=== PATIENT | female | born 1940 | race Caucasian/White ===

== ENCOUNTER 2016-07-11 09:05 | Inpatient (IN) | payer MEDICARE, OTHER ==
--- NOTE | 2016-06-28 08:29 | HP ---
HISTORY AND PHYSICAL: DATE OF ADMISSION/SURGERY: 07/11/16 DATE OF OFFICE VISIT: 06/23/16 ATTENDING SURGEON: Eulalia Jones MD. PROCEDURE: Right total knee arthroplasty. CHIEF COMPLAINT: Right knee pain. HISTORY OF PRESENT ILLNESS: The patient is a very pleasant 76-year-old female with a longstanding history of osteoarthritis of her right knee, who has elected to undergo a right knee replacement on 07/11/[address] Eulalia Jones after failing conservative treatment. PAST MEDICAL HISTORY: 1. Hypertension. 2. Asthma. 3. Hypercholesterolemia. 4. History of breast cancer. 5. Osteoarthritis, right knee. PAST SURGICAL HISTORY: 1. Partial meniscectomy. 2. Left knee replacement. MEDICATIONS: 1. Hydrochlorothiazide 5 mg one tablet by mouth daily. 2. Nifedipine ER 60 mg one tablet by mouth daily. 3. Prinivil 5 mg one tablet by mouth daily. 4. Evista 600 mg one tablet by mouth daily. 5. Ibuprofen 200 mg p.o. p.r.n. 6. Cuca allergy 180 mg one tablet by mouth daily. 7. Vitamin D supplement. 8. Fish oil supplement. 9. Multivitamin supplement daily. 10. Tums supplement as needed. 11. Xanax, unknown dosage for sleeping. 12. Melatonin. ALLERGIES: No known drug allergies. FAMILY HISTORY: Maternal cancer and hypertension, paternal hypertension. SOCIAL HISTORY: No tobacco use, no alcohol use. Currently living with . REVIEW OF SYSTEMS: General: Negative for fevers, chills, night sweats. No difficulty with anesthesia. HEENT: Negative for headaches, lightheadedness, or syncopal episodes. Integument: Negative for abrasions, lesions, open wounds or sores. Cardiothoracic: Negative for chest pain, palpitations or edema. Positive for hypertension. Pulmonary: Negative for shortness of breath with exertion, chronic cough, or COPD. GI: Negative for nausea, vomiting, constipation, diarrhea. Positive for GERD. : Negative for nocturia, urinary frequency, urgency, history of UTIs, or kidney problems. Musculoskeletal: Positive for intermittent back pain. Positive for bilateral shoulder pain. Positive for right knee pain. Neuro: Negative for paresthesias , numbness. No history of seizure, stroke, or epilepsy. Endocrine: Negative for diabetes. Negative for thyroid issues. Hematologic: Positive for easy bruising. Negative for anemia. Negative for excessive bleeding. No history of DVT or PE. ID: No history of MRSA, hepatitis C or HIV. PHYSICAL EXAMINATION GENERAL: Well appearing, in no acute distress, alert and oriented. VITAL SIGNS: Height 63 inches, weight 142 pounds, pulse 54, blood pressure 150/ 64, temperature 97.6, BMI 25.2. HEENT: Normocephalic, atraumatic, EOMI. PULMONARY: Lungs clear to auscultation bilaterally. No crackles, rhonchi or wheezes. CARDIAC: Regular rate and rhythm. Normal S1, S2. Positive grade 3 heart murmur. No edema noted bilaterally. ABDOMEN: Soft, nontender and nondistended. Normoactive bowel sounds. Negative CVA tenderness bilaterally. NEUROLOGIC: Alert and oriented x3. Cranial nerves grossly intact. Sensation intact to light touch. MUSCULOSKELETAL: No open wounds or sores bilateral lower extremities. Posterior tibialis pulses 2+ bilaterally. Negative Guero sign bilaterally. Approximately 15 degrees valgus deformity with MCL laxity. RADIOGRAPH: Three views of the knee acquired on 06/02/16. ASSESSMENT AND PLAN: The patient is very pleasant 76-year-old female who is currently scheduled to undergo a right total knee arthroplasty on 07/13/16. The patient met with Dr. Jones who reviewed the risks and benefits of the procedure as well as the informed consent. Prescriptions for Coumadin, Percocet and Colace were sent to the patient's pharmacy for postoperative pain management and DVT prophylaxis. The patient had no further questions or concerns, and will contact us if any do arise. She was cleared by her primary care physician, Dr. Cool, on 06/20/16. DIGNA VILLELA [id number]/[facility] #: [id number] MTDMoses
[~2016-07-11 09:05] MED LIST: Buffered Lidocaine 1% SYRIN* 3 ML/SYR SYRINGE INTRADERM ONE; Dexamethasone IV* 4 MG/ML 1 ML (4 MG) IV SLOW PU ONE; DiMENhydriNATE IV* 50 MG/ML VIAL IV PUSH PRN; Famotidine IV* 10 MG/ML 2 ML (20 mg) IV ONE; HYDROmorphone* 1 MG/ML 1 ML SYR ONE; Midazolam* 1 MG/ML 2 ML VIAL (2 MG) ONE; Morphine PF AMP (0.5MG/ML)* 5 MG/10 ML AMP ONE; Ondansetron INJ* 2 MG/ML VIAL IV PRN; PROCHLORPERAZINE INJ 5 MG/ML 2 ML VIAL IV PRN; fentaNYL* 50 MCG/ML 2 ML VIAL (100 MCG VIAL) IV PRN; fentaNYL* 50 MCG/ML 2 ML VIAL (100 MCG VIAL) ONE
[2016-07-11] MEDS ORDERED: ceFAZolin 2 GM PREMIX(*) 2 GM/50 ML BAG IVPB ONE (09:20)
[2016-07-11] MEDS ORDERED: Dexamethasone IV* 4 MG/ML 1 ML (4 MG) ONE (09:20)
[2016-07-11] MEDS ORDERED: Famotidine IV* 10 MG/ML 2 ML (20 mg) ONE (09:20)
[2016-07-11] MEDS ORDERED: fentaNYL* 50 MCG/ML 2 ML VIAL (100 MCG VIAL) ONE ×2 (10:15→13:01)
[2016-07-11] MEDS ORDERED: HYDROmorphone* 1 MG/ML 1 ML SYR ONE ×2 (10:56→14:35)
[2016-07-11] MEDS ORDERED: Meperidine SYRINGE* 50 MG/ML ONE (12:26)
[2016-07-11] MEDS ORDERED: DiMENhydriNATE IV* 50 MG/ML VIAL IV PUSH PRN (13:11)
[2016-07-11] MEDS ORDERED: Ondansetron INJ* 2 MG/ML VIAL IV PRN (13:11)
[2016-07-11] MEDS ORDERED: Naloxone* 0.4 MG/ML 1 ML VIAL IV PRN (13:11)
[2016-07-11] MEDS ORDERED: Nalbuphine* 20 MG/ML 1 ML VIAL IV PRN (13:11)
[2016-07-11] MEDS ORDERED: PROCHLORPERAZINE INJ 5 MG/ML 2 ML VIAL IV PRN (13:11)
[2016-07-11] MEDS ORDERED: diPHENhydraMINE IV* 50 MG/ML 1 ml VIAL (BENADRYL) IV PRN (13:11)
[2016-07-11] MEDS ORDERED: Acetaminophen TAB* 325 MG PO PRN (15:20)
[2016-07-11] MEDS ORDERED: Bisacodyl SUPP* 10 MG SUPP PR PRN (15:20)
[2016-07-11] MEDS ORDERED: Polyethylene Glycol 3350* 17 GM PACKET PO PRN (15:20)
[2016-07-11] MEDS ORDERED: LACTULOSE* 30 ML UDC PO PRN (15:20)
[2016-07-11] MEDS ORDERED: Albuterol 2.5 MG/3 ML NEB.SOL* (0.083%) INH PRN (15:50)
--- NOTE | 2016-07-11 16:07 | RAD ---
INDICATION: Status post total right knee replacement surgery. COMPARISON: Comparison is made with a prior x-ray study of the right knee from June 02, 2016. TECHNIQUE: 2 views of the right knee were obtained. FINDINGS: The patient is status post total knee replacement surgery. The bones and prostheses are in normal alignment. There is a small amount of air within the joint and surrounding soft tissues consistent with the patient's recent surgery. IMPRESSION: STATUS POST TOTAL RIGHT KNEE REPLACEMENT SURGERY.
[2016-07-11] MEDS ORDERED: Warfarin TAB(*) 6 MG PO ONE (21:00)
--- NOTE | 2016-07-11 21:16 | CONS ---
CONSULTATION REPORT: DATE OF ADMISSION: 07/11/16 PRIMARY CARE PROVIDER: Dr. Cool. ATTENDING PHYSICIAN WHILE IN THE HOSPITAL: [place] Thorne DO (report dictated by Chaitanya Davison NP). REQUESTING PHYSICIAN FOR CONSULT: Dr. Eulalia Jones. REASON FOR MEDICAL CONSULTATION: Medical management of comorbid medical conditions. HISTORY OF PRESENT ILLNESS: I refer you to Dr. Jones's H and P for further details. In short, Ms. Ocampo is a 76-year-old female patient who presented to Dr. Jones's services today for an elective right total knee replacement. She has been dealing with right knee pain for sometime to the point where the knee pain has been affecting her activities of daily living. She had been failing conservative management and she sought care with Dr. Jones and it was felt that a total knee replacement was warranted and the patient pursued this option. She does carry a history of hypertension, asthma, hyperlipidemia, breast cancer, and osteoporosis. She was evaluated in the PACU. She said she is feeling well and she has a dry mouth as her biggest complaint. She denies having any chest pain. She denies having any abdominal discomfort. Denies feeling nauseous. She says she has no feeling in the lower extremities. Denies any lightheadedness or dizziness. She says she just feels tired. Because of her medical complexity, the hospitalist service was asked to evaluate in consult. PAST MEDICAL HISTORY: Significant for: 1. Hypertension. 2. Asthma. 3. Hyperlipidemia. 4. Breast cancer. 5. Osteoporosis. PAST SURGICAL HISTORY: 1. She has had a left total knee replacement. 2. Now, she has had a right total knee replacement. 3. She has had a history of a breast surgery for breast cancer. HOME MEDICATIONS: According to the list that she provided preoperatively include: 1. Lactase enzyme 0.5 to 2 tabs p.o. before meals as needed. 2. Turmeric 1 tablet p.o. daily. 3. Simvastatin 20 mg p.o. daily. 4. Evista 60 mg daily. 5. [place]-3 fatty acids 1000 mg p.o. q.a.m. 6. Nifedipine 60 mg p.o. daily. 7. Multivitamin 1 tablet p.o. q.a.m. 8. Melatonin 3 mg p.o. at bedtime as needed. 9. Lisinopril 5 mg p.o. daily. 10. Ibuprofen 400 mg p.o. every day as needed. 11. Fexofenadine 60 mg p.o. daily as needed. 12. Vitamin D 1000 units p.o. daily. 13. Calcium carbonate 500 mg p.o. daily as needed. 14. Dymista 1 spray both nares b.i.d. 15. Xanax 0.5 mg p.o. at bedtime as needed. ALLERGIES TO MEDICATIONS: Include SHELLFISH, LATEX, GRAPES, KIWI. FAMILY HISTORY: Her mother had a history of cancer. Father's history was reviewed and noncontributory. SOCIAL HISTORY: The patient is a nonsmoker. She does not drink alcohol. Surrogate decision maker is her . REVIEW OF SYSTEMS: There is no documented fever. She denied having any significant weight change. There was no double vision. No ear discharge. There is no rhinorrhea. No sore throat. No thyroid enlargement. She denied having any chest pain. There is no orthopnea. No nocturnal dyspnea. There is no abdominal pain. No nausea. No vomiting. No dysuria. No frequency. No seizure. No loss of consciousness. No pruritus. No skin ulcerations. Review of 14 systems completed, all others negative. PHYSICAL EXAMINATION: Vital Signs: Blood pressure 103/51, pulse 71, respirations 14, O2 sat 99%, temperature 97.9. Generally, at this time, Ms. Ocampo is a 76- year-old female patient. She does not appear to be in any acute distress. She is well nourished, well developed. HEENT: Head is atraumatic, normocephalic. Eyes: EOMs are intact. Sclerae were anicteric and not pale. Throat: Oral mucosa appears to be dry. No oropharyngeal erythema. Neck was supple. Heart: Sounds S2. Regular rate and rhythm. No murmurs, rubs , or gallops. Lungs: Clear to auscultation bilaterally. No wheezes, rales, or rhonchi. Abdomen was soft, flat. Bowel sounds hypoactive. Extremities: Pulses were 2+ throughout. She is unable to move the lower extremities because of the spinal and nerve block. She is moving the upper extremities with 5/5 strength. Neurologically, she is awake, alert, and oriented x3. She is drowsy , but she has no gross focal deficits. The skin is intact. She has an incision to her right lower extremity, which is covered with an Kamlesh dressing, is clean, dry, and intact. DIAGNOSTIC STUDIES/LAB DATA: Her labs preop revealed WBC of 6.2, RBC of 4.22, hemoglobin 12.8, hematocrit of 39, platelet count of 189. The INR was 0.90. Sodium 139, potassium 3.7, chloride of 105, bicarb 30, BUN 27, creatinine of 0.92, glucose of 108. Urine preop showed 1+ leukocyte esterase, 1+ rbc. Microbiology was negative. She had a preop EKG, which showed a normal sinus rhythm, rate of 70. No ST elevation or T-wave inversions. There was a preop chest x-ray, which revealed hyperinflation consistent with COPD. No active cardiopulmonary disease. Old medical records were reviewed. ASSESSMENT AND PLAN: Ms. Ocampo is a 76-year-old female patient coming in to the orthopedic services today for an elective right total knee replacement. We were asked to evaluate for medical management of her medical problems. Recommendations at this point are: 1. Status post right total knee replacement: I will defer the management to Dr. Jones and her team. 2. Hypertension: Her blood pressure here is in the low 100s. She did get the Duramorph. So, I am going to hold her antihypertensives and restart them when able. 3. Asthma: I have ordered p.r.n. albuterol. 4. Hyperlipidemia: Continue statin therapy. 5. Breast cancer: Continue current medical regimen. Follow with her primary. 6. Osteoporosis: Continue her Evista. 7. DVT prophylaxis: We will defer to the primary team. 8. Fluids, electrolytes, and nutrition. She can have a regular diet. 9. Code status: Full code. TIME SPENT: Time spent on the consult was 60 minutes; greater than half the time was spent [id number] with the patient obtaining my history and physical, the other half the time spent going over the plan of care with the patient and implementing plan of care. I did discuss the plan of care with my attending, Dr. Thorne; she is in agreement. CHAITANYA DAVISON NP CC: Dr. Cool* [id number]/[facility] #: [id number] ALEXA
[2016-07-11] MEDS: Docusate CAP* 100 MG PO SCH (21:47)
[2016-07-11] MEDS: ceFAZolin 1 GM in Dextrose (*) 1 GM/50 ML BAG IVPB SCH (21:57)
[2016-07-11] MEDS: oxyCODONE/Acetamin 5/325 MG* TAB PO PRN (23:06)
[2016-07-12] MEDS: oxyCODONE/Acetamin 5/325 MG* TAB PO PRN ×4 (04:59→21:44)
[2016-07-12] MEDS ORDERED: diPHENhydraMINE IV* 50 MG/ML 1 ml VIAL (BENADRYL) IV PRN (05:00)
[2016-07-12] MEDS ORDERED: Morphine INJ* 2 MG/ML 1 ML SYRINGE IV PRN (05:00)
[2016-07-12] MEDS ORDERED: oxyCODONE TAB* 5 MG TAB PO PRN (05:00)
[2016-07-12] MEDS ORDERED: Ondansetron TAB* 4 MG PO PRN (05:00)
[2016-07-12] MEDS ORDERED: oxyCODONE/Acetamin 5/325 MG* TAB PO PRN (05:00)
[2016-07-12] MEDS: ceFAZolin 1 GM in Dextrose (*) 1 GM/50 ML BAG IVPB SCH ×2 (05:36→13:46)
[2016-07-12 06:14] LABS: Hematocrit 33 % (35-47); Hemoglobin 10.7 g/dl (12.0-16.0)
[2016-07-12 06:33] LABS: BUN/Creatinine Ratio 21.7 (8-20); EGFR African American 106.7 (>60); EGFR Non-African American 82.9 (>60); Potassium 3.9 mmol/L (3.5-5.0)
--- NOTE | 2016-07-12 07:21 | OP ---
DATE OF OPERATION: 07/11/16 - ROOM #346 DATE OF : 42 SURGEON: Eulalia Jones MD. FUNCTIONAL SUPPORT ANALYST: DIGNA Beach. ANESTHESIOLOGIST: Dr. Pickering. ANESTHESIA: Spinal with adductor nerve block. PRE-OP DIAGNOSIS: Severe endstage degenerative osteoarthritis of the right knee joint with valgus deformity. POST-OP DIAGNOSIS: Severe endstage degenerative osteoarthritis of the right knee joint with valgus deformity and extreme osteopenia. OPERATIVE PROCEDURE: Right total knee arthroplasty. TOURNIQUET TIME: 53 minutes. ESTIMATED BLOOD LOSS: 200 cc. COMPLICATIONS: None. SPECIMEN: Bone and cartilage from the right knee joint sent to Pathology. HARDWARE: This is a [employer] cemented total knee hardware. Two packages of Simplex bone cement were used. For the femur, a size 5 right narrow posterior stabilized Legion femoral component; for the tibia a size 4 right tibial base plate; for the insert a 9 mm posterior stabilized insert; and for the patella a 32 mm 7.5 thickness 2-peg all-poly patella. BRIEF HISTORY/INDICATIONS: Ms. Ocampo is a 76-year-old female with years of increasingly severe right knee pain and valgus deformity. She failed conservative treatment with antiinflammatories, pain medications, intraarticular injections and physical therapy. She elected to undergo a right total knee arthroplasty due to continued pain and decreased quality of life. Radiographs confirmed [id number] arthritis in the lateral compartment. Informed consent was obtained from the patient. She understood the risks of the surgery included but were not limited to bleeding, infection, damage to nearby structures, continued pain, need for further surgery, intraoperative fracture, nerve palsy, hardware failure or loosening, knee stiffness, loss of motion, stroke, heart attack, blood clot and . She wished to proceed. INTRAOPERATIVE FINDINGS: Intraoperatively, the patient was noted to have 12- degree valgus deformity preoperatively, which was corrected to anatomic valgus alignment. She had some recurvatum preoperatively and 130-degrees of flexion. The patient was noted to have significant lateral femoral condylar hypoplasia. Complete loss of cartilage in the lateral and patellofemoral compartments was noted. DESCRIPTION OF PROCEDURE: Ms. Ocampo was identified in the preanesthesia unit. Her right lower extremity was marked as the correct operative side. Informed consent was signed and placed in the chart. The patient was taken to the operating room and placed under spinal anesthesia with an adductor nerve block. A Damon catheter was placed. Thigh-high tourniquet was placed on the right thigh. The right lower extremity was prepped and draped in the usual sterile fashion. A preop time-out was made to correctly identify the patient's side and site. Appropriate perioperative antibiotics were given within 1 hour of incision. Tourniquet was inflated and total tourniquet time for this procedure was 53 minutes. A 12 cm midline incision was made with a 10 blade and carried down to the extensor mechanism. A new 10 blade was used to make a standard medial peripatellar arthrotomy. The patella was subluxed laterally. Electrocautery was used to subperiosteally elevate soft tissue off the superomedial tibia to the mid sagittal plane. The knee was flexed up. Anterior horn of the lateral meniscus and ACL were sharply released. A drill was used to enter the distal femur. Intramedullary distal femoral cutting guide was pinned on the distal femur. Significant lateral femoral condylar hypoplasia was noted and accounted for. Oscillating saw was used to make the distal femoral cut. Next, the external rotation guide was placed on the distal femur and the distal femur was sized to a size 5. Size 5 multi-cutting jig was placed on the distal femur and the appropriate four chamfer cuts were made with an oscillating saw. The PCL was completely released. The tibia was subluxed anteriorly. Extramedullary tibial cutting guide was pinned on the proximal tibia. Oscillating saw was used to make the appropriate proximal tibial cut. The bone was carefully removed. The knee was brought out into full extension. Spacer blocks fit well with some mild lateral tightness. A 15-blade was used to piecrust lateral ligament conservatively. Medial and lateral ligaments balancing was much improved. Flexion and extension gap was well balanced. A trial 5 narrow right femur was impacted onto the distal femur. The box for the posterior stabilized implant was prepared using a reamer and box cut osteotome. A large intraosseous cyst was noted and there was some bone loss here. Trial size 4 tibial tray and a 9 mm insert trial were placed. The knee was taken through a range of motion. It had full extension to 130 degrees of flexion with good patellofemoral tracking. The patella was everted. The patella was noted to have complete loss of cartilage. 7 mm of patellar bone and cartilage was removed with an oscillating saw. The patella was sized to a size 32. Three peg holes were drilled through the size 32 guide. A trial 7.5 thickness, 32 patella was placed and the knee was taken through a range of motion. There was good patellofemoral tracking. All trials were carefully removed. The knee was flexed up and the tibia was subluxed anteriorly. The tibia was sized to a size 4. Proximal tibia was prepared using a keel punch. All bony cut surfaces were copiously irrigated and dried. It was noted once again that there was severe osteopenia involving this bone, which was quite remarkable. Final implants were cemented into place starting with the tibia followed by the femur and last the patella. A 9 mm insert trial was placed while the knee was brought out to full extension and the cement was allowed to fully cure. Tourniquet was turned down at 53 minutes. Once the cement had fully cured, the knee was copiously irrigated with sterile saline. Electrocautery was used to obtain meticulous hemostasis. A 9 mm insert trial was chosen as the final insert. This was locked into position on the tibial tray. Stability of the insert was checked and rechecked, and noted to be stable. The knee was once again copiously irrigated with sterile saline. The extensor mechanism was closed using interrupted #1 Vicryls. The rest of the incision was closed in a layered fashion using 0 and 2-0 Vicryls. Skin was closed using running 3-0 nylon suture. Sterile Xeroform, 4x4s and Webril were used to cover the incision. Kamlesh wrap and cold pack were placed over this. The patient's anesthesia was reversed without difficulty. She was taken to PACU in stable condition. Intended weightbearing will be weightbearing as tolerated. Intended DVT prophylaxis will be Coumadin with a Lovenox bridge. [id number]/[facility] #: [id number] ALEXA
[2016-07-12] MEDS: RALOXIFENE 60 MG PO SCH (08:50)
[2016-07-12] MEDS ORDERED: NIFEdipine ER TAB* 60 MG PO SCH (09:00)
[2016-07-12] MEDS ORDERED: Lisinopril TAB* 5 MG PO SCH (09:00)
[2016-07-12] MEDS: NIFEdipine ER TAB* 60 MG PO SCH (09:05)
[2016-07-12] MEDS: Atorvastatin* 10 MG TAB PO SCH (09:06)
[2016-07-12] MEDS: Docusate CAP* 100 MG PO SCH ×2 (09:06→21:44)
--- NOTE | 2016-07-12 09:44 | PN ---
Progress Note - Progress Note SOAP: Subjective: []Patient seen OOB in chair, pleasant but slightly anxious. Pain well managed. Denies SOB, CP or dizziness. Objective: [] Vital Signs Temp 97.5 F 07/12/16 07:40 Pulse 55 07/12/16 07:40 Resp 18 07/12/16 09:06 BP 153/58 07/12/16 07:40 Pulse Ox 99 07/12/16 08:00 Intake & Output 07/11/16 07/12/16 07/12/16 18:59 06:59 18:59 Intake Total 1900 1634 250 Output Total 1750 300 Balance 150 1334 250 Weight 142 lb 3.2 oz Intake: IV Fluids 1900 744 LR 1900 744 IVPB 50 ABX - CEFAZOLIN 50 Oral 840 250 Output: Urine 450 Damon 1100 300 Estimated Blood Loss 200 Laboratory Results - last 24 hr 07/12/16 07/12/16 07/12/16 05:32 05:32 05:32 Hgb 10.7 L Hct 33 L INR (Anticoag Therapy) 0.93 Sodium 136 Potassium 3.9 Chloride 104 Carbon Dioxide 25 Anion Gap 7 BUN 15 Creatinine 0.69 Est GFR ( Amer) 106.7 Est GFR (Non-Af Amer) 82.9 BUN/Creatinine Ratio 21.7 H Glucose 121 H Calcium 9.0 Right knee dressings are dry and intact calf NT and soft +DF/PF right ankle sensation intact Assessment: []s/p Right total knee arthroplasty POD #1 Plan: []PT/OT WBAT RLE Coumadin with Lovenox bridge, 8mg today
--- NOTE | 2016-07-12 12:22 | PN ---
Subjective Date of Service: 07/12/16 Interval History: This is a 76 yo female who is s/p R TKR. Hospitalist group is consulting for medical co-management. Patient reports that she still feels that she is in "a fog", she was noted to be fairly confused and anxious this am, seems to be improving as the day goes on. She denies CP, SOB, abd pain, n/v. Objective Active Medications: Acetaminophen (Tylenol Tab*) 650 mg PO Q4H PRN PRN Reason: PAIN OR TEMPERATURE Albuterol (Ventolin 2.5 Mg/3 Ml Neb.Bonnie*) 2.5 mg INH Q2H PRN PRN Reason: SOB/WHEEZING Atorvastatin Calcium (Lipitor*) 10 mg PO DAILY [facility] Last Admin: 07/12/16 09:06 Dose: 10 mg Bisacodyl (Dulcolax Supp*) 10 mg NM DAILY PRN PRN Reason: constipation Diphenhydramine HCl (Benadryl Iv*) 12.5 mg IV Q6H PRN PRN Reason: PRURITIS Docusate Sodium (Colace Cap*) 100 mg PO BID [facility] Last Admin: 07/12/16 09:06 Dose: 100 mg Enoxaparin Sodium (Lovenox(*)) 30 mg SUBCUT Q24H [facility] Cefazolin Sodium/Dextrose (Kefzol 1 Gm In Dextrose Duplex (*)) 1 gm in 50 mls @ 200 mls/hr IVPB Q8H [facility] Stop: 07/12/16 14:14 Last Admin: 07/12/16 05:36 Dose: 200 mls/hr Lactated Ringer's (Lactated Ringers 1000 Ml Bag*) 1,000 mls @ 100 mls/hr IV PER RATE [facility] Last Admin: 07/12/16 09:04 Dose: 100 mls/hr Lactulose (Lactulose*) 30 ml PO Q6H PRN PRN Reason: constipation Magnesium Hydroxide (Milk Of Magnesia Liq*) 30 ml PO Q6H PRN PRN Reason: constipation Morphine Sulfate (Morphine Inj (Syringe)*) 2 mg IV Q2H PRN PRN Reason: PAIN Nifedipine (Procardia Xl Tab*) 60 mg PO DAILY [facility] Last Admin: 07/12/16 09:05 Dose: 60 mg Ondansetron HCl (Zofran Tab*) 4 mg PO Q6H PRN PRN Reason: NAUSEA Oxycodone HCl (Roxycodone Tab*) 10 mg PO Q4H PRN PRN Reason: SEVERE PAIN Oxycodone/Acetaminophen (Percocet 5/325 Tab*) 1 tab PO Q3H PRN PRN Reason: PAIN - MODERATE Last Admin: 07/12/16 09:06 Dose: 1 tab Oxycodone/Acetaminophen (Percocet 5/325 Tab*) 2 tab PO Q4H PRN PRN Reason: PAIN Polyethylene Glycol/Electrolytes (Miralax*) 17 gm PO DAILY PRN PRN Reason: Constipation Raloxifene HCl (Evista(Nf)) 60 mg PO DAILY FRANK PRN Reason: Protocol Last Admin: 07/12/16 08:50 Dose: Not Given Warfarin Sodium (Coumadin Tab(*)) 8 mg PO ONCE@1700 ONE PRN Reason: Protocol Stop: 07/12/16 17:01 Vital Signs: Temp Pulse Resp BP Pulse Ox 97.5 F 55 18 153/58 99 07/12/16 07:40 07/12/16 07:40 07/12/16 09:06 07/12/16 07:40 07/12/16 08:00 Appearance: Well appearing, slightly anxious, NAD Neck: NL Appearance and Movements; NL JVP Respiratory: Symmetrical Chest Expansion and Respiratory Effort, Clear to Auscultation Cardiovascular: NL Sounds; No Murmurs; No JVD, RRR Abdominal: NL Sounds; No Tenderness; No Distention Extremities: No Edema Skin: No Rash or Ulcers Neurological: Alert and Oriented x 3 Result Diagrams: 07/12/16 05:32 07/12/16 05:32 Assess/Plan/Problems-Billing Assessment: This is a 76 yo female with HTN, asthma, HLD and h/o BCA who underwent elecitive R TKR with Dr Jones 07/12/16. Hospitalist group is comanaging. - Patient Problems (1) Status post total knee replacement Comment: POD #1 management per ortho (2) HTN (hypertension) Comment: Noted mild HTN this am and overnight Restarted nifedipine, but will cont to hold lisinopril until tomorrow (3) Asthma Comment: Mild intermittent No acute exacerbation (4) HLD (hyperlipidemia) (5) Full code status (6) DVT prophylaxis Comment: Coumadin with Lovenox bridge per ortho Status and Disposition: Discharge planning per ortho. No acute medical concern. Hospitalists will continue to follow along
[2016-07-12] MEDS: Enoxaparin(*) 30 MG/0.3 ML SYR SUBCUT SCH (12:23)
--- NOTE | 2016-07-12 15:45 | PN ---
Hospitalist Progress Note CAT call: Patient experienced a pre-syncopal episode during PT. She was severely hypotensive (56/36), upon recheck it quickly improved. Upon re- evaluation ~1 hour later, patient reports feeling well. Denies dizziness, MARES, vision changes, SOB, CP. Repeat H&H and orthostatic vital signs requested.
[2016-07-12 15:53] LABS: Hematocrit 31 % (35-47); Hemoglobin 10.1 g/dl (12.0-16.0)
[2016-07-12 15:54] LABS: Comments Flag Yes
[2016-07-12] MEDS ORDERED: Warfarin TAB(*) 4 MG PO ONE (17:00)
[2016-07-13 05:38] LABS: Hematocrit 29 % (35-47); Hemoglobin 9.7 g/dl (12.0-16.0); Mean Platelet Volume 9 um3 (7.4-10.4)
[2016-07-13] MEDS: RALOXIFENE 60 MG PO SCH (08:07)
[2016-07-13] MEDS: Atorvastatin* 10 MG TAB PO SCH (08:08)
[2016-07-13] MEDS: oxyCODONE/Acetamin 5/325 MG* TAB PO PRN (08:08)
[2016-07-13] MEDS: Docusate CAP* 100 MG PO SCH ×2 (08:08→20:28)
[2016-07-13] MEDS: NIFEdipine ER TAB* 60 MG PO SCH (08:09)
[2016-07-13] MEDS: Magnesium Hydroxide LIQ* 30 ML UDC PO PRN ×2 (08:09→20:29)
[2016-07-13] MEDS ORDERED: Lisinopril TAB* 5 MG PO SCH (09:00)
--- NOTE | 2016-07-13 12:07 | PN ---
Progress Note - Progress Note SOAP: Subjective: []Patient seen OOB in chair. She has had 2 episodes of hypotension while up with therapy. She thinks it may be related to the narcotic pain medications. She feels fine currently and denies SOB, CP or current dizziness. Objective: [] Vital Signs Temp 98.1 F 07/13/16 07:29 Pulse 80 07/13/16 11:08 Resp 16 07/13/16 11:08 BP 93/39 07/13/16 10:29 Pulse Ox 96 07/13/16 11:08 Intake & Output 07/12/16 07/13/16 07/13/16 18:59 06:59 18:59 Intake Total 1149 1564 360 Output Total 350 1450 200 Balance 799 114 160 Intake: IV Fluids 644 566 LR 644 566 IVPB 55 498 ABX - CEFAZOLIN 55 LR 498 Oral 450 500 360 Output: Urine 200 1450 200 Damon 150 Laboratory Results - last 24 hr 07/12/16 07/13/16 07/13/16 15:46 05:08 05:08 Hgb 10.1 L 9.7 L Hct 31 L 29 L Plt Count 159 MPV 9 INR (Anticoag Therapy) 1.29 H Right knee dressings changed this am by Dr. Jones, reported benign calf NT and soft +DF/PF right ankle Assessment: []s/p Right total knee arthroplasty POD #2 Plan: []PT/OT WBAT RLE Coumadin 6mg today Change pain meds to Tramadol/ Tylenol monitor hypo tension- Medicine co- managing Possible discharge home 07/14 if medically stable
[2016-07-13] MEDS: Enoxaparin(*) 30 MG/0.3 ML SYR SUBCUT SCH (12:22)
[2016-07-13] MEDS: traMADol TAB* 50 MG PO PRN ×2 (13:22→20:28)
--- NOTE | 2016-07-13 14:40 | PN ---
Subjective Date of Service: 07/13/16 Interval History: Patient reports no acute complaints. She had another hypotensive episode during PT associated with c/o dizziness. No syncope. Reports that apart from that acute episode she feels well. Denies CP, SOB, abd pain, n/v. Objective Active Medications: Acetaminophen (Tylenol Tab*) 650 mg PO Q4H PRN PRN Reason: PAIN OR TEMPERATURE Albuterol (Ventolin 2.5 Mg/3 Ml Neb.Bonnie*) 2.5 mg INH Q2H PRN PRN Reason: SOB/WHEEZING Atorvastatin Calcium (Lipitor*) 10 mg PO DAILY [facility] Last Admin: 07/13/16 08:08 Dose: 10 mg Bisacodyl (Dulcolax Supp*) 10 mg [place] DAILY PRN PRN Reason: constipation Diphenhydramine HCl (Benadryl Iv*) 12.5 mg IV Q6H PRN PRN Reason: PRURITIS Docusate Sodium (Colace Cap*) 100 mg PO BID [facility] Last Admin: 07/13/16 08:08 Dose: 100 mg Enoxaparin Sodium (Lovenox(*)) 30 mg SUBCUT Q24H [facility] Last Admin: 07/13/16 12:22 Dose: 30 mg Lactated Ringer's (Lactated Ringers 1000 Ml Bag*) 1,000 mls @ 100 mls/hr IV PER RATE [facility] Last Admin: 07/12/16 23:45 Dose: 100 mls/hr Lactulose (Lactulose*) 30 ml PO Q6H PRN PRN Reason: constipation Magnesium Hydroxide (Milk Of Magnesia Liq*) 30 ml PO Q6H PRN PRN Reason: constipation Last Admin: 07/13/16 08:09 Dose: 30 ml Morphine Sulfate (Morphine Inj (Syringe)*) 2 mg IV Q2H PRN PRN Reason: PAIN Last Admin: 07/12/16 23:50 Dose: 2 mg Ondansetron HCl (Zofran Tab*) 4 mg PO Q6H PRN PRN Reason: NAUSEA Polyethylene Glycol/Electrolytes (Miralax*) 17 gm PO DAILY PRN PRN Reason: Constipation Raloxifene HCl (Evista(Nf)) 60 mg PO DAILY [facility] PRN Reason: Protocol Last Admin: 07/13/16 08:07 Dose: 60 mg Tramadol HCl (Ultram*) 50 mg PO Q6H PRN PRN Reason: PAIN Last Admin: 07/13/16 13:22 Dose: 50 mg Warfarin Sodium (Coumadin Tab(*)) 6 mg PO ONCE@1700 ONE PRN Reason: Protocol Stop: 07/13/16 17:01 Vital Signs: Temp Pulse Resp BP Pulse Ox 98.3 F 68 16 98/44 94 07/13/16 11:25 07/13/16 14:26 07/13/16 13:22 07/13/16 14:29 07/13/16 11:25 Oxygen Devices in Use Now: None Appearance: Well appearing, in NAD Neck: NL Appearance and Movements; NL JVP Respiratory: Symmetrical Chest Expansion and Respiratory Effort, Clear to Auscultation Cardiovascular: NL Sounds; No Murmurs; No JVD, RRR Abdominal: NL Sounds; No Tenderness; No Distention Extremities: No Edema Skin: No Rash or Ulcers Neurological: Alert and Oriented x 3 Result Diagrams: 07/13/16 05:08 07/12/16 05:32 Assess/Plan/Problems-Billing Assessment: This is a 76 yo female with HTN, asthma, HLD and h/o BCA who underwent elecitive R TKR with Dr Jones 07/12/16. Hospitalist group is comanaging. - Patient Problems (1) Status post total knee replacement Comment: POD #2 management per ortho (2) Hypotension Comment: She has had hypotensive episodes with PT the last 2 days Most likely vasovagal H&H stable, orthostatic vital signs WNL Will stop her antihypertensives Trial switching from Percocet to Tramadol (3) HTN (hypertension) Comment: Hypotensive episodes with PT Stop nifedipine and lisinopril at this time (4) Asthma Comment: Mild intermittent No acute exacerbation (5) HLD (hyperlipidemia) (6) Full code status (7) DVT prophylaxis Comment: Coumadin with Lovenox bridge per ortho Status and Disposition: Discharge planning per ortho. Hospitalists will continue to follow along.
[2016-07-13] MEDS ORDERED: NS 0.9% 500 ML BAG* 500 ML IV ONE (15:00)
[2016-07-13] MEDS ORDERED: Warfarin TAB(*) 6 MG PO ONE (17:00)
[2016-07-14 06:34] LABS: Hematocrit 30 % (35-47); Hemoglobin 10.2 g/dl (12.0-16.0)
[2016-07-14] MEDS: traMADol TAB* 50 MG PO PRN ×2 (07:43→15:18)
[2016-07-14] MEDS: Docusate CAP* 100 MG PO SCH (07:44)
[2016-07-14] MEDS: RALOXIFENE 60 MG PO SCH (07:44)
[2016-07-14] MEDS: Atorvastatin* 10 MG TAB PO SCH (07:44)
--- NOTE | 2016-07-14 11:47 | PN ---
Subjective Date of Service: 07/14/16 Family History: Unchanged from Admission Social History: Unchanged from Admission Past Medical History: Unchanged from Admission Objective Active Medications: Acetaminophen (Tylenol Tab*) 650 mg PO Q4H PRN PRN Reason: PAIN OR TEMPERATURE Albuterol (Ventolin 2.5 Mg/3 Ml Neb.Bonnie*) 2.5 mg INH Q2H PRN PRN Reason: SOB/WHEEZING Atorvastatin Calcium (Lipitor*) 10 mg PO DAILY [facility] Last Admin: 07/14/16 07:44 Dose: 10 mg Bisacodyl (Dulcolax Supp*) 10 mg [place] DAILY PRN PRN Reason: constipation Diphenhydramine HCl (Benadryl Iv*) 12.5 mg IV Q6H PRN PRN Reason: PRURITIS Docusate Sodium (Colace Cap*) 100 mg PO BID [facility] Last Admin: 07/14/16 07:44 Dose: 100 mg Enoxaparin Sodium (Lovenox(*)) 30 mg SUBCUT Q24H [facility] Last Admin: 07/13/16 12:22 Dose: 30 mg Lactated Ringer's (Lactated Ringers 1000 Ml Bag*) 1,000 mls @ 100 mls/hr IV PER RATE [facility] Last Admin: 07/12/16 23:45 Dose: 100 mls/hr Lactulose (Lactulose*) 30 ml PO Q6H PRN PRN Reason: constipation Last Admin: 07/13/16 15:02 Dose: 30 ml Lisinopril (Prinivil Tab*) 5 mg PO DAILY [facility] Magnesium Hydroxide (Milk Of Magnesia Liq*) 30 ml PO Q6H PRN PRN Reason: constipation Last Admin: 07/13/16 20:29 Dose: 30 ml Morphine Sulfate (Morphine Inj (Syringe)*) 2 mg IV Q2H PRN PRN Reason: PAIN Last Admin: 07/12/16 23:50 Dose: 2 mg Nifedipine (Procardia Xl Tab*) 60 mg PO DAILY [facility] Ondansetron HCl (Zofran Tab*) 4 mg PO Q6H PRN PRN Reason: NAUSEA Polyethylene Glycol/Electrolytes (Miralax*) 17 gm PO DAILY PRN PRN Reason: Constipation Raloxifene HCl (Evista(Nf)) 60 mg PO DAILY [facility] PRN Reason: Protocol Last Admin: 07/14/16 07:44 Dose: 60 mg Tramadol HCl (Ultram*) 50 mg PO Q6H PRN PRN Reason: PAIN Last Admin: 07/14/16 07:43 Dose: 50 mg Vital Signs 07/13/16 07/13/16 07/13/16 13:22 14:11 14:14 Temperature Pulse Rate 70 83 Respiratory 16 Rate Blood Pressure 82/37 70/40 (mmHg) O2 Sat by Pulse Oximetry 07/13/16 07/13/16 07/13/16 14:26 14:29 15:21 Temperature 98.0 F Pulse Rate 68 83 Respiratory 16 Rate Blood Pressure 89/42 98/44 136/56 (mmHg) O2 Sat by Pulse 96 Oximetry 07/13/16 07/13/16 07/13/16 15:22 16:00 17:16 Temperature Pulse Rate Respiratory 16 Rate Blood Pressure 142/55 (mmHg) O2 Sat by Pulse 96 Oximetry 07/13/16 07/13/16 07/13/16 19:31 19:49 20:00 Temperature 98.1 F Pulse Rate 94 93 Respiratory 16 18 20 Rate Blood Pressure 156/59 (mmHg) O2 Sat by Pulse 99 98 Oximetry 07/13/16 07/13/16 07/13/16 20:28 22:28 23:51 Temperature 97.8 F Pulse Rate 93 Respiratory 18 20 20 Rate Blood Pressure 168/70 (mmHg) O2 Sat by Pulse 98 Oximetry 07/14/16 07/14/16 07/14/16 03:24 07:43 07:55 Temperature 98.2 F 99.1 F Pulse Rate 96 93 Respiratory 16 18 17 Rate Blood Pressure 165/63 179/71 (mmHg) O2 Sat by Pulse 98 99 Oximetry 07/14/16 07/14/16 07/14/16 08:00 09:43 10:18 Temperature 98.7 F Pulse Rate 88 Respiratory 17 18 16 Rate Blood Pressure 170/72 (mmHg) O2 Sat by Pulse 98 Oximetry Oxygen Devices in Use Now: None Result Diagrams: 07/14/16 06:10 07/12/16 05:32 Assess/Plan/Problems-Billing Assessment: This is a 76 yo female with HTN, asthma, HLD and h/o BCA who underwent elecitive R TKR with Dr Jones 07/12/16. Hospitalist group is comanaging. Status and Disposition: Discharge planning per ortho. Hospitalists will continue to follow along.
[2016-07-14] MEDS ORDERED: Lisinopril TAB* 5 MG PO SCH (12:00)
[2016-07-14] MEDS ORDERED: NIFEdipine ER TAB* 60 MG PO SCH (12:00)
[2016-07-14] MEDS: Enoxaparin(*) 30 MG/0.3 ML SYR SUBCUT SCH (12:17)
--- NOTE | 2016-07-14 15:04 | PN ---
Progress Note - Progress Note SOAP: Subjective: Pt states she is doing well. She had an episode of orthostatic hypotension with PT yesterday. She was switched to tramadol and taken off of HTN meds. Since she is asx. She was up with PT with no lightheadedness. Pain is controlled. Denies F/C, CP, SOB or calf pain. Objective: PE- 76 y/o F in NAD, sitting comfortably in chair RLE- dressing changed, inc c/d/i, +DF/PF ankle, calf soft nontender, sensation intact, +2 DP pulse Vital Signs Temp Pulse Resp BP Pulse Ox 98.7 F 88 16 170/72 98 07/14/16 10:18 07/14/16 10:18 07/14/16 10:18 07/14/16 10:18 07/14/16 10:18 Laboratory Results - last 24 hr 07/14/16 07/14/16 06:10 06:10 Hgb 10.2 L Hct 30 L INR (Anticoag Therapy) 1.32 H Assessment: POD #3 S/P R TKA Plan: Hospitalists saw patient, restarted BP meds, pt is asx on medications and orthostatic BP are ok DC home with VNS WBAT cont PT Cont coumadin, tramadol for pain, and colace for constipation F/U 10-14 days post op
--- NOTE | 2016-07-14 15:24 | PN ---
Subjective Date of Service: 07/14/16 Interval History: Ms. Ocampo reports feeling well today and denies any acute syncopal episodes in PT today. She is concerned about her BP reading high and states she has been using lisinopril and nifedipine "for years" and has had no previous issues with syncope or intolerance. She reports good pain control, denies CP, SOB, MARES, dizziness, n/v. No acute concerns. Family History: Unchanged from Admission Social History: Unchanged from Admission Past Medical History: Unchanged from Admission Objective Active Medications: Acetaminophen (Tylenol Tab*) 650 mg PO Q4H PRN PRN Reason: PAIN OR TEMPERATURE Albuterol (Ventolin 2.5 Mg/3 Ml Neb.Bonnie*) 2.5 mg INH Q2H PRN PRN Reason: SOB/WHEEZING Atorvastatin Calcium (Lipitor*) 10 mg PO DAILY [facility] Last Admin: 07/14/16 07:44 Dose: 10 mg Bisacodyl (Dulcolax Supp*) 10 mg [place] DAILY PRN PRN Reason: constipation Diphenhydramine HCl (Benadryl Iv*) 12.5 mg IV Q6H PRN PRN Reason: PRURITIS Docusate Sodium (Colace Cap*) 100 mg PO BID [facility] Last Admin: 07/14/16 07:44 Dose: 100 mg Enoxaparin Sodium (Lovenox(*)) 30 mg SUBCUT Q24H [facility] Last Admin: 07/14/16 12:17 Dose: 30 mg Lactated Ringer's (Lactated Ringers 1000 Ml Bag*) 1,000 mls @ 100 mls/hr IV PER RATE [facility] Last Admin: 07/12/16 23:45 Dose: 100 mls/hr Lactulose (Lactulose*) 30 ml PO Q6H PRN PRN Reason: constipation Last Admin: 07/13/16 15:02 Dose: 30 ml Lisinopril (Prinivil Tab*) 5 mg PO DAILY [facility] Last Admin: 07/14/16 12:17 Dose: 5 mg Magnesium Hydroxide (Milk Of Magnesia Liq*) 30 ml PO Q6H PRN PRN Reason: constipation Last Admin: 07/13/16 20:29 Dose: 30 ml Morphine Sulfate (Morphine Inj (Syringe)*) 2 mg IV Q2H PRN PRN Reason: PAIN Last Admin: 04/26/17 23:50 Dose: 2 mg Nifedipine (Procardia Xl Tab*) 60 mg PO DAILY [facility] Last Admin: 07/14/16 12:17 Dose: 60 mg Ondansetron HCl (Zofran Tab*) 4 mg PO Q6H PRN PRN Reason: NAUSEA Polyethylene Glycol/Electrolytes (Miralax*) 17 gm PO DAILY PRN PRN Reason: Constipation Raloxifene HCl (Evista(Nf)) 60 mg PO DAILY [facility] PRN Reason: Protocol Last Admin: 07/14/16 07:44 Dose: 60 mg Tramadol HCl (Ultram*) 50 mg PO Q6H PRN PRN Reason: PAIN Last Admin: 07/14/16 15:18 Dose: 50 mg Vital Signs 07/13/16 07/13/16 07/13/16 15:21 15:22 16:00 Temperature 98.0 F Pulse Rate 83 Respiratory 16 16 Rate Blood Pressure 136/56 (mmHg) O2 Sat by Pulse 96 96 Oximetry 07/13/16 07/13/16 07/13/16 17:16 19:31 19:49 Temperature 98.1 F Pulse Rate 94 Respiratory 16 18 Rate Blood Pressure 142/55 156/59 (mmHg) O2 Sat by Pulse 99 Oximetry 07/13/16 07/13/16 07/13/16 20:00 20:28 22:28 Temperature Pulse Rate 93 Respiratory 20 18 20 Rate Blood Pressure (mmHg) O2 Sat by Pulse 98 Oximetry 07/13/16 07/14/16 07/14/16 23:51 03:24 07:43 Temperature 97.8 F 98.2 F Pulse Rate 93 96 Respiratory 20 16 18 Rate Blood Pressure 168/70 165/63 (mmHg) O2 Sat by Pulse 98 98 Oximetry 07/14/16 07/14/16 07/14/16 07:55 08:00 09:43 Temperature 99.1 F Pulse Rate 93 Respiratory 17 17 18 Rate Blood Pressure 179/71 (mmHg) O2 Sat by Pulse 99 Oximetry 07/14/16 07/14/16 10:18 15:18 Temperature 98.7 F Pulse Rate 88 Respiratory 16 18 Rate Blood Pressure 170/72 (mmHg) O2 Sat by Pulse 98 Oximetry Oxygen Devices in Use Now: None Appearance: Well appearing, pleasant female, OOB to chair, NAD Eyes: PERRLA Ears/Nose/Mouth/Throat: Mucous Membranes Moist Neck: NL Appearance and Movements; NL JVP Respiratory: Symmetrical Chest Expansion and Respiratory Effort, Clear to Auscultation Cardiovascular: NL Sounds; No Murmurs; No JVD, RRR Abdominal: NL Sounds; No Tenderness; No Distention Extremities: No Edema Skin: No Rash or Ulcers Lines/Tubes/Other Access: Clean, Dry and Intact Peripheral IV Nutrition: Taking PO's Result Diagrams: 07/14/16 06:10 07/12/16 05:32 Assess/Plan/Problems-Billing Assessment: This is a 76 yo female with HTN, asthma, HLD and h/o BCA who underwent elecitive R TKR with Dr Jones 07/12/16. Hospitalist group is co-managing. - Patient Problems (1) Status post total knee replacement Current Visit: Yes Status: Acute Code(s): Z96.659 - PRESENCE OF UNSPECIFIED ARTIFICIAL KNEE JOINT SNOMED Code(s): 7379510361963 Comment: POD #3 Management per ortho (2) Hypotension Current Visit: Yes Status: Acute Comment: She has had hypotensive episodes with PT the 2 days following surgery Most likely vasovagal, ? secondary to oxycodone H&H stable, orthostatic vital signs WNL Restart antihypertensives today and check orthostatic VS 2 hours following Continue tramadol prn (3) HTN (hypertension) Code(s): I10 - ESSENTIAL (PRIMARY) HYPERTENSION Comment: Hypotensive episodes with PT, now hypertensive following discontinuation of medications Resume home lisinopril and nifedipine with orthostatic VS check (4) Asthma Code(s): J45.909 - UNSPECIFIED ASTHMA, UNCOMPLICATED Comment: Mild intermittent No acute exacerbation (5) HLD (hyperlipidemia) Code(s): E78.5 - HYPERLIPIDEMIA, UNSPECIFIED Comment: Continue statin (6) DVT prophylaxis Code(s): HAV1455 - Comment: Lovenox per ortho (7) Full code status Code(s): Z78.9 - OTHER SPECIFIED HEALTH STATUS Status and Disposition: Discharge planning per ortho. Hospitalists will continue to follow along. Recommend checking orthostatic VS following administration of home antihypertensives to evaluate for further hypotensive/syncopal episodes. If patient tolerates, can be discharged on usual medication and Tramadol with outpatient f/u. If still symptomatic, may need further titration of medications.
[2016-07-14 16:54] VITALS: BP 132/64
--- NOTE | 2016-07-15 03:58 | DS ---
DISCHARGE SUMMARY: DATE OF ADMISSION: 07/11/16 DATE OF DISCHARGE: 07/14/16 PROVIDER: Eulalia Jones MD ADMITTING DIAGNOSIS: Status post right total knee arthroplasty for severe right knee osteoarthritis . SECONDARY DIAGNOSES: 1. Hypertension. 2. Asthma. 3. Hypercholesterolemia. 4. History of breast cancer. 5. Osteoarthritis of the right knee. CONSULTATIONS: Medicine, Physical Therapy, and Occupational Therapy. HISTORY OF PRESENT ILLNESS: Ms. Ocampo is a 46-year-old female with a longstanding history of oste oarthritis of the right knee causing right knee pain. She failed conservative measures and therefore agreed to undergo a right total knee replacement with Dr. Jones on 07/11/16. HOSPITAL COURSE: Ms. Ocampo was admitted to [facility] on 07/11/16. She underwent a rig ht total arthroplasty with Dr. Jones. Postoperatively, she recovered on Short-Stay Surgical Unit. On postop day 1, the Damon was removed and she was able to urinate on her own. She was advanced to a regular diet without difficulty and pain was controlled with oral pain medications. She was resta rted on home medications. Her labs and vitals; however, remained stable. She did have an episode o f lightheadedness and orthostatic hypotension during Physical Therapy. Her Percocet was stopped, her blood pressure medications were stopped, and as she was put on tramadol for pain. Her blood pressu re improved. She was replaced on her blood pressure medications and tolerated this well. She was a ble to weightbear as tolerated on the right lower extremity. She advanced appropriately with Physic al Therapy and Occupational Therapy. DVT prophylaxis was managed with Lovenox and Coumadin until sh e reached the therapeutic INR. INR on 07/12/16 was 0.93, 07/13/16 was 1.29, and 07/14/16 was 1.32. Coumadin dosing 07/11/16 at 6 mg, 07/12/16 at 8 mg, and on 07/13/16 at 6 mg. By postop day 3, she was orthopedically and medically stable for discharge to home with VNS services. PHYSICAL EXAMINATION: General: A 76-year-old well-developed, well-nourished female, in no acute di stress, sitting comfortably in chair. Dressing was changed. Incision is clean, dry, and intact. Po sitive dorsiflexion and plantarflexion of the ankle. Calf is soft and nontender. Sensation is inta ct; +2 dorsalis pedis pulse. DISCHARGE CONDITION: Stable. DISCHARGE MEDICATIONS: Home medications continued on discharge to include: 1. Lisinopril 5 mg p.o. daily. 2. Simvastatin 20 mg p.o. daily. 3. Evista 60 mg p.o. daily. 4. Nifedipine 60 mg p.o. daily. 5. Alprazolam 0.5 mg by mouth at bedtime. 6. Turmeric tablet 1 by mouth in the morning. 7. [place]-3 fatty acids 1000 mg by mouth every morning. 8. Multivitamin 1 tab by mouth every morning. 9. Melatonin 3 mg tabs daily as needed for sleep. 10. Ibuprofen 400 mg by mouth daily as needed. The patient understands not to take this with Couma din. 11. Cuca 60 mg by mouth daily as needed. 12. Vitamin D 1000 units by mouth daily. 13. Tums 500 mg by mouth daily as needed. 14. Azelastine/fluticasone 1 spray both nares twice a day. 15. Lactase enzyme 0.5 to 2 tabs by mouth as needed. NEW MEDICATION ON DISCHARGE: To include: 1. Colace 100 mg by mouth 2 to 3 times a day for constipation. 2. Warfarin 2 mg by mouth as directed by the doctor. 3. Tramadol 50 mg every 6 hours as needed for the pain. DISCHARGE INSTRUCTIONS: The patient may shower on postop day 4. She should avoid submerging in iris er such as bath or swimming pool. She may redress with 4x4's and an Kamlesh wrap as needed. She should keep the incisions intact until postop visit. She is to weightbear as tolerated in the right lower e xtremity. She should continue Physical Therapy, continue tramadol for pain, Colace for constipation , and Coumadin for DVT prophylaxis. Doses of Coumadin on 07/14/16 at 6 mg, on 07/15/16 at 6 mg, and on 07/16/16 at 6 mg and redrawn on Sunday. VNS will draw every Sunday and . The patient w as instructed to not take aspirin, naproxen, or ibuprofen with the Coumadin. She will follow up kathleen Jones in 10 to 14 days. She will call the office with questions or concerns and go to the ER i f she develops chest pain, shortness of breath, calf pain, or fever greater than 101.5. DIGNA CISNEROS [id number]/[facility] #: [id number]
== END 2016-07-14 16:40 | disposition home health service (06) | DRG 470 ==
LOC: AA 09:05 → SSU 20:54
PROVIDERS: ADMIT Orthopaedic Surgery Adult Reconstructive Orthopaedic Surgery; ATTEND Orthopaedic Surgery Adult Reconstructive Orthopaedic Surgery
PROC: 0SRC0J9 Replacement of Right Knee Joint with Synthetic Substitute, Cemented, Open Approach (ICD-10-PCS; principal; 2016-07-11 11:30)
DX: M17.11 Unilateral primary osteoarthritis, right knee (principal); I10 Essential (primary) hypertension; J45.909 Unspecified asthma, uncomplicated; Z85.3 Personal history of malignant neoplasm of breast; R42 Dizziness and giddiness; Z79.01 Long term (current) use of anticoagulants; Z96.652 Presence of left artificial knee joint; Z82.49 Family history of ischemic heart disease and other diseases of the circulatory system; Z80.9 Family history of malignant neoplasm, unspecified; K21.9 Gastro-esophageal reflux disease without esophagitis; Z87.440 Personal history of urinary (tract) infections; M25.512 Pain in left shoulder; M25.511 Pain in right shoulder; M54.9 Dorsalgia, unspecified; E78.5 Hyperlipidemia, unspecified; M85.861 Other specified disorders of bone density and structure, right lower leg; M21.061 Valgus deformity, not elsewhere classified, right knee; I95.1 Orthostatic hypotension
CPT/HCPCS: 36415; 80048; 85014; 85018; 85049; 85610; 88305; 88311; A9270-GY; C1776; J0690; J1100; J1170; J1650; J2250; J2270; J2300; J3010

== ENCOUNTER 2016-08-01 13:51 | Inpatient (IN) | payer MEDICARE, OTHER ==
[2016-08-01 15:44] LABS: Hematocrit 32 % (35-47); Hemoglobin 10.6 g/dl (12.0-16.0); Mean Corpuscular HGB Conc 33 g/dl (31-36); Mean Corpuscular Hemoglobin 31 pg (27-31); Mean Corpuscular Volume 93 fL (80-97); Mean Platelet Volume 8 um3 (7.4-10.4); Red Blood Count 3.46 10^6/ul (4.0-5.4); Red Cell Distribution Width 16 % (10.5-15)
[2016-08-01 15:58] LABS: Albumin 3.6 g/dL (3.2-5.2); BUN/Creatinine Ratio 30.1 (8-20); Calcium 9.2 mg/dL (8.6-10.3); EGFR African American 86.2 (>60); Globulin 2.8 g/dL (2-4); Magnesium 2.3 mg/dL (1.9-2.7); Total Bilirubin 0.4 mg/dL (0.2-1.0); Total Protein 6.4 g/dL (6.4-8.9)
--- NOTE | 2016-08-01 16:26 | RAD ---
Indication: Syncope, visual field disturbance. CT of the brain was performed without IV contrast. Ventricular structures are midline. No midline shift is noted. The extra-axial spaces are unremarkable. There is no evidence of intracranial mass or hemorrhage. No other high or low density lesions are identified. Mastoid air cells and paranasal sinuses are grossly unremarkable. IMPRESSION: There is no intracranial mass or hemorrhage noted.
[2016-08-01 16:33] LABS: TSH (Thyroid Stimulating Horm) 0.93 mcIU/mL (0.34-5.60)
[2016-08-01 18:30] LABS: Urine Bacteria Absent (Absent); Urine Bilirubin Negative (Negative); Urine Glucose Negative (Negative); Urine Nitrite Negative (Negative)
[2016-08-01] MEDS ORDERED: Docusate CAP* 100 MG PO PRN (19:05)
[2016-08-01] MEDS ORDERED: NS 0.9% 1000 ML* 1,000 ML IV SCH (19:15)
[2016-08-01] MEDS ORDERED: Warfarin TAB(*) 4 MG PO SCH (20:00)
--- NOTE | 2016-08-01 21:44 | HP ---
HISTORY AND PHYSICAL: DATE OF ADMISSION: 08/01/16 PRIMARY CARE PROVIDER: Dr. Javier Cool. ATTENDING PHYSICIAN: [place] Thorne DO* (dictated by Destiney Sood NP) CHIEF COMPLAINT: Near syncopal event. HISTORY OF PRESENT ILLNESS: Ms. Ocampo is a 76-year-old female with past medical history significant for hypertension, hyperlipidemia, and arthritis who is status post recent right total knee arthroplasty who was at home walking in her garden with her physical therapist when she had a feeling that she was going to pass out and saw purple dots. The patient states she did not pass out and was aware of what was going on around her and felt as though she was "dreaming," but remained aware. She states that the physical therapist felt that she may have possibly passed out. The patient reports associated nausea and diaphoresis with this episode. 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 The patient denies any recent fever, chills, chest pain, shortness of breath, diarrhea, or urinary symptoms such as dysuria. The patient feels that she has been eating and drinking well. The patient presented to the emergency room for further evaluation of her symptoms. While in the emergency room, the patient had a brain CT showing no acute findings. She had an EKG showing a sinus jt with a rate of 50. No signs of acute ischemia. She had labs that was significant for hemoglobin and hematocrit of 10.6 and 32. This appears to be similar to what the patient was during her hospitalization. Her BUN slightly elevated at 25. She had a urinalysis significant for 1+ ketones, 3+ glucose esterase, 1+ rbc, present squamous epithelial cells, present transitional epithelial cells, and hyaline cast present. Based off the patient's presentation, the hospitalists were asked to evaluate the patient for admission. PAST MEDICAL HISTORY: 1. Hypertension. 2. Asthma. 3. Hyperlipidemia. 4. Breast carcinoma. 5. Osteoporosis. PAST SURGICAL HISTORY: 1. Status post left total knee replacement. 2. Status post right total knee replacement, 07/11/16. 3. Status post partial segmental mastectomy of the right. HOME MEDICATIONS: Include: 1. Tramadol 50 mg oral every 6 hours as needed for pain. 2. Warfarin 4 mg oral daily. 3. Evista 60 mg oral daily. 4. Lactase 1500 to 3000 units oral daily as needed. 5. Cuca 60 mg oral daily as needed for allergy symptoms. 6. Vitamin D 1000 units oral daily. 7. Calcium carbonate 500 mg oral daily as needed for indigestion. 8. Dymista 1 spray to both nares twice daily. 9. Melatonin 3 mg oral daily as needed for sleep. 10. Fish oil 1000 mg oral every morning. 11. Multivitamin 1 tablet oral daily. 12. Procardia 60 mg oral daily. 13. Xanax 0.5 mg oral daily at bedtime as needed for anxiety. 14. Zocor 20 mg oral daily. 15. Lisinopril 5 mg oral daily. ALLERGIES: SHELLFISH, LATEX, GRAPES, and KIWI. FAMILY HISTORY: The patient's father passed in his 70s from a myocardial infarction. The patient denies any family history of diabetes mellitus. The patient's father had a history of esophageal cancer. SOCIAL HISTORY: The patient denies tobacco, alcohol, or recreational drug use. The patient works as a over[employer]. She is and lives with her , Moo Ocampo, who will be her surrogate decision maker in the event she is unable to make decisions for herself. He is unavailable. Her daughter, Diana Ocampo, will be her alternative surrogate decision maker. REVIEW OF SYSTEMS: I performed a 14-point review of systems. All the pertinent positives and negatives are mentioned in the history of present illness. The remaining review of systems are negative. PHYSICAL EXAMINATION GENERAL APPEARANCE: The patient is alert, pleasant, appears to be in no acute distress. VITAL SIGNS: Temperature 97.3, heart rate 73, respiratory rate 17, O2 sat 97% on room air, blood pressure 118/82. HEENT: Normocephalic, atraumatic. Pupils are equal and reactive to light. Extraocular movements are intact. RESPIRATORY: There is no accessory muscle use and the lungs are clear to auscultation bilateral. CARDIOVASCULAR: Regular rate and rhythm. S1, S2 present. There are no rubs or gallops heard. There is a soft murmur heard best at the upper left sternal border. ABDOMEN: Soft, nontender, nondistended. There are bowel sounds present x4. EXTREMITIES: There is mild lower extremity edema to the right leg. DP and PT pulses are 2+ and symmetric. MUSCULOSKELETAL: There is no clubbing or cyanosis noted. The patient exhibits good strength in all extremities. NEUROLOGICAL: The patient is alert and oriented x4. Cranial nerves II through XII are grossly intact. PSYCHOLOGICAL: The patient is calm and cooperative. SKIN: There are no rashes or abnormalities seen. DIAGNOSTIC STUDIES/LABORATORY DATA: Sodium 139, potassium 4.0, chloride 106, CO2 27, BUN 25, creatinine 0.83, glucose 101. INR 187, troponin 0.00, TSH 0.93. White blood cell count 9.0, hemoglobin 10.6, hematocrit 32, and platelet count 386. EKG shows a sinus jt with a rate of 58. There are no signs of acute ischemia and no previous EKGs for comparison. Brain CT from today. Radiologist's impression: No intracranial mass or hemorrhage. IMPRESSION: Ms. Ocampo is a 76-year-old female with past medical history significant for hypertension, hyperlipidemia who presented to the emergency room after a near syncopal episode at home while working with physical therapy. She will admitted on observation for a presyncopal episode. ASSESSMENT: 1. Presyncopal episode. The patient will be monitored on telemetry. We will get an echocardiogram to evaluate the murmur. The patient reports being told many years ago that she had a murmur, but had never had an echocardiogram. We will check orthostatic vital signs. We will give her a liter of IV fluids overnight. I suspect this could be orthostatic or vasovagal. I will ask for physical therapy to see the patient walk with her tomorrow to see if we can reproduce an episode. 2. Hypertension. The patient will be continued on her home Procardia and lisinopril. 3. Hyperlipidemia. The patient will be continued on her home Zocor. 4. Status post right total knee replacement. The patient will be continued on her warfarin. We will recheck an INR in the morning and dose her warfarin accordingly. She is slightly subtherapeutic today and is due to have an INR checked tomorrow. She will be continued on tramadol for pain control. 5. Fluid, electrolytes, and nutrition. The patient will be on a regular diet. 6. Code status. Full code. 7. DVT prophylaxis. The patient is at highest risk. She will be continued on her home warfarin and have SCDs. 8. Disposition. Observation. TIME SPENT: The time for this admission was 50 minutes, 35 minutes was spent face- to-face with the patient discussing medications, past medical history, and the events leading up to her arrival today and performing the physical examination. The case has been reviewed with the attending, Dr. Thorne, who agrees with the plan of care. Reviewed by TRISTA MARY 08/02/16 1211 CC: Dr. Javier Cool* [id number]/[facility] #: [id number] MTDD
[2016-08-01] MEDS: ALPRAZolam TAB* 0.5 MG PO PRN (23:19)
[2016-08-02] MEDS: traMADol TAB* 50 MG PO PRN ×3 (00:17→13:44)
[2016-08-02 05:31] LABS: Hematocrit 30 % (35-47); Hemoglobin 9.6 g/dl (12.0-16.0); Mean Corpuscular HGB Conc 33 g/dl (31-36); Mean Corpuscular Hemoglobin 30 pg (27-31); Mean Corpuscular Volume 92 fL (80-97); Mean Platelet Volume 8 um3 (7.4-10.4); Red Cell Distribution Width 16 % (10.5-15); White Blood Count 5.6 10^3/ul (3.5-10.8)
[2016-08-02 05:43] LABS: BUN/Creatinine Ratio 29.7 (8-20); Calcium 8.5 mg/dL (8.6-10.3); EGFR African American 98.4 (>60); EGFR Non-African American 76.5 (>60); Potassium 3.9 mmol/L (3.5-5.0)
[2016-08-02] MEDS: Lisinopril TAB* 5 MG PO SCH (07:32)
[2016-08-02] MEDS: Multivitamins/Minerals TAB PO SCH (07:32)
[2016-08-02] MEDS: Atorvastatin* 10 MG TAB PO SCH (07:33)
[2016-08-02] MEDS: NIFEdipine ER TAB* 60 MG PO SCH (08:11)
[2016-08-02] MEDS: Raloxifene (NF) 60 MG TAB PO SCH (08:13)
[2016-08-02] MEDS ORDERED: Warfarin TAB(*) 6 MG PO SCH (17:00)
--- NOTE | 2016-08-02 17:11 | ECHO ---
Patient: TOMMY RAYA [facility] Rec#: [id number] : 1940 Date: 08/02/2016 Age: 76y Height: 154.94 cm / 61.0 in Weight: 61.23 kg / 135.0 lbs Sex: F BSA: 1.6 Room#: 2 Admit Date#: 08/01/2016 Type: Inpatient Referring: Destiney Mckinney NP Reading: Jennifer Restrepo MD Hoistman: Annabelle Valadez RDCS,RDMS CC: Javier Cool MD Transthoracic Echocardiogram Indication: Syncope BP: 124/52 HR: 72 Rhythm: NSR Indications Syncope Findings History: HTN, HLD, breast cancer Technical Comments: The study quality is fair. Completed 1505 Left Ventricle: The left ventricular chamber size is normal. Mild concentric left ventricular hypertrophy is observed. Global left ventricular wall motion and contractility are within normal limits. The estimated ejection fraction is 55-60%. There is no consistent Doppler evidence of clinically significant diastolic dysfunction. Left Atrium: The left atrium is moderately dilated. Right Ventricle: The right ventricular chamber size and systolic function are within normal limits. Right Atrium: The right atrial cavity size is normal. Aortic Valve: The aortic valve leaflets are mildly thickened. There is aortic annular calcification. There is a trace of aortic regurgitation. There is mild to moderate aortic stenosis. The mean gradient of the aortic valve is 18.3 mmHg. The aortic valve area, by peak velocities, is calculated at 1.3 cm2. Highest aortic valve velocity was acquired with Pedoff in apical position. Mitral Valve: There is mitral annular calcification. There is a trace of mitral regurgitation. Tricuspid Valve: The tricuspid valve leaflets are normal. There is trace tricuspid regurgitation. No pulmonary hypertension is noted. Pulmonic Valve: The pulmonic valve structure is not well visualized. Pericardium: There is no significant pericardial effusion. Aorta: The aortic root appears normal. There is no dilatation of the aortic arch. Pulmonary Artery: The main pulmonary artery is not well visualized. Venous: The inferior vena cava appears normal in size. There is a greater than 50% respiratory change in the inferior vena cava dimension. Conclusions Mild concentric left ventricular hypertrophy is observed. Global left ventricular wall motion and contractility are within normal limits. The estimated ejection fraction is 55-60%. The right ventricular chamber size and systolic function are within normal limits. The left atrium is moderately dilated. There is mild to moderate aortic stenosis: the mean gradient is 18.3 mmHg, CHANDNI is 1.3 cm2. There is mitral annular calcification. There is a trace of mitral regurgitation. There is trace tricuspid regurgitation. No pulmonary hypertension is noted. No prior echo to compare. Measurements Name Value Normal Range RAd ISD 4CH 4.9 cm (3.4 - 4.9) RA (A4C)W 2.8 cm (2.9 - 4.6) IVSd (2D) 1.1 cm (0.6 - 1) LVPWd (2D) 1.1 cm (0.6 - 1) LVIDd (2D) 4.5 cm (3.6 - 5.4) LVIDs (2D) 3.4 cm - LV FS (2D) 24 % (25 - 45) Aortic Annulus 2 cm (1.4 - 2.6) Ao root diameter (2D) 2.9 cm (2.1 - 3.5) Ascending Ao 2.9 cm (2.1 - 3.4) Aortic arch 2.5 cm (1.8 - 3.4) LA dimension (AP) 2D 4.2 cm (2.3 - 3.8) LAd ISD 4CH 5.6 cm (2.9 - 5.3) LA ISD 4CH W 3.9 cm (2.5 - 4.5) Name Value Normal Range LA ESV SP 4CH (A/L) 69.7 ml - LA ESV SP 2CH (A/L) 65.56 ml - LA ESV BP (A/L) 67.6 ml - LA ESV BP (A/L) index 42 ml/m2 - LA ESV SP 4CH (MOD) 66.57 ml - LA ESV SP 2CH (MOD) 62.21 ml - Name Value Normal Range MV E-wave Vmax 0.9 m/sec - MV deceleration time 205 msec - MV A-wave Vmax 0.7 m/sec - MV E:A ratio 1.3 ratio - P. vein S-wave Vmax 0.7 m/sec - P. vein D-wave Vmax 0.4 m/sec - P. vein S:D Vmax ratio 1.9 ratio - P. vein A-wave duration 111 msec - LV septal e' Vmax 0.09 m/sec - LV lateral e' Vmax 0.12 m/sec - LV E:e' septal ratio 10 ratio - LV E:e' lateral ratio 7.7 ratio - Name Value Normal Range AV Vmax 2.9 m/sec - AV VTI 62.5 cm - AV peak gradient 34 mmHg - AV mean gradient 18.3 mmHg - LVOT diameter 2 cm - LVOT Vmax 1.2 m/sec - LVOT VTI 26.6 cm - LVOT peak gradient 6 mmHg - LVOT mean gradient 3.7 mmHg - DOI (VTI) 0.4 ratio - SV LVOT 80.29 ml - CHANDNI (continuity Vmax) 1.3 cm2 - CHANDNI (continuity VTI) 1.3 cm2 - AR PHT 291.2 msec - AR peak gradient 50.74 mmHg - Name Value Normal Range MV Vmax 1.1 m/sec - MV VTI 31 cm - MV peak gradient 5 mmHg - MV mean gradient 2.2 mmHg - MV PHT 65 msec - MVA (PHT) 3.4 cm2 - MVA (continuity VTI) 2.6 cm2 - Name Value Normal Range TR Vmax 2.5 m/sec - TR peak gradient 25 mmHg - RAP 3 mmHg - RVSP 28 mmHg - IVC diameter 1.4 cm - Name Value Normal Range PV Vmax 0.9 m/sec - PV peak gradient 3.2 mmHg -
--- NOTE | 2016-08-02 17:13 | PN ---
Subjective Date of Service: 08/02/16 Interval History: Pt is feeling well. She has been up and walking without any lightheadedness or dizziness. No pain in the R knee (s/p replacement last month). No SOB. She does note that the R LE is swollen and has been for a while. Objective Active Medications: Alprazolam (Xanax Tab*) 0.5 mg PO BEDTIME PRN PRN Reason: SLEEP Last Admin: 08/01/16 23:19 Dose: 0.5 mg Atorvastatin Calcium (Lipitor*) 10 mg PO DAILY [facility] Last Admin: 08/02/16 07:33 Dose: 10 mg Docusate Sodium (Colace Cap*) 100 mg PO BID PRN PRN Reason: CONSTIPATION Lisinopril (Prinivil Tab*) 5 mg PO DAILY [facility] Last Admin: 08/02/16 07:32 Dose: 5 mg Multivitamins/Minerals (Theragran/Minerals Tab*) 1 tab PO DAILY [facility] Last Admin: 08/02/16 07:32 Dose: 1 tab Nifedipine (Procardia Xl Tab*) 60 mg PO DAILY [facility] Last Admin: 08/02/16 08:11 Dose: 60 mg Raloxifene HCl (Evista(Nf)) 60 mg PO DAILY [facility] PRN Reason: Protocol Last Admin: 08/02/16 08:13 Dose: Not Given Tramadol HCl (Ultram*) 50 mg PO Q6H PRN PRN Reason: PAIN Last Admin: 08/02/16 13:44 Dose: 50 mg Warfarin Sodium (Coumadin Tab(*)) 6 mg PO 1700 [facility] PRN Reason: Protocol Vital Signs 08/01/16 08/01/16 08/01/16 18:21 18:30 19:00 Temperature Pulse Rate 67 59 Respiratory 18 18 16 Rate Blood Pressure 135/51 136/113 (mmHg) O2 Sat by Pulse 99 100 Oximetry 08/01/16 08/01/16 08/01/16 19:37 23:19 23:39 Temperature 98.2 F 98.3 F Pulse Rate 68 83 Respiratory 18 16 16 Rate Blood Pressure 166/55 118/42 (mmHg) O2 Sat by Pulse 96 97 Oximetry 08/02/16 08/02/16 08/02/16 00:17 01:19 02:17 Temperature Pulse Rate Respiratory 16 16 16 Rate Blood Pressure (mmHg) O2 Sat by Pulse Oximetry 08/02/16 08/02/16 08/02/16 04:04 07:28 07:33 Temperature 98.3 F 98.3 F Pulse Rate 79 70 Respiratory 16 16 18 Rate Blood Pressure 124/52 154/67 (mmHg) O2 Sat by Pulse 95 98 Oximetry 08/02/16 08/02/16 08/02/16 08:00 09:33 11:34 Temperature 97.9 F Pulse Rate 68 Respiratory 18 14 16 Rate Blood Pressure 123/49 (mmHg) O2 Sat by Pulse 98 Oximetry 08/02/16 08/02/16 08/02/16 13:44 15:30 15:44 Temperature 98.0 F Pulse Rate 77 Respiratory 16 20 18 Rate Blood Pressure 118/52 (mmHg) O2 Sat by Pulse 97 Oximetry 08/02/16 16:00 Temperature Pulse Rate Respiratory 18 Rate Blood Pressure (mmHg) O2 Sat by Pulse Oximetry Oxygen Devices in Use Now: None Appearance: Elderly female lying in bed, NAD Eyes: No Scleral Icterus Ears/Nose/Mouth/Throat: Mucous Membranes Moist Respiratory: Symmetrical Chest Expansion and Respiratory Effort, Clear to Auscultation Cardiovascular: NL Sounds; No Murmurs; No JVD, RRR, No Edema Abdominal: NL Sounds; No Tenderness; No Distention Extremities: No Clubbing, Cyanosis Skin: No Rash or Ulcers, No Nodules or Sclerosis Neurological: Alert and Oriented x 3 Result Diagrams: 08/02/16 04:47 08/02/16 04:47 Assess/Plan/Problems-Billing Ms Ocampo is a 76 yo F who has a h/o recent (06/2016) R TKR, HTN, HLD and asthma who presented to the ER with c/o syncope while doing PT. - Patient Problems (1) Syncope Current Visit: Yes Status: Acute Code(s): R55 - SYNCOPE AND COLLAPSE SNOMED Code(s): 877425315 Comment: The patient's episode yesterday was similar to the events she had in the hospital where her BP was noted to be quite low. She had been doing very well at home prior to yesterday's event. She had no pain prior to the episode. After she began to feel faint she was walked to a nearby bench and sat down and remained in a seated position until EMS arrived. Her thought she was "out of it" for about 10-15min. I suspect the prolonged period of time of being "out of it" is likely because she was in an upright position and poorly perfusing her brain. It is not clear however why she passed out. Orthostatic vital signs getting done currently. Echo results pending. Seizure is possible but seems much less likely as she has no reason to be having seizures and had no shaking. Will try to get a holter monitor upon discharge. (2) HTN (hypertension) Current Visit: No Status: Chronic Code(s): I10 - ESSENTIAL (PRIMARY) HYPERTENSION SNOMED Code(s): 03920540 Comment: BP is under good control. No hypotension here. Continue home medication regimen. (3) Status post total knee replacement Current Visit: Yes Status: Acute Code(s): Z96.659 - PRESENCE OF UNSPECIFIED ARTIFICIAL KNEE JOINT SNOMED Code(s): 3061410134161 Comment: Doing well with PT. Check for R LE DVT as leg is swollen. (4) HLD (hyperlipidemia) Current Visit: Yes Status: Chronic Code(s): E78.5 - HYPERLIPIDEMIA, UNSPECIFIED SNOMED Code(s): 87132285 Comment: Continue statin. (5) DVT prophylaxis Current Visit: Yes Status: Acute Code(s): CZR6078 - SNOMED Code(s): 080638713 Comment: Lovenox bridge to coumadin (6) Full code status Current Visit: Yes Status: Acute Code(s): Z78.9 - OTHER SPECIFIED HEALTH STATUS SNOMED Code(s): 622471653
[2016-08-02] MEDS: Enoxaparin(*) 80 MG/0.8 ML SYR SUBCUT SCH (17:48)
--- NOTE | 2016-08-02 19:35 | RAD ---
Indication: Right leg edema. Duplex Doppler sonography of the deep venous system of the right lower extremity deep venous system was performed. Bilaterally the common femoral veins appear patent and compressible. Right proximal greater saphenous vein, proximal deep femoral vein, femoral vein, popliteal vein, posterior tibial veins and peroneal veins appear patent and compressible. Likely popliteal cyst is noted in the popliteal fossa with complex fluid measuring 6.4 x 1.9 x 3.6 cm. IMPRESSION: NO EVIDENCE OF DEEP VENOUS THROMBOSIS IS IDENTIFIED.
[2016-08-02] MEDS: ALPRAZolam TAB* 0.5 MG PO PRN (21:57)
[2016-08-03] MEDS: Enoxaparin(*) 80 MG/0.8 ML SYR SUBCUT SCH (04:59)
[2016-08-03] MEDS: Multivitamins/Minerals TAB PO SCH (08:57)
[2016-08-03] MEDS: NIFEdipine ER TAB* 60 MG PO SCH (08:58)
[2016-08-03] MEDS: Lisinopril TAB* 5 MG PO SCH (08:58)
[2016-08-03] MEDS: Atorvastatin* 10 MG TAB PO SCH (08:59)
[2016-08-03] MEDS: Raloxifene (NF) 60 MG TAB PO SCH (09:47)
[2016-08-03] MEDS: traMADol TAB* 50 MG PO PRN (12:27)
--- NOTE | 2016-08-03 13:25 | PN ---
Subjective Date of Service: 08/03/16 Interval History: Pt is feeling well. She states she has been walking around the floor without any symptoms of lightheadedness or dizziness. She states that she is just worried about having an episode while in a not safe situation (ie not at home). No CP or SOB. Objective Active Medications: Alprazolam (Xanax Tab*) 0.5 mg PO BEDTIME PRN PRN Reason: SLEEP Last Admin: 08/02/16 21:57 Dose: 0.5 mg Atorvastatin Calcium (Lipitor*) 10 mg PO DAILY [facility] Last Admin: 08/03/16 08:59 Dose: 10 mg Docusate Sodium (Colace Cap*) 100 mg PO BID PRN PRN Reason: CONSTIPATION Enoxaparin Sodium (Lovenox(*)) 65 mg SUBCUT Q12H [facility] Last Admin: 08/03/16 04:59 Dose: 65 mg Lisinopril (Prinivil Tab*) 5 mg PO DAILY [facility] Last Admin: 08/03/16 08:58 Dose: 5 mg Multivitamins/Minerals (Theragran/Minerals Tab*) 1 tab PO DAILY [facility] Last Admin: 08/03/16 08:57 Dose: 1 tab Nifedipine (Procardia Xl Tab*) 60 mg PO DAILY [facility] Last Admin: 08/03/16 08:58 Dose: 60 mg Raloxifene HCl (Evista(Nf)) 60 mg PO DAILY [facility] PRN Reason: Protocol Last Admin: 08/03/16 09:47 Dose: Not Given Tramadol HCl (Ultram*) 50 mg PO Q6H PRN PRN Reason: PAIN Last Admin: 08/03/16 12:27 Dose: 50 mg Warfarin Sodium (Coumadin Tab(*)) 6 mg PO 1700 [facility] PRN Reason: Protocol Last Admin: 08/02/16 17:16 Dose: 6 mg Vital Signs 08/02/16 08/02/16 08/02/16 17:04 18:37 19:19 Temperature 98.5 F Pulse Rate 85 60 Respiratory 16 16 Rate Blood Pressure 148/72 114/75 (mmHg) O2 Sat by Pulse 100 Oximetry 08/02/16 08/02/16 08/02/16 21:57 23:29 23:57 Temperature 98.7 F Pulse Rate 74 Respiratory 16 16 16 Rate Blood Pressure 119/51 (mmHg) O2 Sat by Pulse 98 Oximetry 08/03/16 08/03/16 08/03/16 03:35 07:26 08:00 Temperature 98.4 F 98.6 F Pulse Rate 77 76 Respiratory 16 16 16 Rate Blood Pressure 142/50 127/51 (mmHg) O2 Sat by Pulse 98 97 Oximetry 08/03/16 12:27 Temperature Pulse Rate Respiratory 16 Rate Blood Pressure (mmHg) O2 Sat by Pulse Oximetry Oxygen Devices in Use Now: None Appearance: Elderly female sitting up in bed, NAD Eyes: No Scleral Icterus Ears/Nose/Mouth/Throat: Mucous Membranes Moist Respiratory: Symmetrical Chest Expansion and Respiratory Effort, Clear to Auscultation Cardiovascular: NL Sounds; No Murmurs; No JVD, RRR, No Edema Abdominal: NL Sounds; No Tenderness; No Distention Extremities: No Clubbing, Cyanosis Skin: No Rash or Ulcers, No Nodules or Sclerosis Neurological: Alert and Oriented x 3 Result Diagrams: 08/02/16 04:47 08/02/16 04:47 Assess/Plan/Problems-Billing Ms Ocampo is a 76 yo F who has a h/o recent (06/2016) R TKR, HTN, HLD and asthma who presented to the ER with c/o syncope while doing PT. - Patient Problems (1) Syncope Current Visit: Yes Status: Acute Code(s): R55 - SYNCOPE AND COLLAPSE SNOMED Code(s): 389404541 Comment: Likely syncope with prolonged confusion secondary to not being layed flat with the low BP. She will be d/gretta home with a holter monitor though she may benefit from an event monitor/loop recorder-this can be arranged by her PCP. No significant events on tele. (2) HTN (hypertension) Current Visit: Yes Status: Chronic Code(s): I10 - ESSENTIAL (PRIMARY) HYPERTENSION SNOMED Code(s): 54107050 Comment: BP is under good control. Continue home medication regimen. (3) Status post total knee replacement Current Visit: Yes Status: Acute Code(s): Z96.659 - PRESENCE OF UNSPECIFIED ARTIFICIAL KNEE JOINT SNOMED Code(s): 4384083361462 Comment: Doing well with PT. Doppler is negative. (4) HLD (hyperlipidemia) Current Visit: Yes Status: Chronic Code(s): E78.5 - HYPERLIPIDEMIA, UNSPECIFIED SNOMED Code(s): 33233578 Comment: Continue statin. (5) DVT prophylaxis Current Visit: Yes Status: Acute Code(s): XUU1385 - SNOMED Code(s): 513296201 Comment: Coumadin-follow up INR tomorrow. (6) Full code status Current Visit: Yes Status: Acute Code(s): Z78.9 - OTHER SPECIFIED HEALTH STATUS SNOMED Code(s): 939062120
[2016-08-03 13:38] VITALS: BP 107/53
[2016-08-03] MEDS ORDERED: Warfarin TAB(*) 4 MG PO SCH (17:00)
--- NOTE | 2016-08-04 03:17 | DS ---
DISCHARGE SUMMARY: DATE OF ADMISSION: 08/01/16 DATE OF DISCHARGE: 08/03/16 PRIMARY CARE PROVIDER: Dr. Cool. PRINCIPAL DIAGNOSIS: Probable syncope. SECONDARY DIAGNOSES: 1. Status post right total knee replacement, June 2016. 2. Hypertension. 3. Hyperlipidemia. DISCHARGE MEDICATIONS: 1. Tramadol 50 mg p.o. q.6 hours p.r.n. pain. 2. Coumadin 4 mg p.o. daily. 3. Evista 60 mg p.o. daily. 4. Lactase 1500 to 3000 units p.o. daily as needed for GI upset related to lactose. 5. Cuca 60 mg p.o. daily p.r.n. allergy symptoms. 6. Vitamin D 1000 units p.o. daily. 7. Calcium carbonate 500 mg p.o. daily p.r.n. indigestion. 8. Dymista 1 spray to both nostrils twice daily. 9. Melatonin 3 mg p.o. at bedtime p.r.n. sleep. 10. Fish oil 1000 mg p.o. daily. 11. Multivitamin 1 tab p.o. daily. 12. Procardia 60 mg p.o. daily. 13. Xanax 0.5 mg p.o. q.h.s. p.r.n. anxiety/insomnia. 14. Zocor 20 mg p.o. daily. 15. Lisinopril 5 mg p.o. daily. HOSPITAL COURSE: Ms. Ocampo is a 76-year-old female who presented to the emergency room after sustaining a syncopal episode at home. The patient was doing physical therapy in her garden at home when she suddenly began to feel faint. She was helped to a nearby bench in a seated position. It was felt by the physical therapist that she had lost consciousness; however, the patient states during the event, she feels as if she was somewhat aware of what was going on. She did describe seeing purple dots as an overlay over the scene in front of her. Her notes that she had may be 10 to 15 minutes of confusion following the event; though by the time EMS arrived, she was back to her baseline. The patient was admitted for evaluation of syncope. Orthostatic vital signs were obtained unfortunately after she had been hydrated, which were normal. She underwent a transthoracic echocardiogram that revealed normal EF and no evidence of diastolic dysfunction. The patient was found to have mild to moderate aortic stenosis. She did not have any significant events on telemetry. The patient will be set up to have a Holter monitor upon discharge; however, as these events are occurring so infrequently, it is possible that she may need a loop recorder and event monitor if she does not have any events while on the Holter monitor. The event monitor or loop recorder will need to be arranged by her primary care provider. At this point, it is felt that the patient is stable for discharge home. FOLLOWUP CONCERNS: The patient is being discharged home today, 08/03/16. ACTIVITY LEVEL: As tolerated. DIET: Regular. CONDITION ON DISCHARGE: Stable. TIME SPENT: 35 minutes were spent discharging this patient. CC: Dr. Cool* [id number]/CPS #: [id number] MTDD
--- NOTE | 2016-08-04 07:02 | ED ---
tayler Chand Timothy, scribed for Raymundo Meza MD on 08/01/16 at 1539 . Syncope/Near Syncope - HPI Summary HPI Summary: Sailaja Ocampo is a 76 yo female presenting to [facility] with purple spots in her eyes, followed by syncope and diaphoresis at 1245 lasting 10 minutes today. The episode occurred during physical therapy, in which she was using a walker. She states that she felt like she was dreaming, and did not fall as her physical therapist sat her down on a seat. Her is present in room. She is not in any current pain. She states she had a scintillating scotoma following her CT brain. She states she gets migraines without MARES's, and her Sx' s manifest visually. She denies any CP or SOB. She states she did not eat much this morning, and did not sleep particularly well last night. Her MHx includes heart murmur, migraine, asthma, GERD, breast CA 2000, mastectomy, arthritis, knee replacement, coumadin therapy, chemotherapy, radiation therapy. - History Of Current Complaint Chief Complaint: EDSyncope Time Seen by Provider: 08/01/16 15:28 Hx Obtained From: Patient Onset/Duration: Sudden Onset, Lasting Minutes - 10, Resolved Timing: Intermittent Episode Lasting - 10 mins Associated Signs And Symptoms: Diaphoresis, Other - visual change - purple spots - Allergies/Home Medications Allergies/Adverse Reactions: Allergies Allergy/AdvReac Type Severity Reaction Status Date / Time Shellfish Allergy Allergy Intermediate Difficulty Verified 07/11/16 09:26 Breathing Latex Allergy Mild Itching Verified 07/11/16 09:26 GRAPES Allergy Intermediate Difficulty Uncoded 07/11/16 09:26 Breathing KIWI Allergy Intermediate Difficulty Uncoded 07/11/16 09:26 Breathing PMH/Surg Hx/FS Hx/Imm Hx Endocrine/Hematology History: Denies: Hx Diabetes Cardiovascular History: Reports: Hx Hypertension Denies: Hx Pacemaker/ICD Respiratory History: Reports: Hx Asthma, Other Respiratory Problems/Disorders - RECENT NAGGING COUGH (STARTED TODAY) GI History: Reports: Hx Gastroesophageal Reflux Disease, Other GI Disorders - LACTOSE INTOLERANCE Musculoskeletal History: Reports: Hx Arthritis - HIPS, KNEES, SHOULDERS, Other Musculoskeletal History - 2005 LEFT TKR, OSTEOARTHRITIS RIGHT KNEE, EFFUSION Sensory History: Reports: Hx Contacts or Glasses Denies: Hx Cataracts, Hx Hearing Aid Opthamlomology History: Reports: Hx Contacts or Glasses Denies: Hx Cataracts Neurological History: Reports: Hx Migraine - AURA ONLY, NO HEADACHE, LAST AURA WAS 3 WEEKS AGO, Other Neuro Impairments/Disorders - 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 TUBAL LIGATION 1974 [facility]. LEFT TOTAL KNEE REPLACEMENT 2004 [place]. BILATERAL CATARACTS 2011 [facility] Hx Anesthesia Reactions: Yes - USUALLY EXPERIENCES WEAKNESS, DIZZINESS Infectious Disease History: No Infectious Disease History: Denies: Hx Clostridium Difficile, Hx Hepatitis, Hx Human Immunodeficiency Virus (HIV), History Other Infectious Disease, Traveled Outside the [place] in Last 30 Days - Family History Known Family History: Positive: Cardiac Disease, Hypertension Negative: Diabetes - Social History Alcohol Use: None Substance Use Type: Reports: None Hx Tobacco Use: No Smoking Status (MU): Never Smoked Tobacco Have You Smoked in the Last Year: No Review of Systems Positive: Skin Diaphoresis. Negative: Fever, Chills Eyes: Other - purple spots in vision Negative: Erythema ENT: Negative Negative: Sore Throat Cardiovascular: Negative Negative: Palpitations, Chest Pain Respiratory: Negative Negative: Shortness Of Breath, Cough Gastrointestinal: Negative Negative: Abdominal Pain, Vomiting, Nausea Genitourinary: Negative Negative: dysuria, hematuria Musculoskeletal: Negative Negative: Edema - legs Skin: Negative Negative: Rash Positive: Syncope Psychological: Normal All Other Systems Reviewed And Are Negative: Yes Physical Exam - Summary Physical Exam Summary: Constitutional: Well-developed, Well-nourished, Alert. (-) Distressed Skin: Warm, Dry HENT: Eyes: Conjunctiva normal Neck: Musculoskeletal ROM normal neck. (-) JVD, (-) Stridor, (-) Tracheal deviation Cardio: Rhythm regular, rate normal, Heart sounds normal; Intact distal pulses; The pedal pulses are 2+ and symmetric. Radial pulses are 2+ and symmetric. (-) Murmur Pulmonary/Chest wall: Effort normal. (-) Respiratory distress, (-) Wheezes, (-) Rales Abd: Soft. (-) Tenderness, (-) Distension, (-) Guarding, (-) Rebound Musculoskeletal: (-) Edema Lymph: (-) Cervical adenopathy Neuro: Alert, Oriented x3, Strength normal, Cranial nerves II-XII are grossly intact. (-) Dysmetria, (-) Nystagmus, (-) Ataxia by finger to nose testing, (-) Sensory deficit. Psych: Mood and affect Normal Triage Information Reviewed: Yes Vital Signs On Initial Exam: Initial Vitals Temp Pulse Resp BP Pulse Ox 97.7 F 58 16 117/63 93 08/01/16 14:25 08/01/16 14:25 08/01/16 14:25 08/01/16 14:25 08/01/16 14:25 Vital Signs Reviewed: Yes - Wallace Coma Scale Coma Scale Total: 15 Diagnostics - Vital Signs Vital Signs Temp Pulse Resp BP Pulse Ox 08/01/16 15:26 58 9 100 08/01/16 15:25 120/76 08/01/16 15:20 97.3 F 58 17 120/76 100 08/01/16 14:25 97.7 F 58 16 117/63 93 - Laboratory Result Diagrams: 08/01/16 15:34 08/01/16 15:34 Lab Statement: Any lab studies that have been ordered have been reviewed, and results considered in the medical decision making process. - CT Brain CT Interpretation: No Acute Changes - IMPRESSION: There is no intracranial mass or hemorrhage noted. CT Interpretation Completed By: Radiologist - EKG 1515 Cardiac Rate: Bradycardia - 58 BPM EKG Interpretation: Sinus bradycardia @ 58 BPM, no STEMI National Institutes Of Health - NIH Scale Level of Consciousness: Alert/Keenly Responsive Ask Patient the Month and His/Her Age: Both Correct Ask Pt to Open/Close Eyes and Professor Of Kinesiology/Release Non-Paretic Hand: Both Correctly Best Gaze (Only Horizontal Eye Movement): Normal Visual Field Testing: No Visual Loss Facial Paresis-Pt to Smile & Close Eyes or Grimace Symmetry: Normal/Symmetrical Motor Function - Right Arm: No Drift-Holds 10 Seconds Motor Function - Left Arm: No Drift-Holds 10 Seconds Motor Function - Right Leg: No Drift-Holds 10 Seconds Motor Function - Left Leg: No Drift-Holds 10 Seconds Limb Ataxia-Must be out of Proportion to Weakness Present: Absent Sensory (Use Pinprick to Test Arms/Legs/Trunk/Face): Normal Best Language (Describe Picture, Name Items): No Aphasia Dysarthria (Read Several Words): Normal Extinction and Inattention: No Abnormality Total Score: 0 Course/Dx Assessment/Plan: Sailaja Ocampo is a 76 yo female [facility] with purple spots in her vision, syncope and diaphoresis at 1245 lasting 10 minutes. Her medication list was reviewed this visit. Her Brain CT suggests no intracranial mass or hemorrhage. After clinical examination and review of her lab and imaging studies, as well as discussion with Dr. Thorne, she will be admitted to [facility] for observation with syncope and visual disturbance. - Diagnoses Provider Diagnoses: Syncope, Visual disturbance - Physician Notifications Discussed Care Of Patient With: 1751 - Dr. Thorne (hospitalist) - discussed Pt condition, agrees to admit Pt for observation. Instructed by Provider To: Admit As Inpatient Discharge - Discharge Plan Condition: Stable Disposition: ADMITTED TO [facility] Discharge Disposition Comment: observation for syncope and visual disturbance The documentation as recorded by the tayler alex Timothy accurately reflects the service I personally performed and the decisions made by me, Raymundo Meza MD.
== END 2016-08-03 15:13 | disposition home or self-care (01) | DRG 312 ==
LOC: ED 13:51 → MEDTELE 18:05 → OBSVTOIN 08-02 16:58
PROVIDERS: ADMIT Hospitalist; ATTEND Hospitalist
DX: R55 Syncope and collapse (principal); I35.0 Nonrheumatic aortic (valve) stenosis; I10 Essential (primary) hypertension; E78.5 Hyperlipidemia, unspecified; G43.909 Migraine, unspecified, not intractable, without status migrainosus; J45.909 Unspecified asthma, uncomplicated; K21.9 Gastro-esophageal reflux disease without esophagitis; M19.012 Primary osteoarthritis, left shoulder; M19.011 Primary osteoarthritis, right shoulder; M16.0 Bilateral primary osteoarthritis of hip; M81.0 Age-related osteoporosis without current pathological fracture; Z96.653 Presence of artificial knee joint, bilateral; M17.11 Unilateral primary osteoarthritis, right knee; G57.90 Unspecified mononeuropathy of unspecified lower limb; Z98.51 Tubal ligation status; Z98.42 Cataract extraction status, left eye; Z98.41 Cataract extraction status, right eye; Z82.49 Family history of ischemic heart disease and other diseases of the circulatory system; Z85.3 Personal history of malignant neoplasm of breast; Z91.040 Latex allergy status; Z91.013 Allergy to seafood; Z91.018 Allergy to other foods; Z83.3 Family history of diabetes mellitus; Z80.0 Family history of malignant neoplasm of digestive organs; Z79.01 Long term (current) use of anticoagulants
CPT/HCPCS: 36415; 70450; 80048; 80053; 81003; 81015; 83605; 83735; 84443; 84484; 85025; 85610; 85730; 87086; 93005; 93306; A9270-GY; G0378; G8978-GP-CI; G8979-GP-CI; G8980-GP-CI; J1650

== ENCOUNTER 2017-09-20 14:53 | Observation (INO) | payer MEDICARE, OTHER ==
[2017-09-20] MEDS ORDERED: NS 0.9% 1000 ML* 1,000 ML IV ONE (15:09)
--- NOTE | 2017-09-20 15:29 | RAD ---
Indication: Neurologic changes. Code coffey. Comparison: August 01, 2016 Technique: Noncontrast CT vertex of skull through foramen magnum. Report: Moderate prominence of the cerebral sulci and cerebellar fissures reflecting atrophy. Unremarkable ventricles and basal cisterns. Negative for coffey matter white matter obscuration, intra or extra-axial hemorrhage, or mass effect. No suspicious finding at the partially visualized orbits. Indolent thickening of the inner table of the frontal bone. No suspicious calvarial or skull base lesions evident. Clear partially visualized paranasal sinuses and mastoid air spaces. Negative for scalp hematoma. IMPRESSION: #. No CT findings of ischemic stroke or evidence for intracranial hemorrhage. #. Involutional change similar to the prior exam. Results discussed with Dr. Martins 09/20/2017 3:25 PM EDT
[2017-09-20] MEDS ORDERED: Aspirin TAB* 325 MG PO ONE (15:43)
[2017-09-20] MEDS ORDERED: Aspirin 81 mg CHEW TAB* 81 MG TAB.CHEW ONE (15:47)
[2017-09-20] MEDS ORDERED: Aspirin 81 mg CHEW TAB* 81 MG TAB.CHEW PO ONE (15:48)
[2017-09-20 15:53] LABS: ABS Basophils 0.1 10^3/ul (0-0.2); ABS Eosinophils 0.1 10^3/ul (0-0.6); ABS Lymphocytes 1.1 10^3/ul (1.0-4.8); ABS Monocytes 0.6 10^3/ul (0-0.8); ABS Neutrophils 3.9 10^3/ul (1.5-7.7); ABS Nucleated RBC 0 10^3/ul; Hematocrit 40 % (35-47); Hemoglobin 13.5 g/dl (12.0-16.0); Lymphocyte % 19.7 % (25-47); Mean Corpuscular HGB Conc 34 g/dl (31-36); Mean Corpuscular Hemoglobin 31 pg (27-31); Mean Corpuscular Volume 92 fL (80-97); Mean Platelet Volume 8.3 um3 (7.4-10.4); Nucleated Red Blood Cells % 0.2; Platelet Count 228 10^3/ul (150-450); Red Blood Count 4.33 10^6/ul (4.00-5.40); Red Cell Distribution Width 14 % (10.5-15); White Blood Count 5.8 10^3/ul (3.5-10.8)
[2017-09-20 16:01] LABS: INR 0.9 (0.77-1.02)
[2017-09-20 16:16] LABS: EGFR Non-African American 50.4 (>60)
[2017-09-20] MEDS ORDERED: Iodixanol* (CONTRAST) 320 MG/ML 100 ML SDV IV ONE (16:20)
--- NOTE | 2017-09-20 16:35 | RAD ---
INDICATION: Slurred speech and left arm tingling COMPARISON: Chest x-ray July 04, 2016 TECHNIQUE: Single AP portable view of the chest was obtained. FINDINGS: Image quality is compromised due to the relative inferiority of a portable chest x-ray. The heart and mediastinum exhibit normal size and contour. The lungs are grossly clear. There is no evidence of a large pleural effusion. Visualized bones are normal for the patient's age. IMPRESSION: No radiographic evidence for acute cardiopulmonary abnormality on this portable chest x-ray.
--- NOTE | 2017-09-20 17:15 | RAD ---
CPT II: CPT II Codes: 3100F INDICATION: Difficulty speech and left arm weakness COMPARISON: Noncontrast CT of the brain from the same day TECHNIQUE: A CT angiogram of the head and neck was performed with 80 cc of Visipaque 320. Contiguous axial sections were obtained from the thoracic inlet through the cabazon of Zaidi. Images were reconstructed in the sagittal, coronal planes and in a 3-D volume rendered format. The distal cervical internal carotid artery diameter is used as the denominater for stenosis measurement. CTA NECK: The common and internal carotid arteries are patent without hemodynamically significant stenosis. Right: The right common carotid artery measures 8 mm in diameter. There is coarse atherosclerotic calcification at the right carotid bulb narrowing the lumen to 4 mm in short axis diameter yielding approximately 50% degree stenosis. Left: Below the carotid bulb the left common carotid artery measures 7 mm in diameter. There is mixed attenuation atherosclerosis at the carotid bulb narrowing the lumen to 5 mm yielding 29% degree stenosis. The vertebral arteries are patent without gross abnormality. There is coarse calcification at the origin of the right brachiocephalic artery narrowing the lumen greater than 75% (series 4 image 11). CTA of the brain: The internal carotid, anterior and middle cerebral arteries appear are patent without high grade stenosis or occlusion. There is coarse atherosclerotic calcification of the bilateral petrous carotid arteries extending into the proximal most portions of the M1 MCA segment. The vertebral, basilar and posterior cerebral arteries appear patent without high grade stenosis or occlusion. The right posterior communicating artery appears to be absent. No focal luminal filling defect, aneurysm or vascular malformation is seen. NON-ARTERIAL FINDINGS: There is bilateral mixed attenuation heterogeneity of the thyroid lobes as well as enlargement, more severely affecting the right and left. IMPRESSION: 1. Coarse calcification of the carotid bulb causes 50% degree narrowing on the right and 29% degree narrowing the left. 2. There is coarse calcification at the origin of the right brachiocephalic artery narrowing the lumen at least 75%. 3. Enlargement and heterogeneity of the thyroid. Further characterization can be acquired on a nonemergent basis with ultrasound..
[2017-09-20] MEDS ORDERED: Melatonin 3 MG TAB PO PRN (18:24)
[2017-09-20] MEDS ORDERED: ALPRAZolam TAB* 0.25 MG PO PRN (18:24)
--- NOTE | 2017-09-20 19:12 | ED ---
Estefania Chand Edward, scribed for Lamin Martins MD on 09/20/17 at 1512 . Neurological HPI - HPI Summary HPI Summary: 77 y/o female presents to the ED s/p episode of losing ability to verbalize speech at around 13:45 today. Associated sx: weakness in L arm, numbness in bilateral UE. Pt was talking with her friend at the time. Pt is still not entirely back to normal currently. Sx not aggravated or alleviated by anything. Pt not on blood thinners. Denies MARES. Pt had 1 episode of scintillating scotoma yesterday. - History of Current Complaint Chief Complaint: EDNeurologicalDeficit Stated Complaint: LT ARM TINGLE/SLUR SPEECH Time Seen by Provider: 09/20/17 15:06 Hx Obtained From: Patient Onset/Duration: Sudden Onset, Resolved Timing: Intermittent Episodes Lasting: Neurological Deficit Location: Generalized Character: Impaired Speech Aggravating: Nothing Alleviating: Nothing Associated Signs and Symptoms: Positive: Weakness - L arm, Impaired Speech, Numbness. Negative: Headache - Additional Pertinent History Primary Care Physician: [id number] - Allergy/Home Medications Allergies/Adverse Reactions: Allergies Allergy/AdvReac Type Severity Reaction Status Date / Time shellfish derived Allergy Severe Difficulty Verified 09/12/17 09:11 Breathing grape Allergy Difficulty Verified 09/20/17 18:29 Breathing grape seed Allergy Difficulty Verified 09/20/17 18:29 Breathing kiwi Allergy Difficulty Verified 09/20/17 18:29 Breathing Home Medications: Home Medications ALPRAZolam TAB* [Xanax TAB*] 0.25 mg PO BEDTIME PRN 09/20/17 [History Confirmed 09/20/17] Calcium Carbonate [Tums Extra Strength 750] 750 mg PO DAILY PRN 09/20/17 [ History Confirmed 09/20/17] Ibandronate TAB(NF) [Boniva(NF)] 150 mg PO MONTHLY 09/20/17 [History Confirmed 09/20/17] PMH/Surg Hx/FS Hx/Imm Hx Previously Healthy: No Endocrine/Hematology History: Denies: Hx Diabetes Cardiovascular History: Reports: Hx Hypertension Denies: Hx Pacemaker/ICD Respiratory History: Reports: Hx Asthma, Other Respiratory Problems/Disorders - RECENT NAGGING COUGH (STARTED TODAY) GI History: Reports: Hx Gastroesophageal Reflux Disease, Other GI Disorders - LACTOSE INTOLERANCE History: Denies: Hx Renal Disease Musculoskeletal History: Reports: Hx Arthritis - HIPS, KNEES, SHOULDERS, Hx Osteoporosis, Hx Scoliosis, Other Musculoskeletal History - 2005 LEFT TKR, OSTEOARTHRITIS RIGHT KNEE, EFFUSION Sensory History: Reports: Hx Contacts or Glasses Denies: Hx Cataracts, Hx Hearing Aid Opthamlomology History: Reports: Hx Contacts or Glasses Denies: Hx Cataracts Neurological History: Reports: Hx Migraine - AURA ONLY, NO HEADACHE, LAST AURA WAS 3 WEEKS AGO Denies: Hx Headaches, Other Neuro Impairments/Disorders Psychiatric History: Denies: Hx Panic Disorder - Cancer History Cancer Type, Location and Year: BREAST Hx Chemotherapy: Yes - 1999 RIGHT BREAST CA Hx Radiation Therapy: Yes - BREAST - Surgical History Surgery Procedure, Year, and Place: PARTIAL SEGMENTAL MASTECTOMY RIGHT BREAST 2011 [facility] [place],. TUBAL LIGATION 1974 [place]. LEFT TOTAL KNEE REPLACEMENT 2004 [place]. BILATERAL CATARACTS 2011 [facility] [place]. RIGHT TOTAL KNEE JUNE 2016 Hx Anesthesia Reactions: Yes - USUALLY EXPERIENCES WEAKNESS, DIZZINESS Infectious Disease History: No Infectious Disease History: Denies: Hx Clostridium Difficile, Hx Hepatitis, Hx Human Immunodeficiency Virus (HIV), History Other Infectious Disease, Traveled Outside the [place] in Last 30 Days - Family History Known Family History: Positive: Cardiac Disease, Hypertension Negative: Diabetes - Social History Alcohol Use: None Hx Substance Use: No Substance Use Type: Reports: None Hx Tobacco Use: No Smoking Status (MU): Never Smoked Tobacco Have You Smoked in the Last Year: No Review of Systems Constitutional: Negative Eyes: Negative ENT: Negative Cardiovascular: Negative Respiratory: Negative Gastrointestinal: Negative Genitourinary: Negative Musculoskeletal: Negative Skin: Negative Positive: Weakness, Numbness, Slurred Speech. Negative: Headache Psychological: Normal All Other Systems Reviewed And Are Negative: Yes Physical Exam Triage Information Reviewed: Yes Vital Signs On Initial Exam: Initial Vitals Temp BP 97.3 F 153/102 09/20/17 15:00 09/20/17 15:00 Vital Signs Reviewed: Yes Appearance: Positive: Well-Appearing, No Pain Distress Skin: Positive: Warm, Skin Color Reflects Adequate Perfusion, Dry Head/Face: Positive: Normal Head/Face Inspection Eyes: Positive: EOMI, BRAYAN ENT: Positive: Normal ENT inspection Neck: Positive: Supple, Nontender Respiratory/Lung Sounds: Positive: Clear to Auscultation, Breath Sounds Present Cardiovascular: Positive: RRR Abdomen Description: Positive: Nontender, Soft Bowel Sounds: Positive: Present Musculoskeletal: Positive: Normal, Strength/ROM Intact Neurological: Positive: Sensory/Motor Intact, Alert, Oriented to Person Place, Time Psychiatric: Positive: Affect/Mood Appropriate Diagnostics - Vital Signs Vital Signs Temp BP 09/20/17 15:00 97.3 F 153/102 - Laboratory Lab Results: Lab Results 09/20/17 09/20/17 09/20/17 Range/Units 15:46 15:46 15:46 WBC 5.8 (3.5-10.8) 10^3/ul RBC 4.33 (4.00-5.40) 10^6/ul Hgb 13.5 (12.0-16.0) g/dl Hct 40 (35-47) % MCV 92 (80-97) fL MCH 31 (27-31) pg MCHC 34 (31-36) g/dl RDW 14 (10.5-15) % Plt Count 228 (150-450) 10^3/ul MPV 8.3 (7.4-10.4) um3 Neut % (Auto) 67.1 (38-83) % Lymph % (Auto) 19.7 L (25-47) % Hays % (Auto) 9.9 H (0-7) % Eos % (Auto) 2.0 (0-6) % Baso % (Auto) 1.3 (0-2) % Absolute Neuts (auto) 3.9 (1.5-7.7) 10^3/ul Absolute Lymphs (auto) 1.1 (1.0-4.8) 10^3/ul Absolute Monos (auto) 0.6 (0-0.8) 10^3/ul Absolute Eos (auto) 0.1 (0-0.6) 10^3/ul Absolute Basos (auto) 0.1 (0-0.2) 10^3/ul Absolute Nucleated RBC 0 10^3/ul Nucleated RBC % 0.2 INR (Anticoag Therapy) 0.90 (0.77-1.02) APTT 29.6 (26.0-36.3) seconds Sodium 140 (135-145) mmol/L Potassium 3.9 (3.5-5.0) mmol/L Chloride 105 (101-111) mmol/L Carbon Dioxide 27 (22-32) mmol/L Anion Gap 8 (2-11) mmol/L BUN 27 H (6-24) mg/dL Creatinine 1.06 H (0.51-0.95) mg/dL Est GFR ( Amer) 61.0 (>60) Est GFR (Non-Af Amer) 50.4 (>60) BUN/Creatinine Ratio 25.5 H (8-20) Glucose 102 H (70-100) mg/dL Lactic Acid (0.5-2.0) mmol/L Calcium 9.6 (8.6-10.3) mg/dL Total Bilirubin 0.50 (0.2-1.0) mg/dL AST 17 (13-39) U/L ALT 13 (7-52) U/L Alkaline Phosphatase 42 (34-104) U/L Troponin I 0.00 (<0.04) ng/mL Total Protein 6.7 (6.4-8.9) g/dL Albumin 4.0 (3.2-5.2) g/dL Globulin 2.7 (2-4) g/dL Albumin/Globulin Ratio 1.5 (1-3) Triglycerides 117 mg/dL Cholesterol 194 mg/dL LDL Cholesterol 98 mg/dL HDL Cholesterol 72.2 mg/dL Blood Type Antibody Screen 09/20/17 09/20/17 Range/Units 15:46 15:46 WBC (3.5-10.8) 10^3/ul RBC (4.00-5.40) 10^6/ul Hgb (12.0-16.0) g/dl Hct (35-47) % MCV (80-97) fL MCH (27-31) pg MCHC (31-36) g/dl RDW (10.5-15) % Plt Count (150-450) 10^3/ul MPV (7.4-10.4) um3 Neut % (Auto) (38-83) % Lymph % (Auto) (25-47) % Hays % (Auto) (0-7) % Eos % (Auto) (0-6) % Baso % (Auto) (0-2) % Absolute Neuts (auto) (1.5-7.7) 10^3/ul Absolute Lymphs (auto) (1.0-4.8) 10^3/ul Absolute Monos (auto) (0-0.8) 10^3/ul Absolute Eos (auto) (0-0.6) 10^3/ul Absolute Basos (auto) (0-0.2) 10^3/ul Absolute Nucleated RBC 10^3/ul Nucleated RBC % INR (Anticoag Therapy) (0.77-1.02) APTT (26.0-36.3) seconds Sodium (135-145) mmol/L Potassium (3.5-5.0) mmol/L Chloride (101-111) mmol/L Carbon Dioxide (22-32) mmol/L Anion Gap (2-11) mmol/L BUN (6-24) mg/dL Creatinine (0.51-0.95) mg/dL Est GFR ( Amer) (>60) Est GFR (Non-Af Amer) (>60) BUN/Creatinine Ratio (8-20) Glucose (70-100) mg/dL Lactic Acid 0.8 (0.5-2.0) mmol/L Calcium (8.6-10.3) mg/dL Total Bilirubin (0.2-1.0) mg/dL AST (13-39) U/L ALT (7-52) U/L Alkaline Phosphatase (34-104) U/L Troponin I (<0.04) ng/mL Total Protein (6.4-8.9) g/dL Albumin (3.2-5.2) g/dL Globulin (2-4) g/dL Albumin/Globulin Ratio (1-3) Triglycerides mg/dL Cholesterol mg/dL LDL Cholesterol mg/dL HDL Cholesterol mg/dL Blood Type O Positive Antibody Screen Negative Result Diagrams: 09/20/17 15:46 09/20/17 15:46 Lab Statement: Any lab studies that have been ordered have been reviewed, and results considered in the medical decision making process. - Radiology CXR Xray Interpretation: No Acute Changes - No radiographic evidence for acute cardiopulmonary abnormality on this portable chest x-ray. Radiology Interpretation Completed By: Radiologist - CT BRAIN CT CT Interpretation: No Acute Changes - #. No CT findings of ischemic stroke or evidence for intracranial hemorrhage. #. Involutional change similar to the prior exam. Results discussed with Dr. Martins 09/20/2017 3:[address] Interpretation Completed By: Radiologist HEAD CTA CT Interpretation Completed By: Radiologist - 1. Coarse calcification of the carotid bulb causes 50% degree narrowing on the right and 29% degree narrowing the left. 2. There is coarse calcification at the origin of the right brachiocephalic artery narrowing the lumen at least 75%. 3. Enlargement and heterogeneity of the thyroid. Further characterization can be acquired on a nonemergent basis with ultrasound. - EKG 1 EKG Interpretation: 15:23 - NSR [address] No ectopy. NIH Scale - NIH Scale Level of Consciousness: Alert/Keenly Responsive Ask Patient the Month and His/Her Age: Both Correct Ask Pt to Open/Close Eyes and Utilization Review Nurse/Release Non-Paretic Hand: Both Correctly Best Gaze (Only Horizontal Eye Movement): Normal Visual Field Testing: No Visual Loss Facial Paresis-Pt to Smile & Close Eyes or Grimace Symmetry: Normal/Symmetrical Motor Function - Right Arm: No Drift-Holds 10 Seconds Motor Function - Left Arm: No Drift-Holds 10 Seconds Motor Function - Right Leg: No Drift-Holds 10 Seconds Motor Function - Left Leg: No Drift-Holds 10 Seconds Limb Ataxia-Must be out of Proportion to Weakness Present: Absent Sensory (Use Pinprick to Test Arms/Legs/Trunk/Face): Normal Best Language (Describe Picture, Name Items): No Aphasia Dysarthria (Read Several Words): Normal Extinction and Inattention: No Abnormality Total Score: 0 Course/Dx - Course Course Of Treatment: Nikunj coffey called 15:15. Dr Huang saw the patient in the ED. No tpa. Admit Hospitalist. Critical care time less than 30 minutes. - Diagnoses Provider Diagnoses: TIA (transient ischemic attack) - Physician Notifications Discussed Care Of Patient With: Ponce Vincent Time Discussed With Above Provider: 17:21 Instructed by Provider To: Admit As Inpatient Discharge - Sign-Out/Discharge Documenting (check all that apply): Discharge/Admit/Transfer - Discharge Plan Condition: Stable Disposition: ADMITTED TO [facility] - Billing Disposition and Condition Condition: STABLE Disposition: Admitted to [facility] The documentation as recorded by the Estefania alex Edward accurately reflects the service I personally performed and the decisions made by , Lamin Martins MD.
[2017-09-20] MEDS ORDERED: Atorvastatin* 10 MG TAB PO SCH (21:00)
[2017-09-20] MEDS ORDERED: Lisinopril TAB* 5 MG PO SCH (21:00)
[2017-09-20] MEDS ORDERED: NIFEdipine ER TAB* 60 MG PO SCH (21:00)
--- NOTE | 2017-09-20 21:27 | CONS ---
NEUROLOGY CONSULTATION: DATE OF CONSULT: 09/20/17 LOCATION: She is in the emergency room, bed 14. REFERRING PHYSICIAN: Dr. Martins. PRIMARY CARE PROVIDER: Dr. Cool. CHIEF COMPLAINT: Numbness, difficulty with word-finding. HISTORY OF PRESENT ILLNESS: Sailaja Ocampo is a 77-year-old right-handed woman who was at lunch with a friend at 1:45 when she suddenly did not feel right. She felt like it was a labor to get words out. She said her friend did not notice any problems and she felt it was very subtle and her friend would not notice anything. She felt somewhat emotionally detached from her surroundings. Around the same time, she noted a sense of tingling in her hands and feet. She did not notice any numbness on the face. She drove herself home and did not notice any difficulty with control of her arms or difficulty walking. There was no change in vision or headaches. She got home and talked to her and they called her daughter, who in the healthcare field, and decided to present to the emergency room. In the emergency room, she is asymptomatic. Symptoms resolved before she arrived. She currently feels well. She said that she had a scintillating scotoma last night, which she gets several times a month on average. She has had them for decades and she does not get migraines with them, however. She has never had sensory symptoms associated with scintillating scotomas and she has not had a scotoma today. She has otherwise felt well today and did not feel ill earlier. There has been no recent change in medications. There is no prior history of cerebrovascular disease or epilepsy. She has not had any recent surgeries, but had knee replacement surgery over a year ago. She has a history of hypertension, dyslipidemia, and anxiety disorder. She has a history of [id number] aortic stenosis by echocardiography a year ago. She was being evaluated in the hospital for presyncopal episodes. She had evidence of urinary tract infection at that time as well. She has had chronic right knee pain since some time postoperatively. She is seen in the pain management center. MEDICATIONS: At home, consist of: 1. Vitamin D 1000 units p.o. daily. 2. Prinivil 5 mg p.o. daily. 3. Melatonin 3 mg p.o. q.h.s. 4. Nifedipine XL 60 mg p.o. daily. 5. Simvastatin 20 mg p.o. daily. ALLERGIES: She has some food allergies, but no drug allergies. FAMILY HISTORY: Noncontributory. SOCIAL HISTORY: She lives at home with her . She does not smoke. REVIEW OF SYSTEMS: She does not take aspirin on a regular basis. She denies any history of heart disease or diabetes. She has never been a smoker. She has occasional insomnia. She takes alprazolam for that about once a week or less. Had some perioperative presyncopal episodes and then a month or 2 later some other presyncopal episodes. No recent syncope, headaches, or falls. No history of head trauma or recent extremity trauma. No history of gastrointestinal bleeding. No recent fevers or infections. No recent weight loss. PHYSICAL EXAM: She is well nourished and well hydrated. Blood pressure on the monitor 175/86, heart rate is about 80 and seems to be in sinus rhythm. Respiratory rate is 16. Oxygen saturation is 99% on room air. Temperature 97.2. Head is atraumatic. Neck is supple. Skin is warm and dry. Heart is in a regular rate and rhythm with a grade 2-3/6 systolic murmur loudest at the right upper sternal border. There appears to be transmission into the carotids rather than bruits. There are no supraclavicular bruits. Lungs are clear anterolaterally. Neurological Exam: Pupils react equally from 3 to 2 mm. There is no ptosis. Funduscopic exam is unremarkable bilaterally. Visual acuna are full to confrontation. Double simultaneous stimulation is negative to visual confrontation. Facial musculature is suggestive of mild flattening of the left nasolabial fold. Facial sensation is reported as diminished to light touch and pin and temperature on the right side relative to the left. Palate and tongue appear normal, tongue protrudes in the midline, palate rises symmetrically. There is no dysarthria. Hearing is intact bilaterally. Motor exam reveals normal muscle tone and strength proximally and distally in the upper and lower extremities. There is no drift of any limb. Sensory exam notable for a subjective asymmetry to light touch and pin being more on the right than the left. Vibration and proprioception are symmetrical in the feet bilaterally. [id number] maneuver is normal. There is no rest or action tremor. Reflexes are symmetric in upper and lower extremities. Plantar responses are flexor bilaterally. Language is fluent. Confrontation and naming is intact. She is a good historian with intact memory. NIH stroke score is on my determination 2, 1 for asymmetric sensory, 1 for minor facial asymmetry. DIAGNOSTIC STUDIES/LAB DATA: So far includes a CT of the brain, which I reviewed the images of and which looks normal for age. There is no evidence of early infarction or hemorrhage. There is no evidence of prior infarction. The interpretation is moderate prominence of cerebral sulci and cerebellar fissures reflecting atrophy. Blood tests so far from today's visit include a normal CBC, normal INR at 0.90 and PTT at 29.6, chemistry profile is not back yet. Looking at older records, Holter monitor report from 08/03/16 revealed predominant sinus rhythm, rare premature atrial contractions, rare PVCs. No sustained arrhythmias. Symptoms of "breathing " corresponded to normal rhythm. Echocardiogram, 08/01/16, interpreted as mild concentric left ventricular hypertrophy, ejection fraction 55% to 60%, moderately dilated left atrium, mild- to- moderate aortic stenosis. IMPRESSION AND PLAN: Impression is that of possibly mild transient ischemic attack or mild stroke. She has some sensory asymmetry and some mild facial asymmetry. However, her symptoms were pretty nonspecific and not noticed by a friend who was with her. Her initial symptoms of sense of numbness in both hands and feet does not suggest a focal cerebrovascular lesion. Her CAT scan is normal. I recommend at this point giving her aspirin [address] angiogram. I think she should be admitted to telemetry and have an MRI scan of the brain without contrast done. I would recommend permissive hypertension for now and continuing her statin. She probably should have an echocardiogram as well given her history of his aortic stenosis a year ago. I have discussed my impression with the patient and her and not yet discussed admission. Await for the CT angiogram to come back first and then discuss with Dr. Martins and possibly the hospitalist. If she has high-grade right carotid stenosis, then we may need to consider the possibility of transfer to a center with vascular surgery capability. Further recommendations depend upon results of the studies and her hospital course. [id number]/[facility] #: [id number] ALEXA
[2017-09-20] MEDS: Azelastine/Fluticasone NAS(NF) BTL BOTH NARES SCH (21:30)
[2017-09-20] MEDS: Heparin VIAL(*) 5000 UNITS/ML VIAL (FIVE THOUSAND) SUBCUT SCH (21:31)
[2017-09-20 22:02] LABS: Urine Appearance Clear; Urine Blood Negative (Negative); Urine Color Straw; Urine Ketones Negative (Negative); Urine Protein Negative (Negative); Urine Red Blood Cell Trace(0-2/hpf) (Absent); Urine Specific Gravity 1.038 (1.010-1.030); Urine Urobilinogen Negative (Negative); Urine White Blood Cell Trace(0-5/hpf) (Absent)
--- NOTE | 2017-09-20 23:31 | HP ---
CC: Dr. Cool; Dr. Huang* HISTORY AND PHYSICAL: DATE OF ADMISSION: 09/20/17 TIME OF EVALUATION: 6 p.m. PRIMARY CARE PROVIDER: Dr. Cool. CONSULTING NEUROLOGIST: Dr. Huang. CHIEF COMPLAINT: "I could not speak." HISTORY OF PRESENT ILLNESS: Ms. Ocampo is a 77-year-old right-handed female with a past medical history of hypertension, hyperlipidemia, asthma, breast CA, osteoporosis who presented to the emergency room with complaints of difficulty speaking. The patient states that around 1:45 this afternoon, she was talking to a friend and she had difficulty speaking that she describes as difficulty forming words as if her tongue were heavy. She states this was followed by tingling sensation in both hands and both feet. She states that she got concerned enough that she decided to go home. She states that she was able to drive very carefully and when she went home her describes that he could see she was concerned, but he did not notice any other symptoms. He states that her face was symmetric and he could not notice anything different with her speech. When she arrived to the emergency room, she was found to have no arm drift, symmetric smile, but her left maintenance department technician was slightly weaker than the right and this asymmetric maintenance department technician was the only focal finding on her exam. By the time of my evaluation, the patient states that she is back to normal. She states that her speech is back to normal. Sensation is intact and she feels that both hands are equally strong. She denies headache, nausea, vomiting, chest pain, palpitations, shortness of breath, urinary complaints. PAST MEDICAL HISTORY: 1. Hypertension. 2. Asthma. 3. Hyperlipidemia. 4. Breast CA, status post segmental mastectomy on the right. 5. Osteoporosis. 6. Status post bilateral knee replacement. MEDICATION LIST: As follows: 1. Alprazolam 0.25 mg p.o. at bedtime as needed for insomnia. 2. Azelastine/fluticasone 1 spray to both nares twice a day. 3. Calcium carbonate 750 mg p.o. daily as needed for indigestion. 4. Cholecalciferol 1000 units p.o. daily. 5. Fexofenadine 60 mg p.o. daily. 6. Boniva 150 mg p.o. monthly. 7. Lactaid 1500 to 3000 units p.o. daily as needed for indigestion. 8. Lisinopril 5 mg p.o. daily. 9. Melatonin 3 mg p.o. at bedtime as needed for insomnia. 10. Multivitamin 1 tablet p.o. daily. 11. Nifedipine ER 60 mg p.o. daily. 12. Fish oil 1000 mg p.o. q.a.m. 13. Simvastatin 20 mg p.o. daily. 14. Turmeric root 500 mg p.o. daily. ALLERGIES: No known drug allergies, but the patient has difficulty breathing with SHELLFISH, GRAPES and KIWI. FAMILY HISTORY: The patient's father passed in his 70s from myocardial infarction. He was a smoker. The patient's mother of esophageal cancer. SOCIAL HISTORY: There is no history of tobacco, alcohol, or drug use. Surrogate decision maker is her , Moo Ocampo, phone number is [phone]. REVIEW OF SYSTEMS: A 14-point review of systems was performed and all the pertinent negatives and positive findings are in the HPI. PHYSICAL EXAMINATION GENERAL: The patient is a pleasant elderly lady, lying in the ED stretcher, not in acute distress. VITAL SIGNS: Temperature 97.2, heart rate is 61, respiratory rate is 17, oxygen saturation is 96% on room air, blood pressure is 105/81. HEENT: Pupils are equal. Moist mucous membranes. CHEST: Breath sounds present bilaterally with no added sounds. CVS: Normal S1, S2. Regular rate and rhythm with a systolic murmur. ABDOMEN: Soft. Bowel sounds are present. EXTREMITIES: No edema. NEURO: She is alert and oriented x3. Face is symmetric, but I question if there is some flattening of the left nasolabial fold. She can move all 4 extremities and the only difference is that she has a slightly weaker maintenance department technician on her left hands, but other than that her neuro exam is normal. LABORATORY AND IMAGING DATA: The patient had a CBC that showed WBC of 5.8, hemoglobin of 13.5, hematocrit of 40, platelets of 228 with 67% neutrophils. INR is 0.9. PTT is 29.6. Chemistry showed a sodium of 140, potassium 3.9, chloride of 105, bicarb of 27, BUN of 27, creatinine of 1.06, glucose of 102. Lactic acid is 0.8. Calcium of 9.6. LFTs are normal. Lipid profile showed triglycerides of 117, total cholesterol of 194, LDL of 98, HDL of 72. CT of the brain without contrast showed no findings of ischemic stroke or evidence for intracranial hemorrhage. Only involutional changes similar to her prior exam from July 2016. Chest x-ray showed no radiographic evidence for acute pulmonary abnormality. CTA of the head and neck showed coarse calcification of the carotid bulb that causes 50% degree narrowing on the right and 29% degree narrowing on the left. There is coarse calcification at the origin of the right brachiocephalic artery , narrowing the lumen at least 75%. Also incidental finding of enlargement and heterogeneity of the thyroid that an be further characterized with ultrasound. EKG done on 09/20/17 at 1523 showed sinus rhythm at 81 beats per minute with no ST- T changes, no significant change when compared to her prior EKG from July 2016. The patient's last transthoracic echocardiogram was done in July 2016. At that time, she had an ejection fraction of 55 to 60% with mild to moderate aortic stenosis, mean gradient of 18, and area of 1.3 cm2, there was mitral annular calcification with trace of the mitral regurgitation, trace tricuspid regurgitation, no pulmonary hypertension. ASSESSMENT AND PLAN: Ms. Ocampo is a 77-year-old lady with a past medical history of hypertension, hyperlipidemia, asthma, breast cancer status post segmental mastectomy, osteoporosis who presented to the emergency room with complaints of change in her speech, tingling and left hand weakness. 1. Transient ischemic attack versus cerebrovascular accident. The patient is right handed. The patient's symptoms are a little puzzling with her speech change and only slight decrease in her left hand maintenance department technician, but she does have risk factors for cerebrovascular disease. She will be admitted as observation to telemetry floor. We are going to watch for any arrhythmias. She will have an MRI of the brain and echocardiogram. She will be monitored with neurological checks and we are going to continue her statin. I discussed with consulting neurologist (Dr. Huang) if we should add a second antiplatelet agent to her regimen and he wants to wait for further workup. The patient was on no antiplatelet agent prior to this admission. So, his recommendation at this time is to start aspirin and depending on her workup tomorrow, to then add Plavix. The patient will be seen by OT and PT, but as described her deficits are much improved at this time. 2. Hypertension. It is controlled at this time. I am going to continue her lisinopril and nifedipine with holding parameters, so we are going to hold them if her SBP is less than 120 to maintain enough blood pressure for cerebral perfusion. 3. Hyperlipidemia. We will continue simvastatin. 4. DVT prophylaxis. The patient has a score of 3 on the DVT Prophylaxis Assessment Guide and she will be started on subcutaneous heparin. 5. Code status is full. TIME SPENT: Approximately 55 minutes were spent with the patient and interview, medical records review, physical examination to complete this admission; more than half of this time was spent [id number] with the patient in coordination of care. [id number]/[facility] #: [id number] ALEXA
[2017-09-21] MEDS: Heparin VIAL(*) 5000 UNITS/ML VIAL (FIVE THOUSAND) SUBCUT SCH ×2 (05:12→14:41)
[2017-09-21] MEDS ORDERED: Lactase Enzyme (NF) 3,000 UNIT TAB PO PRN (08:33)
[2017-09-21] MEDS ORDERED: LACTASE PO PRN (08:44)
[2017-09-21] MEDS ORDERED: Aspirin EC TAB* 81 MG TAB.EC PO SCH (09:00)
[2017-09-21] MEDS ORDERED: Multivitamins/Minerals TAB PO SCH (09:00)
[2017-09-21] MEDS ORDERED: Cholecalciferol TAB* 1000 UNITS PO SCH (09:00)
[2017-09-21] MEDS: Azelastine/Fluticasone NAS(NF) BTL BOTH NARES SCH (09:40)
--- NOTE | 2017-09-21 11:07 | RAD ---
HISTORY: TIA vs CVA COMPARISONS: CTA dated September 20, 2017 TECHNIQUE: The following sequences were obtained of the head: Sagittal T1-weighted images, axial T2-weighted images, axial FLAIR images, axial susceptibility weighted images, axial T1-weighted images. Additionally, axial diffusion-weighted images were obtained with calculated apparent diffusion coefficients. FINDINGS: Evaluation somewhat limited by patient motion artifact. HEMORRHAGE/INFARCT: There is no hemorrhage or acute infarct. MASSES/SHIFT: There is no mass or shift. EXTRA-AXIAL SPACES/MENINGES: There are no extra-axial fluid collections. SULCI AND VENTRICLES: The sulci and ventricles are normal in size and position for the patient's stated age. CEREBRUM: There are no focal parenchymal abnormalities. BRAINSTEM: There are no focal parenchymal abnormalities. CEREBELLUM: There are no focal parenchymal abnormalities. The cerebellar tonsils are normal in size and position. SELLA: The sella is normal. PINEAL: The pineal region is clear. CP ANGLE/TEMPORAL BONES: The labyrinthine structures are grossly normal. VESSELS: Normal flow-voids are noted within the visualized vertebral vasculature. DIFFUSION ABNORMALITIES: There are no diffusion abnormalities. PARANASAL SINUSES/MASTOIDS: The paranasal sinuses are clear. ORBITS: The orbits are unremarkable. BONES AND SOFT TISSUE: No bone or soft tissue abnormalities are noted. OTHER: None IMPRESSION: UNREMARKABLE MRI OF THE BRAIN. NO RESTRICTED DIFFUSION TO SUGGEST ACUTE INFARCT.
[2017-09-21 12:33] VITALS: BP 134/59
--- NOTE | 2017-09-21 14:52 | ECHO ---
Patient: TOMMY RAYA [facility] Rec#: [id number] : 1940 Date: 09/21/2017 Age: 77y Height: 152.4 cm / 60.0 in Weight: 65.77 kg / 145.0 lbs Sex: F BSA: 1.63 Room#: [facility] Admit Date#: 09/20/2017 Type: Inpatient Referring: Hermelinda Trent MD Reading: Unruly Bateman MD Delivery Rep: Annabelle Canales RDCS CC: Javier Cool MD Transthoracic Echocardiogram Indication: TIA BP: 120/54 HR: 55 Rhythm: Bradycardia Findings History: HTN,HLD,breast cancer,anxiety,asthma,aortic stenosis. Technical Comments: The study quality is good. Completed at 1428. Left Ventricle: The left ventricular chamber size is normal. Septal wall hypertrophy is observed. The estimated ejection fraction is 55-60%. The assessment of diastolic function is non-diagnostic. Left Atrium: The left atrium is mildly dilated. Right Ventricle: The right ventricular cavity size is normal. The right ventricular global systolic function is normal. Right Atrium: The right atrium is mildly dilated. There is no patent foramen ovale visualized. There is no evidence of patent foramen ovale shunting. A patent foramen ovale is not demonstrated with color Doppler and agitated contrast. Aortic Valve: The aortic valve is trileaflet. The aortic valve leaflets are mildly thickened. Systolic excursion of the aortic valve cusps is reduced. There is mild aortic regurgitation. There is mild aortic stenosis. Equal velocities obtained with Standard and Pedoff probes. Mitral Valve: The mitral valve leaflets are mildly thickened. There is mild mitral regurgitation. There is no evidence of mitral stenosis. Tricuspid Valve: The tricuspid valve leaflets are normal. There is mild tricuspid regurgitation. There is evidence that pulmonary hypertension may be underestimated. There is no tricuspid stenosis. Pulmonic Valve: The pulmonic valve appears normal. There is no evidence of pulmonic regurgitation. There is no pulmonic stenosis. Pericardium: The pericardium appears normal. Aorta: There is mild dilatation of the ascending aorta. There is no dilatation of the aortic arch. There is no dilation of the aortic root. Pulmonary Artery: The main pulmonary artery appears normal. Venous: The inferior vena cava appears normal in size. There is a greater than 50% respiratory change in the inferior vena cava dimension. Contrast: Normal saline was used as contrast for the bubble study. Intravenous contrast was used to help determine presence of intracardiac shunting. Summary: There are changes noted when compared to the previous study done on 08/02/2016, MR and TR are mild now instead of trace then. is mild now instead of mild-moderate then. Dilated ascending aorta is new now. Conclusions The left ventricular chamber size is normal. The estimated ejection fraction is 55-60%. The left atrium is mildly dilated. The right atrium is mildly dilated. A patent foramen ovale is not demonstrated with color Doppler and agitated contrast. There is mild aortic regurgitation. There is mild aortic stenosis. Equal velocities obtained with Standard and Pedoff probes. There is mild mitral regurgitation. There is mild tricuspid regurgitation. There is mild dilatation of the ascending aorta. Measurements Name Value Normal Range RVIDd (AP) 2D 2.9 cm (0.9 - 2.6) RVDdMajor (2D) 3.3 cm (2.2 - 4.4) RAd ISD 4CH 5 cm (3.4 - 4.9) RA (A4C)W 2.7 cm (2.9 - 4.6) IVSd (2D) 1.1 cm (0.6 - 1) LVPWd (2D) 1 cm (0.6 - 1) LVIDd (2D) 4.2 cm (3.6 - 5.4) LVIDs (2D) 2.7 cm - LV FS (2D) 36 % (25 - 45) Aortic Annulus 2 cm (1.4 - 2.6) Ao root diameter (2D) 3 cm (2.1 - 3.5) Ascending Ao 3.6 cm (2.1 - 3.4) Aortic arch 2.4 cm (1.8 - 3.4) Descending Ao 0.7 cm - LA dimension (AP) 2D 3.9 cm (2.3 - 3.8) LAd ISD 4CH 4 cm (2.9 - 5.3) LA ISD 4CH W 4 cm (2.5 - 4.5) Name Value Normal Range LA ESV SP 4CH (A/L) 46 ml - LA ESV SP 2CH (A/L) 60 ml - LA ESV BP (A/L) 61 ml - LA ESV BP (A/L) index 37.38 ml/m2 - LA ESV SP 4CH (MOD) 42 ml - LA ESV SP 2CH (MOD) 55 ml - Name Value Normal Range MV E-wave Vmax 0.8 m/sec - MV deceleration time 242 msec - MV A-wave Vmax 1 m/sec - MV E:A ratio 0.85 ratio - LV septal e' Vmax 0.06 m/sec - LV lateral e' Vmax 0.08 m/sec - LV E:e' septal ratio 13.33 ratio - LV E:e' lateral ratio 10 ratio - Name Value Normal Range AV Vmax 2.5 m/sec - AV VTI 58.3 cm - AV peak gradient 24.17 mmHg - AV mean gradient 12.15 mmHg - LVOT diameter 2.3 cm - LVOT Vmax 1 m/sec - LVOT VTI 22.8 cm - LVOT peak gradient 3.92 mmHg - LVOT mean gradient 1.57 mmHg - SV LVOT 98 ml - CHANDNI (continuity Vmax) 1.8 cm2 - CHANDNI (continuity VTI) 1.8 cm2 - AR PHT 494 msec - AR peak gradient 65.96 mmHg - Name Value Normal Range MR Vmax 3.8 m/sec - MR VTI 107 cm - Name Value Normal Range TR Vmax 2.6 m/sec - TR peak gradient 26 mmHg - RAP 3 mmHg - RVSP 29 mmHg - IVC diameter 2.1 cm - Name Value Normal Range PV Vmax 0.7 m/sec - PV peak gradient 1.88 mmHg -
--- NOTE | 2017-09-21 17:43 | PN ---
Progress Note - Progress Note Date of Service: 09/21/17 SOAP: Neurology progress note Date of service: 09/21/17 Subjective: I saw and examined the patient around 10 am today. The patient remains asymptomatic. Objective: Vital Signs Temp Pulse Resp BP Pulse Ox 97.2 F 49 16 134/59 99 09/21/17 12:01 09/21/17 12:01 09/21/17 12:01 09/21/17 12:01 09/21/17 12:01 Home Medications Medication Instructions Recorded Confirmed Type Lisinopril TAB* [Prinivil TAB 5 5 mg PO DAILY 10/10/13 09/20/17 History MG*] Azelastine/Fluticasone DAVE(NF 1 spray BOTH NARES BID 07/03/16 09/20/17 History [Dymista(NF)] Fexofenadine (NF) [Cuca (NF)] 60 mg PO DAILY PRN 07/03/16 09/20/17 History Lactase Enzyme (NF) [Lactaid Fast 1,500 - 3,000 unit PO DAILY PRN 08/01/1609/20 History Act (NF)] Melatonin 3 mg PO QPM PRN 08/01/16 09/20/17 History Multivitamins/Minerals TAB* 1 tab PO DAILY 08/01/16 09/20/17 History [Theragran/minerals TAB*] NIFEdipine ER TAB* [Procardia Xl 60 mg PO DAILY 08/01/16 09/20/17 History TAB*] [place]-3 Fatty Acids (Nf) [Fish Oil 1,000 mg PO QAM 08/01/16 09/20/17 History (NF)] Cholecalciferol TAB* [Vitamin D 1,000 unit PO DAILY 09/12/17 09/20/17 History TAB*] Turmeric Root Extract [Turmeric] 500 mg PO DAILY 09/12/17 09/20/17 History ALPRAZolam TAB* [Xanax TAB*] 0.25 mg PO BEDTIME PRN 09/20/17 09/20/17 History Calcium Carbonate [Tums X-Str] 750 mg PO DAILY PRN 09/20/17 09/20/17 History Ibandronate TAB(NF) [Boniva(NF)] 150 mg PO MONTHLY 09/20/17 09/20/17 History Aspirin EC TAB* [Ecotrin EC Low 81 mg PO DAILY #30 tab.ec 09/21/17 Rx Dose 81 MG*] Simvastatin [Zocor] 40 mg PO BID WITH MEALS #30 tablet 09/21/17 Rx Laboratory Last Values WBC 5.8 10^3/ul (3.5-10.8) 09/20/17 15:46 RBC 4.33 10^6/ul (4.00-5.40) 09/20/17 15:46 Hgb 13.5 g/dl (12.0-16.0) 09/20/17 15:46 Hct 40 % (35-47) 09/20/17 15:46 MCV 92 fL (80-97) 09/20/17 15:46 MCH 31 pg (27-31) 09/20/17 15:46 MCHC 34 g/dl (31-36) 09/20/17 15:46 RDW 14 % (10.5-15) 09/20/17 15:46 Plt Count 228 10^3/ul (150-450) 09/20/17 15:46 MPV 8.3 um3 (7.4-10.4) 09/20/17 15:46 Neut % (Auto) 67.1 % (38-83) 09/20/17 15:46 Lymph % (Auto) 19.7 % (25-47) L 09/20/17 15:46 [place] % (Auto) 9.9 % (0-7) H 09/20/17 15:46 Eos % (Auto) 2.0 % (0-6) 09/20/17 15:46 Baso % (Auto) 1.3 % (0-2) 09/20/17 15:46 Absolute Neuts (auto) 3.9 10^3/ul (1.5-7.7) 09/20/17 15:46 Absolute Lymphs (auto) 1.1 10^3/ul (1.0-4.8) 09/20/17 15:46 Absolute Monos (auto) 0.6 10^3/ul (0-0.8) 09/20/17 15:46 Absolute Eos (auto) 0.1 10^3/ul (0-0.6) 09/20/17 15:46 Absolute Basos (auto) 0.1 10^3/ul (0-0.2) 09/20/17 15:46 Absolute Nucleated RBC 0 10^3/ul 09/20/17 15:46 Nucleated RBC % 0.2 09/20/17 15:46 INR (Anticoag Therapy) 0.90 (0.77-1.02) 09/20/17 15:46 APTT 29.6 seconds (26.0-36.3) 09/20/17 15:46 Sodium 140 mmol/L (135-145) 09/20/17 15:46 Potassium 3.9 mmol/L (3.5-5.0) 09/20/17 15:46 Chloride 105 mmol/L (101-111) 09/20/17 15:46 Carbon Dioxide 27 mmol/L (22-32) 09/20/17 15:46 Anion Gap 8 mmol/L (2-11) 09/20/17 15:46 BUN 27 mg/dL (6-24) H 09/20/17 15:46 Creatinine 1.06 mg/dL (0.51-0.95) H 09/20/17 15:46 Est GFR ( Amer) 61.0 (>60) 09/20/17 15:46 Est GFR (Non-Af Amer) 50.4 (>60) 09/20/17 15:46 BUN/Creatinine Ratio 25.5 (8-20) H 09/20/17 15:46 Glucose 102 mg/dL (70-100) H 09/20/17 15:46 Lactic Acid 0.8 mmol/L (0.5-2.0) 09/20/17 15:46 Calcium 9.6 mg/dL (8.6-10.3) 09/20/17 15:46 Total Bilirubin 0.50 mg/dL (0.2-1.0) 09/20/17 15:46 AST 17 U/L (13-39) 09/20/17 15:46 ALT 13 U/L (7-52) 09/20/17 15:46 Alkaline Phosphatase 42 U/L (34-104) 09/20/17 15:46 Troponin I 0.00 ng/mL (<0.04) 09/20/17 15:46 Total Protein 6.7 g/dL (6.4-8.9) 09/20/17 15:46 Albumin 4.0 g/dL (3.2-5.2) 09/20/17 15:46 Globulin 2.7 g/dL (2-4) 09/20/17 15:46 Albumin/Globulin Ratio 1.5 (1-3) 09/20/17 15:46 Triglycerides 117 mg/dL 09/20/17 15:46 Cholesterol 194 mg/dL 09/20/17 15:46 LDL Cholesterol 98 mg/dL 09/20/17 15:46 HDL Cholesterol 72.2 mg/dL 09/20/17 15:46 Urine Color Straw 09/20/17 21:40 Urine Appearance Clear 09/20/17 21:40 Urine pH 6.0 (5-9) 09/20/17 21:40 Ur Specific [place] 1.038 (1.010-1.030) H 09/20/17 21:40 Urine Protein Negative (Negative) 09/20/17 21:40 Urine Ketones Negative (Negative) 09/20/17 21:40 Urine Blood Negative (Negative) 09/20/17 21:40 Urine Nitrate Negative (Negative) 09/20/17 21:40 Urine Bilirubin Negative (Negative) 09/20/17 21:40 Urine Urobilinogen Negative (Negative) 09/20/17 21:40 Ur Leukocyte Esterase Trace (Negative) A 09/20/17 21:40 Urine WBC (Auto) Trace(0-5/hpf) (Absent) 09/20/17 21:40 Urine RBC (Auto) Trace(0-2/hpf) (Absent) 09/20/17 21:40 Ur Squamous Epith Cells Present (Absent) A 09/20/17 21:40 Urine Bacteria Absent (Absent) 09/20/17 21:40 Urine Glucose Negative (Negative) 09/20/17 21:40 Blood Type O Positive 09/20/17 15:46 Antibody Screen Negative 09/20/17 15:46 Exam: Awake, alert, oriented. Pupils symmetric and reactive. Face symmetric. -III intact to LT and PP. Tongue midline. Strength 5/5/ throughout. Sensation intact to LT and PP in the upper and lower extremities. Finger to nose intact bilaterally. Gait narrow based and steady. MRI brain did not show any acute stroke. Assessment and Plan: 77-year-old female with an episode of word finding difficulty, suspicious for TIA. MRI brain unremarkable. CTA <50% stenosis in carotids and ~75% stenosis in right brachiocephalic artery. Findings discussed with the patient. Importance of daily antiplatelets discussed. Continue statins. Outpatient follow up with vascular surgery for brachiocephalic stenosis.
--- NOTE | 2017-09-22 07:45 | DS ---
CC: Dr. Cool; Dr. Huang; Dr. Torres DISCHARGE SUMMARY: DATE OF ADMISSION: 09/20/17 DATE OF DISCHARGE: 09/21/17 PRIMARY CARE PROVIDER: Dr. Cool. CONSULTING NEUROLOGIST: Dr. Huang. DISCHARGE DIAGNOSES: 1. Possible transient ischemic attack. 2. 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 3. Incidental finding of enlarged thyroid. 4. Mild aortic stenosis. SECONDARY DIAGNOSES: 1. Hypertension. 2. Asthma. 3. Hyperlipidemia. 4. Breast carcinoma, status post segmental mastectomy on the right. 5. Osteoporosis. 6. Status post bilateral knee replacements. MEDICATION LIST: 1. Alprazolam 0.25 mg p.o. at bedtime as needed for insomnia. 2. Calcium carbonate 750 mg p.o. daily as needed for indigestion. 3. Azelastine/fluticasone 1 spray to both nares twice a day. 4. Boniva 150 mg p.o. once a month. 5. Fexofenadine 60 mg p.o. daily as needed for allergies. 6. Cholecalciferol 1000 units p.o. daily. 7. Lisinopril 5 mg p.o. daily. 8. Lactaid Fast Act 1500 to 3000 units p.o. daily as needed for indigestion. 9. Melatonin 3 mg p.o. at bedtime as needed for insomnia. 10. Fish oil 1000 mg p.o. q.a.m. 11. Nifedipine ER 60 mg p.o. daily. 12. Multivitamin 1 tablet p.o. daily. 13. Turmeric root 500 mg p.o. daily. Medication change: Simvastatin was increased to 40 mg. New medication: Aspirin 81 mg p.o. daily. HOSPITAL COURSE: Mrs. Ocampo is a 77-year-old lady with a past medical history as stated above that presented to the emergency room with complaints of difficulty speaking that she described as her tongue being heavy. This was followed by a tingly sensation in both hands and feet and she decided to go home. Her daughter is a physician, she talked to her, and she convinced her mom to come to the emergency room for further evaluation. The only deficit found in the emergency room was that her left career and technology education teacher was slightly weaker than the right, but no other neurological deficits were seen. The patient had resolution of her symptoms in the emergency room. For more details about her presentation, I refer you to her history and physical. She had a CT of the brain without contrast that showed no CT findings of ischemic stroke or evidence for intracranial hemorrhage. The patient was seen in consultation by Neurology (Dr. Huang) and his impression was the patient possibly had a mild transient ischemic attack or mild stroke. On his examination, she had some sensory asymmetry and some mild facial asymmetry. However, her symptoms were pretty nonspecific and not noticed by a friend who was with her. Her initial symptoms of numbness in both hands and feet does not suggest a focal cerebrovascular lesion. His recommendation was for initial dose of aspirin [address] angiogram. He felt she will also benefit of admission to telemetry, MRI of the brain, permissive hypertension, statin, and echocardiogram. The patient was admitted for further evaluation including a CTA of the head that showed coarse calcification of the carotid bulb causes 50% degree narrowing on the right and 29% degree narrowing on the left. There is coarse calcification at the origin of the right brachiocephalic artery narrowing the lumen at least 75% and enlargement and heterogeneity of the thyroid. The patient had no significant arrhythmias on telemetry. Transthoracic echocardiogram showed ejection fraction of 55% to 60% with no evidence of a PFO , mild aortic stenosis, mild MR, mild AK. The patient had an MRI of the brain without contrast. There was an unremarkable MRI of the brain with no restricted diffusion to suggest acute infarct. The patient was seen in followup by Neurology (Dr. Torres), and his impression was that her symptoms were suspicious for a TIA and his recommendation was for daily antiplatelet therapy with aspirin. We discussed the possibility of adding a second antiplatelet agent (Plavix), but he thought since the patient had less than 50% stenosis in the carotids and no abnormalities on the MRI, and she was not on antiplatelets prior to this admission that just aspirin should suffice. The patient's lipid profile showed a total cholesterol of 184 with an LDL of 98, so the plan is to increase her simvastatin to 40 mg from 20 and she was educated about side effects, especially myalgias and LFT elevations. Her PCP will need to monitor her for side effects. On day of discharge, the patient's symptoms are completely resolved and she feels well for discharge. She will need Vascular Surgery evaluation as outpatient for her right brachiocephalic artery stenosis and she would also benefit of outpatient thyroid ultrasound. She is medically stable for discharge at this time. PHYSICAL EXAMINATION: Vital Signs: Temperature 97.2, heart rate 64, respiratory rate 16, oxygen saturations 99% on room air, and blood pressure is 128/51. General: The patient is a pleasant elderly lady, he is sitting up in bed, in no acute distress. CVS: Normal S1, S2. Regular rate and rhythm with a systolic murmur. Chest: Breath sounds present bilaterally with no added sounds. Extremities: No edema. Neuro: She is alert and oriented x3, able to move all 4 extremities with no focal deficits. DIET: Heart-healthy diet. ACTIVITIES: As tolerated. DISPOSITION: To home. STATUS WHILE IN THE HOSPITAL: Observation. Please keep in mind this is a summarized version of this patient's hospital stay. If you need more information, please feel free to call me at [phone] or please obtain the full medical records. TIME SPENT: Approximately 45 minutes were spent to complete this discharge. The patient's daughter who is a physician was called and updated about her mother's diagnosis, test results, and plan of care. [id number]/[facility] #: [id number] MTDMoses
== END 2017-09-21 16:51 | disposition home or self-care (01) ==
LOC: ED 14:53 → MEDTELE 18:18
PROVIDERS: ADMIT Internal Medicine; ATTEND Internal Medicine
DX: R47.89 Other speech disturbances (principal); R20.2 Paresthesia of skin; I70.208 Unspecified atherosclerosis of native arteries of extremities, other extremity; E04.9 Nontoxic goiter, unspecified; I35.0 Nonrheumatic aortic (valve) stenosis; I10 Essential (primary) hypertension; J45.909 Unspecified asthma, uncomplicated; E78.5 Hyperlipidemia, unspecified; I51.7 Cardiomegaly; Z85.3 Personal history of malignant neoplasm of breast; M81.0 Age-related osteoporosis without current pathological fracture; Z96.653 Presence of artificial knee joint, bilateral; Z79.899 Other long term (current) drug therapy; Z79.82 Long term (current) use of aspirin
CPT/HCPCS: 36415; 70450; 70496; 70498; 70551; 71045; 80053; 80061; 81003; 81015; 83605; 84484; 85025; 85610; 85730; 86850; 86900; 86901; 87086; 93005; 93306; 96372; 99284; A9270-GY; G0378; G8978-GP-CI; G8979-GP-CI; G8980-GP-CI; G8987-GO-CH; G8988-GO-CH; G8989-GO-CH; J1644; Q9967

== ENCOUNTER 2017-09-28 13:27 | Emergency (ER) | payer MEDICARE, OTHER ==
[2017-09-28] MEDS ORDERED: NS 0.9% 1000 ML* 1,000 ML IV ONE (13:56)
--- NOTE | 2017-09-28 14:25 | ED ---
Neurological HPI - HPI Summary HPI Summary: This patient is a 77 year old F presenting to [facility] accompanied by a man with a chief complaint of numbness and tingling in her head, arms, legs since 11:30 this morning. Pt was about to go out to lunch with a friend, called her PCP, and was advised to go to the [facility]. Pt states she had a TIA 8 days ago when she was given Lipitor and aspirin. Upon triage, the nurse found no deficits, esthetic dermatologist equal, steady gait, no slurred speech, no facial droop. Patient reports anxiety. Patient denies CP, trouble breathing, falls, head injury, MARES, vision trouble, nausea, urinary symptoms, dysuria, increased urinary frequency. - History of Current Complaint Chief Complaint: EDNeurologicalDeficit Stated Complaint: POSS STROKE Time Seen by Provider: 09/28/17 13:49 Hx Obtained From: Patient Onset/Duration: Sudden Onset, Started hours ago - this morning Timing: Constant Onset Severity: Mild Seizure Severity: Mild Pain Intensity: 0 Pain Scale Used: 0-10 Numeric Character: Numbness/Tingling - Additional Pertinent History Primary Care Physician: CLAUDIO - Allergy/Home Medications Allergies/Adverse Reactions: Allergies Allergy/AdvReac Type Severity Reaction Status Date / Time shellfish derived Allergy Severe Difficulty Verified 09/28/17 13:49 Breathing grape Allergy Difficulty Verified 09/28/17 13:49 Breathing grape seed Allergy Difficulty Verified 09/28/17 13:49 Breathing kiwi Allergy Difficulty Verified 09/28/17 13:49 Breathing PMH/Surg Hx/FS Hx/Imm Hx Endocrine/Hematology History: Denies: Hx Diabetes Cardiovascular History: Reports: Hx Hypertension Denies: Hx Pacemaker/ICD Comment Only: Other Cardiovascular Problems/Disorders - heart murmur Respiratory History: Reports: Hx Asthma, Other Respiratory Problems/Disorders - RECENT NAGGING COUGH (STARTED TODAY) GI History: Reports: Hx Gastroesophageal Reflux Disease, Other GI Disorders - LACTOSE INTOLERANCE History: Denies: Hx Renal Disease Musculoskeletal History: Reports: Hx Arthritis - HIPS, KNEES, SHOULDERS, Hx Osteoporosis, Hx Scoliosis, Other Musculoskeletal History - 2004 LEFT TKR, OSTEOARTHRITIS RIGHT KNEE, EFFUSION Sensory History: Reports: Hx Contacts or Glasses Denies: Hx Cataracts, Hx Hearing Aid Opthamlomology History: Reports: Hx Contacts or Glasses Denies: Hx Cataracts Neurological History: Reports: Hx Migraine - AURA ONLY, NO HEADACHE, LAST AURA WAS 3 WEEKS AGO Denies: Hx Headaches, Other Neuro Impairments/Disorders Psychiatric History: Denies: Hx Panic Disorder - Cancer History Cancer Type, Location and Year: BREAST Hx Chemotherapy: Yes - 1999 RIGHT BREAST CA Hx Radiation Therapy: Yes - BREAST - Surgical History Surgery Procedure, Year, and Place: PARTIAL SEGMENTAL MASTECTOMY RIGHT BREAST 2011 [facility],. TUBAL LIGATION 1974 [facility]. LEFT TOTAL KNEE REPLACEMENT 2004 [place]. BILATERAL CATARACTS 2011 [facility]. RIGHT TOTAL KNEE JUNE 2016 Hx Anesthesia Reactions: Yes - USUALLY EXPERIENCES WEAKNESS, DIZZINESS Infectious Disease History: No Infectious Disease History: Denies: Hx Clostridium Difficile, Hx Hepatitis, Hx Human Immunodeficiency Virus (HIV), History Other Infectious Disease, Traveled Outside the [place] in Last 30 Days - Family History Known Family History: Positive: Cardiac Disease, Hypertension Negative: Diabetes - Social History Alcohol Use: None Hx Substance Use: No Substance Use Type: Reports: None Hx Tobacco Use: No Smoking Status (MU): Never Smoked Tobacco Have You Smoked in the Last Year: No Review of Systems Negative: Chest Pain Negative: Shortness Of Breath Negative: Nausea Negative: burning, dysuria, frequency Positive: Other - numbness/tingling in extremities Negative: Headache Positive: Anxious All Other Systems Reviewed And Are Negative: Yes Physical Exam - Summary Physical Exam Summary: Appearance: Well appearing, no pain distress Skin: warm, dry, reflects adequate perfusion Head/face: normal Eyes: EOMI, BRAYAN ENT: normal Neck: supple, non-tender Respiratory: CTA, breath sounds present Cardiovascular: RRR, pulses symmetrical Abdomen: non-tender, soft Bowel Sounds: present Musculoskeletal: normal, strength/ROM intact Neuro: normal, sensory motor intact, A&Ox3 GCS: 15 Triage Information Reviewed: Yes Vital Signs On Initial Exam: Initial Vitals Temp Pulse Resp BP Pulse Ox 97.6 F 76 16 163/54 99 09/28/17 13:30 09/28/17 13:30 09/28/17 13:30 09/28/17 13:30 09/28/17 13:30 Vital Signs Reviewed: Yes Diagnostics - Vital Signs Vital Signs Temp Pulse Resp BP Pulse Ox 09/28/17 14:00 18 09/28/17 13:46 20 160/63 09/28/17 13:30 97.6 F 76 16 163/54 99 - Laboratory Result Diagrams: 09/28/17 14:18 09/28/17 14:18 Lab Statement: Any lab studies that have been ordered have been reviewed, and results considered in the medical decision making process. - EKG 14:10 Cardiac Rate: NL - 60 bpm EKG Rhythm: Sinus Rhythm ST Segment: Normal EKG Interpretation: Nml axis, nml interval NIH Scale - NIH Scale Level of Consciousness: Alert/Keenly Responsive Ask Patient the Month and His/Her Age: Both Correct Ask Pt to Open/Close Eyes and Software Test Analyst/Release Non-Paretic Hand: Both Correctly Best Gaze (Only Horizontal Eye Movement): Normal Visual Field Testing: No Visual Loss Facial Paresis-Pt to Smile & Close Eyes or Grimace Symmetry: Normal/Symmetrical Motor Function - Right Arm: No Drift-Holds 10 Seconds Motor Function - Left Arm: No Drift-Holds 10 Seconds Motor Function - Right Leg: No Drift-Holds 10 Seconds Motor Function - Left Leg: No Drift-Holds 10 Seconds Limb Ataxia-Must be out of Proportion to Weakness Present: Absent Sensory (Use Pinprick to Test Arms/Legs/Trunk/Face): Normal Best Language (Describe Picture, Name Items): No Aphasia Dysarthria (Read Several Words): Normal Extinction and Inattention: No Abnormality Total Score: 0 Re-Evaluation - Re-Evaluation First Eval Re-Evaluation Time: 15:15 Change: Improved Comment: Pt is feeling better and wants to go home. Course/Dx - Course Course Of Treatment: Patient with a history of recent TIA on aspirin brought in for bilateral tingling in the hands and feet. She has no other neurologic deficit with it NIH stroke score of 0. She calmed here and her symptoms abated spontaneously. Laboratories are unremarkable. She is discharged in good condition to follow up with her primary care physician. - Differential Dx Differential Diagnoses Neuro: Positive: Other - Anxiety, metabolic abnormality, infectious, arrhythmia - Diagnoses Provider Diagnoses: Tingling in extremities Discharge - Sign-Out/Discharge Documenting (check all that apply): Patient Departure - discharge - Discharge Plan Condition: Stable Disposition: HOME Patient Education Materials: Paresthesia (ED) Referrals: Javier Cool MD [Primary Care Provider] - Additional Instructions: Follow-up with your doctor in 1 day. Return to the ER with severe headache, difficulty with speech, new numbness, weakness or other concerns as discussed. - Billing Disposition and Condition Condition: STABLE Disposition: Home
[2017-09-28 14:45] LABS: ABS Basophils 0.1 10^3/ul (0-0.2); ABS Eosinophils 0.2 10^3/ul (0-0.6); ABS Lymphocytes 1.2 10^3/ul (1.0-4.8); ABS Monocytes 0.6 10^3/ul (0-0.8); ABS Neutrophils 2.5 10^3/ul (1.5-7.7); ABS Nucleated RBC 0 10^3/ul; Eosinophil % 3.6 % (0-6); Hematocrit 40 % (35-47); Hemoglobin 13.2 g/dl (12.0-16.0); Lymphocyte % 25.8 % (25-47); Mean Corpuscular HGB Conc 33 g/dl (31-36); Mean Corpuscular Hemoglobin 31 pg (27-31); Mean Corpuscular Volume 94 fL (80-97); Mean Platelet Volume 8.3 um3 (7.4-10.4); Nucleated Red Blood Cells % 0.1; Platelet Count 226 10^3/ul (150-450); Red Blood Count 4.28 10^6/ul (4.00-5.40); Red Cell Distribution Width 14 % (10.5-15); White Blood Count 4.5 10^3/ul (3.5-10.8)
[2017-09-28 14:46] LABS: EGFR Non-African American 59.4 (>60)
--- OUTSIDE RECORDS SUMMARY | 2017-09-28 14:50 | XMS REPORT ---
:1940 External Reference #:[id number] Author Organization [facility] Address [address] [place] [address] Phone [phone] Care Team Providers Name Role Phone Javier Cool MD Care Team Information Circular Distributor Unavailable Javier Cool MD Primary Care Physician Unavailable Payers Type Date Identification Numbers Payment Provider Subscriber Medicare Primary Effective: Policy Number: Medicare [place] 2010 [id number] PayID: [id number] [address] [facility] [address] Commercial Effective: 2010 Policy Number: [id number] [employer] [place] [employer] Number: [id number] [id number] PayID: [id number] [place] [address] Problems Date Description Provider Status Onset: 05/08/2017 Knee pain Javier Cool M.D. Active Onset: 08/11/2016 Syncope and collapse Javier Cool M.D. Active Onset: 05/02/2016 Insomnia Javier Cool M.D. Active Onset: 05/11/2015 Essential hypertension Javier Cool M.D. Active Onset: 10/10/2011 Sensory function status: taste and Javier Cool M.D. Active smell Onset: 04/11/2011 Benign essential hypertension Javier Cool M.D. Active Onset: 04/11/2011 Pure hypercholesterolemia Javier Cool M.D. Active Family History Date Family Member(s) Problem(s) Comments Father Ascvd Mother Cancer Esophagus Social History Type Date Description Comments Cigarette Use Nonsmoker ETOH Use Denies alcohol use Smoking Patient has never smoked Daily Caffeine Occ Uses Caffeine Pills To Stay Awake Allergies, Adverse Reactions, Alerts Date Description Reaction Status Severity Comments 04/11/2011 NKDA active 10/01/2008 Kiwi active Asthma 01/18/2010 Shellfish active 08/24/2010 Seasonal active 08/24/2010 Environmental active 10/10/2011 Eggplant itchy throat active Medications Medication Date Status Form Strength Qnty SIG Indications Ordering Provider Atorvastatin 09/27 Active Tablets 80mg 90tab 1 by Rosie Dexter /2017 s mouth Nii every day , MD Mcdowell 09/05 Active Tablets 150mg 3tabs take 1 Javier Barnard pill by miguel Cool M.D. once monthly Azelastine HCL 09/05 Active Solution 0.1% 1unit 1 spray Javier Barnard (Nasal) s per each Travon nostril M.DJohn daily Xanax 05/02 Active Tablets 0.5mg 30tab 1 hour Javier Barnard s prior to lashaun Cool M.DJohn Lisinopril 04/20 Active Tablets 5mg 90tab Take 1 Javier Barnard s Tablet By Miguel Cool M.[place] Daily Nifedical XL 08/16 Active Tablets ER 60mg 90tab Take 1 Javier Branard 24HR s Tablet By Miguel Cool.[place] Daily Fish Oil 07/08 Active Capsules 1000mg 1 po Jade Sullivan /2009 daily Alis Escobar Calcium Active Unknown / Melatonin Active Capsules Unknown / Cuca Allergy Active Tablets 180mg 90tab 1 po qd Unknown /0000 s prn Tylenol Extra Active Tablets 500mg 2 tabs Unknown Strength /0000 three times a day as needed Tramadol HCL Active Tablets 50mg 60tab 1 by Javier Barnard / s mouth Travon, every 6 M.D. hours as needed Vosol HC 05/02 Hx Solution 2-1% 10uni instill Javier Barnard ts 2-3 drops Travon - into the M.D. 10/30 ear(s) two times a day Hydrochlorothiazi 11/08 Hx Capsules 12.5mg 30cap 1 by Javier retana /2015 s mouth Travon, - every day M.D. 09/27 prn /2017 Doxycycline 02/05 Hx Capsules 100mg 20cap use 1bid Javier Barnard Hyclate /2012 s Travon, - M.D. 10/21 Sonata 09/04 Hx Capsules 5mg 15cap 1 by Diana /2012 s mouth Sumaya, - every KILN TESTER 05/02 night at bedtime as needed Fluticasone 09/04 Hx Suspension 50mcg/Act 3unit 2 [place] Javier Barnard Propionate s Each Travon, - Nostril M.D. 12/28 qd /2014 Simvastatin 05/09 Hx Tablets 20mg 90tab Take 1 I73.9 Javier Barnard /2012 s Tablet By Travon, - Mouth M.D. 09/27 Daily /2017 Note 01/16 Hx 1unit pt july Javier Barnard /2011 s receive Travon, - shingles M.DJohn 04/16 vaccine/z ostavax serum Pseudoephedrine 10/09 Hx Tablets ER 120mg 30tab use 1 Javier Barnard HCL ER /2011 12HR s po q.d Travon - M.DJohn 10/15 Zestril 06/08 Hx Tablets 5mg 90tab 1 tablet Javier Barnard /2010 s once Travon, - daily M.D. 04/16 Probiotics 07/08 Hx 100un 1-4 daily 787.3 Jade LJohn /2009 its Rommel Escobar M.DJohn 10/09 Endefin 07/08 Hx 1Bott Metagenic 787.3 Jade LJohn /2009 le s Shawn, - product. M.D. 08/24 teaspoon daily Digestive Enzymes 07/08 Hx 100un 3 with 787.3 Jade LJohn /2009 its each meal Rommel Escobar M.D. 08/24 Singulair 10/01 Hx Tablets 10mg 90tab 1 po qd Javier Barnard /2008 s Rommel Cool.[place] 10/09 Physical Therapy 02/24 Hx Treatment Javier Barnard /2007 And Travon - Evaluatio M.[place] 04/25 n Low Back Pain-Lumb ar Instabili ty Effexor XR 01/12 Hx Caps ER 37.5mg 90cap 1 po qd Javier Barnard /2007 24HR s Rommel Cool M.D. 07/08 Effexor 11/25 Hx Tablets 37.5mg q.D. Javier Barnard /2007 Rommel Cool M.D. 01/12 Hydrochlorothiazi 11/25 Hx Tablets 25mg 30tab 1 po prn Javier retana s swelling Rommel Cool M.D. 07/08 Trazodone HCL 11/25 Hx Tablets 50mg 90tab take 1 Javier Barnard /2007 s tablet Travon, - daily M.D. 11/08 Omeprazole 03/[address] 40mg 90cap Take 1 Javier Barnard /2006 s Capsule Travon, - Daily M.D. 10/15 Acidphex 02/26 Hx 40mg 30uni 1 po qd Javier Barnard /2006 Rommel Dejesus M.D. 03/15 Pepcid ac - 01/21 Hx Tablets 20mg 30tab 1 A day Tana vu Padilla - Afnp-C 07/08 Z-Beny 07/24 Hx Tablets 250mg as Javier Barnard /2006 Dfirected Rommel Cool M.D. 04/23 Rozerem 01/23 Hx 8mg 30uni 1 PO QLEONOR Barnard /2005 Rommel Dejesus M.D. 11/25 Trazodone 12/26 Hx Tablets 100mg 45tab 03/20 po Javier Barnard /2005 s qRommel Vance M.D. 11/25 Effexor XR 12/08 Hx Capsules 75mg 90cap 1 po qam Javier Barnard /2005 Rommel Stacy M.D. 11/25 Effexor 08/02 Hx Tablets 75mg 90tab 1 po qd Javier Barnard /2005 Rommel Stacy M.D. 12/08 Amoxicillin 08/02 Hx Tablets 500mg 8tabs 4 Pills Javier Barnard /2005 1 Hour Rommel Cool Prior To M.DJohn 07/08 Physical Therapy 03/29 Hx treatment Javier Barnard /2005 and Rommel Cool M.D. 02/27 nof r hip /2005 pain due to leg discrepan cy Handicap Parking 03/04 Hx 1unit needed Javier Barnard s due to: Rommel Cool knee Alis 02/27 surgery length of need: 6 mon. Note 12/24 Hx PT has Javier Barnard HTN/hyper Rommel Cool lipidemia Zeyad.[place] 02/27 well /2006 controlle d on meds. she appears physicall y able to undergo surgery. Physical Therapy 05/16 Hx treatment Javier Barnard and Travon, - stanley Snell 07/26 n for knee valgus problem Zithromax 04/26 Hx 250mg 6unit 2 Tabs Melissa s Day 1 Irma, Rommel Afnp-C 05/01 1 Tab qd Days 2 Thru 5 Robitussin ac 04/26 Hx 6Oz 1-2 tsp Tana po q4h Randy - prn cough Afnp-C 01/28 Albuterol Inhaler 04/26 Hx 1unit 2 puffs Q Javier Barnard /2004 s 4 HRS prn Rommel Cool M.D. 10/09 Ambien 03/25 Hx 10mg 30uni 1 po qhs Javier Barnard /2004 prRommel Crum M.D. 11/25 Trazadone 03/25 Hx 50mg 30uni 1 po q Javier Barnard /2004 ts hs Rommel Cool M.D. 11/25 Work 11/10 Hx Advise No Tana Work Due Randy - To Finger Afnp-C 11/24 Injury Over Next 2 Weeks Levaquin 10/16 Hx 500mg 14uni 1 qd Gennaro Lyly /2002 Rommel Peña M.D. 07/06 Motrin 10/08 Hx 600mg 270un one tid Javier Barnard its prn Rommel Cool M.D. 10/30 Effexor XR 06/18 Hx 75mg 90uni 1 po qd Melissa Rommel Erazo Afnp-C 08/02 Zocor 09/04 Hx 20mg 90uni 1 qd Javier Barnard /2000 Rommel Dejesus M.D. 10/15 Motrin 05/03 Hx 600mg 0unit 1 PO tid Javier Barnard /1999 s prn Rommel Cool M.D. 10/08 Cuca 05/03 Hx Tablets 60mg 180ta 1 bid Javier Barnard /1999 bs Rommel Cool M.D. 04/16 Zestril 05/03 Hx Tablets 5 90tab 1 tablet Javier Barnard /1999 s once Travon, - daily M.D. 06/08 Procardia XL 04/05 Hx 60 90uni one tab Javier Barnard /1999 ts qd Rommel Cool M.D. 04/16 Zestril 03/24 Hx Tablets 10mg 30tab 1 Tablet Javier Barnard /1999 s Once Travon, - Daily M.D. 04/05 Clarinex 03/22 Hx 10mg 60uni 1 qd prn Javier Barnard /1999 Rommel Dejesus M.D. 12/24 Entex-LA (Without 03/22 Hx 20uni 1 PO bid Javier Le) Rommel Mckee M.D. 10/08 Celebrex 03/22 Hx Tabs 200mg 90tab 1 po qd Javier Barnard /1999 s prRommel Crum M.D. 07/06 Doxycycline 01/26 Hx 100mg 20uni 1 PO bid Glynn Zavala /1997 Rommel Mcnamara M.D. 02/05 Retin A Cream 06/30 Hx 0.5% 45gm Use as Javier Barnard /1997 Directed. Rommel Cool M.D. 07/06 Evista Hx Tablets 60mg 90tab 1 PO qd Unknown / s - 10/30 Eye Vitamins / Hx Capsules Unknown / - 08/24 Fish Oil 00/ Hx Unknown /0000 - 10/09 Loratadine Hx Tablets 10mg 30tab 1 po qd Unknown / s prn - 12/28 Astelin Hx Solution 137mcg/Sp 1midi 1-2 Unknown / ray sprays - each 12/28tr bid Dymista Hx Suspension 137-50mcg 23gm use Javier Barnard /0000 /Act 1spray Breiman, - twice a M.D. /2016 Immunizations CPT Code Status Date Vaccine Lot # [id number] Given 01/23/2017 High-Dose, Influenza Virus Vacccine-fluzone 65 [id number] and older 61474 Given 01/18/2016 High-Dose, Influenza Virus Vacccine-fluzone 65 [id number] and older 79309 Given 12/28/2014 Influenza Vac, Quadrivalent, Slit Virus, Im [id number] 37393 Given 03/24/2014 Pneumococcal Conjugate Vacc-13 67701 Given 12/26/2013 High-Dose, Influenza Virus Vacccine-fluzone 65 and older 87476 Given 01/07/2013 High-Dose, Influenza Virus Vacccine-fluzone 65 and older 80665 Given 04/16/2012 Tdap Tetanus, W Pertussis [id number] 65726 Given 04/09/2012 Zostivax 03873 Given 01/07/2010 DO Not Use Split Influenza Virus Vaccine [id number] 83983 Given 01/07/2010 Pneumococcal Immunization [id number] 86760 Given 03/25/2009 H1N1 Virus Vaccine [id number] 72549 Given 03/23/2009 H1N1 Virus Vaccine 04859 Given 03/23/2009 H1N1 Immunization Intramuscular/Intranasal W Counseling 14398 Given 02/19/2009 DO Not Use Split Influenza Virus Vaccine [id number] 39488 Given 01/24/2008 DO Not Use Split Influenza Virus Vaccine [id number] 30047 Given 01/21/2007 DO Not Use Split Influenza Virus Vaccine [id number] 55660 Given 01/23/2006 DO Not Use Split Influenza Virus Vaccine [id number] 03230 Given 08/05/1997 Td Immunization, For Use In Individuals 7 Years Or Older Vital Signs Date Vital Result Comment 09/27/2017 BP Systolic 132 mmHg BP Diastolic 60 mmHg Heart Rate 64 /min Body Temperature 97.9 F Respiratory Rate 16 /min Height 63 inches 5'3" Weight 145.00 lb BMI (Body Mass Index) 25.7 kg/m2 08/27/2017 BP Systolic 134 mmHg BP Diastolic 70 mmHg Heart Rate 60 /min Body Temperature 97.9 F Respiratory Rate 16 /min Height 63 inches 5'3" Weight 144.25 lb BMI (Body Mass Index) 25.5 kg/m2 05/08/2017 BP Systolic 130 mmHg BP Diastolic 78 mmHg Heart Rate 68 /min Body Temperature 98.2 F Respiratory Rate 16 /min Height 63 inches 5'3" Weight 143.00 lb BMI (Body Mass Index) 25.3 kg/m2 04/05/2017 BP Systolic 140 mmHg BP Diastolic 80 mmHg Heart Rate 66 /min Body Temperature 97.7 F Respiratory Rate 16 /min Height 63 inches 5'3" Weight 142.12 lb BMI (Body Mass Index) 25.2 kg/m2 10/31/2016 BP Systolic 136 mmHg BP Diastolic 70 mmHg Heart Rate 90 /min Body Temperature 97.7 F Height 63 inches 5'3" Weight 141.25 lb BMI (Body Mass Index) 25.0 kg/m2 09/05/2016 BP Systolic 134 mmHg BP Diastolic 68 mmHg Heart Rate 64 /min Body Temperature 97.7 F Respiratory Rate 16 /min Height 63 inches 5'3" Weight 141.00 lb BMI (Body Mass Index) 25.0 kg/m2 08/11/2016 BP Systolic 120 mmHg BP Diastolic 60 mmHg Heart Rate 74 /min Body Temperature 97.9 F Respiratory Rate 16 /min Height 63 inches 5'3" Weight 141.00 lb BMI (Body Mass Index) 25.0 kg/m2 06/20/2016 BP Systolic 110 mmHg BP Diastolic 80 mmHg Heart Rate 60 /min Body Temperature 98.2 F Respiratory Rate 18 /min Height 63 inches 5'3" Weight 140.00 lb BMI (Body Mass Index) 24.8 kg/m2 05/02/2016 BP Systolic 134 mmHg BP Diastolic 72 mmHg Heart Rate 64 /min Body Temperature 98.0 F Respiratory Rate 16 /min Height 63 inches 5'3" Weight 140.00 lb BMI (Body Mass Index) 24.8 kg/m2 11/09/2015 BP Systolic 130 mmHg BP Diastolic 64 mmHg Heart Rate 58 /min Body Temperature 97.6 F Respiratory Rate 16 /min Height 63 inches 5'3" Weight 137.12 lb BMI (Body Mass Index) 24.3 kg/m2 05/11/2015 BP Systolic 140 mmHg BP Diastolic 70 mmHg Heart Rate 64 /min Body Temperature 98.2 F Respiratory Rate 16 /min Height 63 inches 5'3" Weight 137.00 lb BMI (Body Mass Index) 24.3 kg/m2 12/28/2014 BP Systolic 148 mmHg BP Diastolic 72 mmHg Heart Rate 68 /min Body Temperature 97.4 F Height 63 inches 5'3" Weight 135.00 lb BMI (Body Mass Index) 23.9 kg/m2 11/03/2014 BP Systolic 126 mmHg BP Diastolic 64 mmHg Heart Rate 58 /min Body Temperature 97.9 F Respiratory Rate 16 /min Height 63 inches 5'3" Weight 136.00 lb BMI (Body Mass Index) 24.1 kg/m2 05/05/2014 BP Systolic 124 mmHg BP Diastolic 70 mmHg Heart Rate 62 /min Body Temperature 96.3 F Respiratory Rate 18 /min Height 63 inches 5'3" Weight 137.00 lb BMI (Body Mass Index) 24.3 kg/m2 10/21/2013 BP Systolic 122 mmHg BP Diastolic 60 mmHg Heart Rate 60 /min Body Temperature 97.3 F Respiratory Rate 18 /min Height 63 inches 5'3" Weight 135.00 lb BMI (Body Mass Index) 23.9 kg/m2 02/05/2013 BP Systolic 118 mmHg BP Diastolic 70 mmHg Heart Rate 64 /min Body Temperature 98.0 F Respiratory Rate 18 /min Height 63 inches 5'3" Weight 137.00 lb BMI (Body Mass Index) 24.3 kg/m2 11/07/2012 BP Systolic 120 mmHg BP Diastolic 70 mmHg Heart Rate 76 /min Body Temperature 98.0 F Respiratory Rate 16 /min Height 63 inches 5'3" Weight 138.00 lb BMI (Body Mass Index) 24.4 kg/m2 10/15/2012 BP Systolic 140 mmHg BP Diastolic 80 mmHg Heart Rate 80 /min Body Temperature 97.6 F Respiratory Rate 16 /min Height 63 inches 5'3" Weight 137.00 lb BMI (Body Mass Index) 24.3 kg/m2 09/26/2012 BP Systolic 150 mmHg BP Diastolic 66 mmHg Heart Rate 60 /min Body Temperature 97.9 F Height 63 inches 5'3" Weight 139.50 lb BMI (Body Mass Index) 24.7 kg/m2 08/26/2012 BP Systolic 110 mmHg BP Diastolic 80 mmHg Heart Rate 80 /min Body Temperature 98.2 F Respiratory Rate 16 /min Height 63 inches 5'3" Weight 139.00 lb BMI (Body Mass Index) 24.6 kg/m2 04/16/2012 BP Systolic 130 mmHg BP Diastolic 70 mmHg Heart Rate 88 /min Body Temperature 97.8 F Height 63 inches 5'3" Weight 137.00 lb BMI (Body Mass Index) 24.3 kg/m2 10/10/2011 BP Systolic 130 mmHg BP Diastolic 68 mmHg Heart Rate 64 /min Body Temperature 97.6 F Height 63 inches 5'3" Weight 139.00 lb BMI (Body Mass Index) 24.6 kg/m2 04/11/2011 BP Systolic 130 mmHg BP Diastolic 50 mmHg Heart Rate 64 /min Body Temperature 97.9 F Respiratory Rate 16 /min Height 63 inches 5'3" Weight 141.00 lb BMI (Body Mass Index) 25.0 kg/m2 08/24/2010 BP Systolic 124 mmHg BP Diastolic 58 mmHg Heart Rate 80 /min Body Temperature 97.5 F Respiratory Rate 16 /min Height 63 inches 5'3" Weight 142.00 lb BMI (Body Mass Index) 25.2 kg/m2 01/18/2010 BP Systolic 110 mmHg BP Diastolic 54 mmHg Heart Rate 68 /min Height 63 inches 5'3" Weight 138.00 lb BMI (Body Mass Index) 24.4 kg/m2 09/21/2009 BP Systolic 124 mmHg BP Diastolic 58 mmHg Heart Rate 74 /min Weight 142.00 lb 07/08/2009 BP Systolic 142 mmHg BP Diastolic 70 mmHg Heart Rate 72 /min Body Temperature 97.8 F Height 63 inches 5'3" Weight 146.00 lb BMI (Body Mass Index) 25.9 kg/m2 10/01/2008 BP Systolic 124 mmHg BP Diastolic 68 mmHg Heart Rate 60 /min Height 63 inches 5'3" Weight 148.00 lb BMI (Body Mass Index) 26.2 kg/m2 03/31/2008 BP Systolic 130 mmHg BP Diastolic 78 mmHg Heart Rate 76 /min Body Temperature 97.9 F Height 63 inches 5'3" Weight 161.00 lb BMI (Body Mass Index) 28.5 kg/m2 02/25/2008 BP Systolic 128 mmHg BP Diastolic 66 mmHg Heart Rate 64 /min Height 63 inches 5'3" Weight 160.00 lb BMI (Body Mass Index) 28.3 kg/m2 11/26/2007 BP Systolic 124 mmHg BP Diastolic 68 mmHg Heart Rate 68 /min Height 63 inches 5'3" Weight 164.00 lb BMI (Body Mass Index) 29.0 kg/m2 04/23/2007 BP Systolic 120 mmHg BP Diastolic 70 mmHg Heart Rate 68 /min Body Temperature 98.8 F Height 63 inches 5'3" Weight 156.00 lb BMI (Body Mass Index) 27.6 kg/m2 01/21/2007 BP Systolic 120 mmHg BP Diastolic 60 mmHg Body Temperature 99.1 F Height 63 inches 5'3" Weight 159.00 lb BMI (Body Mass Index) 28.2 kg/m2 07/24/2006 BP Systolic 130 mmHg BP Diastolic 72 mmHg Heart Rate 66 /min Body Temperature 99.0 F Height 63 inches 5'3" Weight 161.00 lb BMI (Body Mass Index) 28.5 kg/m2 03/17/2006 BP Systolic 122 mmHg BP Diastolic 72 mmHg Heart Rate 80 /min Body Temperature 98.6 F Height 63 inches 5'3" 01/23/2006 BP Systolic 144 mmHg BP Diastolic 60 mmHg Heart Rate 66 /min Height 63 inches 5'3" Weight 167.00 lb BMI (Body Mass Index) 29.6 kg/m2 08/02/2005 BP Systolic 130 mmHg BP Diastolic 76 mmHg Heart Rate 72 /min Height 63 inches 5'3" Weight 171.00 lb BMI (Body Mass Index) 30.3 kg/m2 07/26/2004 BP Systolic 132 mmHg BP Diastolic 70 mmHg Heart Rate 60 /min Height 63 inches 5'3" Weight 169.00 lb BMI (Body Mass Index) 29.9 kg/m2 05/16/2004 BP Systolic 140 mmHg BP Diastolic 80 mmHg Heart Rate 64 /min Body Temperature 97.0 F Height 63 inches 5'3" Weight 175.00 lb BMI (Body Mass Index) 31.0 kg/m2 04/26/2004 BP Systolic 110 mmHg BP Diastolic 60 mmHg Heart Rate 84 /min Body Temperature 94.0 F Height 63 inches 5'3" Weight 175.00 lb BMI (Body Mass Index) 31.0 kg/m2 03/25/2004 BP Systolic 130 mmHg BP Diastolic 76 mmHg Heart Rate 76 /min Height 63 inches 5'3" Weight 171.00 lb BMI (Body Mass Index) 30.3 kg/m2 07/07/2003 BP Systolic 126 mmHg BP Diastolic 60 mmHg Heart Rate 72 /min Height 63 inches 5'3" Weight 173.00 lb BMI (Body Mass Index) 30.6 kg/m2 11/10/2002 BP Systolic 120 mmHg BP Diastolic 70 mmHg Heart Rate 60 /min Body Temperature 99.2 F Height 63 inches 5'3" Weight 175.00 lb BMI (Body Mass Index) 31.0 kg/m2 10/16/2002 BP Systolic 120 mmHg BP Diastolic 72 mmHg Heart Rate 68 /min Height 63 inches 5'3" Weight 174.00 lb BMI (Body Mass Index) 30.8 kg/m2 08/12/2002 BP Systolic 130 mmHg BP Diastolic 78 mmHg Heart Rate 64 /min Height 63 inches 5'3" Weight 176.00 lb BMI (Body Mass Index) 31.2 kg/m2 04/18/2002 BP Systolic 132 mmHg BP Diastolic 82 mmHg Heart Rate 76 /min Height 63 inches 5'3" Weight 175.00 lb BMI (Body Mass Index) 31.0 kg/m2 12/24/2001 BP Systolic 128 mmHg BP Diastolic 70 mmHg Heart Rate 72 /min Height 63 inches 5'3" Weight 173.00 lb BMI (Body Mass Index) 30.6 kg/m2 06/18/2001 BP Systolic 140 mmHg BP Diastolic 70 mmHg Heart Rate 72 /min Body Temperature 98.5 F Height 63 inches 5'3" Weight 174.00 lb BMI (Body Mass Index) 30.8 kg/m2 10/08/2000 BP Systolic 120 mmHg BP Diastolic 78 mmHg Heart Rate 68 /min Height 63 inches 5'3" Weight 172.00 lb BMI (Body Mass Index) 30.5 kg/m2 08/07/2000 BP Systolic 130 mmHg BP Diastolic 80 mmHg Heart Rate 72 /min Weight 175.00 lb 12/27/1999 BP Systolic 130 mmHg BP Diastolic 82 mmHg Weight 169.00 lb 09/23/1999 BP Systolic 160 mmHg SM Cuff, [place] BP Diastolic 76 mmHg SM [place]uff, [place] Heart Rate 64 /min Reg Respiratory Rate 12 /min Easy Weight 171.00 lb 05/24/1999 BP Systolic 154 mmHg BP Diastolic 90 mmHg Weight 170.00 lb 05/03/1999 BP Systolic 146 mmHg LG Cuff BP Diastolic 90 mmHg LG Cuff Weight 171.00 lb 04/19/1999 BP Systolic 172 mmHg BP Diastolic 86 mmHg Weight 171.00 lb 04/05/1999 BP Systolic 130 mmHg BP Diastolic 80 mmHg Weight 170.00 lb 03/22/1999 BP Systolic 150 mmHg BP Diastolic 90 mmHg Weight 168.00 lb 01/26/1998 Body Temperature 95.9 F Weight 170.00 lb Results Test Date Test Result H/L Range Note CBC Auto Diff 09/20/2017 White Blood Count 5.8 10^3/uL 3.5-10.8 Red Blood Count 4.33 10^6/uL 4.00-5.40 Hemoglobin 13.5 g/dL 12.0-16.0 Hematocrit 40 % 35-47 Mean Corpuscular Volume 92 fL 80-97 Mean Corpuscular Hemoglobin 31 pg 27-31 Mean Corpuscular HGB Conc 34 g/dL 31-36 Red Cell Distribution Width 14 % 10.5-15 Platelet Count 228 10^3/uL 150-450 Mean Platelet Volume 8.3 um3 7.4-10.4 Abs Neutrophils 3.9 10^3/uL 1.5-7.7 Abs Lymphocytes 1.1 10^3/uL 1.0-4.8 Abs Monocytes 0.6 10^3/uL 0-0.8 Abs Eosinophils 0.1 10^3/uL 0-0.6 Abs Basophils 0.1 10^3/uL 0-0.2 Abs Nucleated RBC 0 10^3/uL Granulocyte % 67.1 % 38-83 Lymphocyte % 19.7 % Low 25-47 Monocyte % 9.9 % High 0-7 Eosinophil % 2.0 % 0-6 Basophil % 1.3 % 0-2 Nucleated Red Blood Cells % 0.2 Laboratory test finding 09/20/2017 Lactic Acid 0.8 mmol/L 0.5-2.0 1 Troponin I 0.00 ng/mL <0.04 Comp Metabolic Panel 09/20/2017 Sodium 140 mmol/L 135-145 Potassium 3.9 mmol/L 3.5-5.0 Chloride 105 mmol/L 101-111 Co2 Carbon Dioxide 27 mmol/L 22-32 Anion Gap 8 mmol/L 2-11 Glucose 102 mg/dL High 70-100 Blood Urea Nitrogen 27 mg/dL High 6-24 Creatinine 1.06 mg/dL High 0.51-0.95 BUN/Creatinine Ratio 25.5 High 8-20 Calcium 9.6 mg/dL 8.6-10.3 Total Protein 6.7 g/dL 6.4-8.9 Albumin 4.0 g/dL 3.2-5.2 Globulin 2.7 g/dL 2-4 Albumin/Globulin Ratio 1.5 1-3 Total Bilirubin 0.50 mg/dL 0.2-1.0 Alkaline Phosphatase 42 U/L 34-104 Alt 13 U/L 7-52 Ast 17 U/L 13-39 Egfr Non- 50.4 >60 Egfr 61.0 >60 2 Lipid Profile (Trig/Chol/HDL) 09/20/2017 Triglycerides 117 mg/dL 3 Cholesterol 194 mg/dL 4 HDL Cholesterol 72.2 mg/dL 5 LDL Cholesterol 98 mg/dL 6 Inr/Protime 09/20/2017 Inr 0.90 0.77-1.02 Laboratory test finding 09/20/2017 Partial Thrombo Time 29.6 seconds 26.0 -36.3 PTT Type & Screen 09/20/2017 Patient Blood Type O Positive Antibody Screen NEGATIVE Urinalysis Profile 09/20/2017 Urine Color Straw Urine Appearance Clear Urine Specific [place] 1.038 High 1.010-1.030 Urine pH 6.0 5-9 Urine Urobilinogen Negative Negative Urine Ketones Negative Negative Urine Protein Negative Negative Urine Leukocytes Trace Negative Urine Blood Negative Negative Urine Nitrite Negative Negative Urine Bilirubin Negative Negative Urine Glucose Negative Negative Urine White Blood Cell Trace(0-5/hpf) Absent Urine Red Blood Cell Trace(0-2/hpf) Absent Urine Bacteria Absent Absent Urine Squamous Epithelial Cell Present Absent Urine Culture And 09/20/2017 Urine Culture SEE RESULT BELOW 7 Sensitivities CBC Electronic Fma 08/27/2017 WBC 5.6 x10^3/UL 4.0-10.0 RBC 4.17 x10^6/UL 3.93-6.00 HGB 12.9 g/dL 12.0-17.0 HCT 38 % 35-50 MCV 92.1 fL 80.0-95.0 MCH 30.9 pg 25.6-32.2 MCHC 33.6 g/dL 32.2-36.0 RDW-CV 13.9 % 11.6-14.4 PLT 257 x10^3/UL 163-400 MPV 11.7 fL 9.4-12.4 Dai# 2.98 x10^3/UL 1.56-6.13 Lymph# 1.67 x10^3/UL 1.18-3.74 [place]ria# 0.68 x10^3/UL 0.24-0.82 Eos # 0.2 x10^3/UL 0.0-0.5 Baso # 0.07 x10^3/UL 0.01-0.08 Dai% 52.9 % 34.0-70.0 Lymph % 29.7 % 20.0-52.0 [place]% 12.1 % High 5.0-12.0 Eos% 3.9 % 0.7-7.0 Baso% 1.2 % 0.1-1.2 Comprehensive Metabolic Prof 08/27/2017 Sodium 140 mEq/L 134-149 Potassium 3.9 mEq/L 3.6-5.5 Chloride 104 mEq/L 94-112 Carbon Dioxide 26 mEq/L 21-32 Glucose 99 mg/dL 70-105 BUN 26 mg/dL 6-26 Creatinine 0.9 mg/dL 0.6-1.4 BUN/Creat Ratio 28.9 CALC 8.0-36.0 Calcium 9.9 mg/dL 8.6-10.2 Total Protein 6.7 g/dL 6.4-8.3 Albumin 4.5 g/dL 3.8-5.5 Globulin 2.2 g/dL 2.0-4.8 A/G Ratio 2.0 CALC 0.6-2.3 Alk. Phosphatase 47 U/L 30-110 Alt (SGPT) 22 U/L 7-35 Ast (Sgot) 26 U/L 5-34 Total Bilirubin 0.5 mg/dL 0.2-1.3 GFR Non- >60 ml/min/1.73m^ >=60 GFR >60 ml/min/1.73m^ >=60 Laboratory test finding 06/20/2017 C Reactive Protein < 1.00 mg/L < 5.00 8 CBC Auto Diff 06/20/2017 White Blood Count 4.7 10^3/uL 3.5-10.8 Red Blood Count 4.14 10^6/uL 4.0-5.4 Hemoglobin 13.0 g/dL 12.0-16.0 Hematocrit 39 % 35-47 Mean Corpuscular Volume 93 fL 80-97 Mean Corpuscular Hemoglobin 31 pg 27-31 Mean Corpuscular HGB Conc 34 g/dL 31-36 Red Cell Distribution Width 15 % 10.5-15 Platelet Count 217 10^3/uL 150-450 Mean Platelet Volume 10.3 um3 7.4-10.4 Abs Neutrophils 2.0 10^3/uL 1.5-7.7 Abs Lymphocytes 1.6 10^3/uL 1.0-4.8 Abs Monocytes 0.7 10^3/uL 0-0.8 Abs Eosinophils 0.3 10^3/uL 0-0.6 Abs Basophils 0.1 10^3/uL 0-0.2 Abs Nucleated RBC 0 10^3/uL Granulocyte % 43.7 % 38-83 Lymphocyte % 34.6 % 25-47 Monocyte % 14.4 % High 0-7 Eosinophil % 5.9 % 0-6 Basophil % 1.4 % 0-2 Nucleated Red Blood Cells % 0.1 Laboratory test finding 06/20/2017 Erythrocyte Sed Rate 12 mm/Hr 0-40 Comprehensive Metabolic Prof 05/08/2017 Sodium 143 mEq/L 134-149 Potassium 3.9 mEq/L 3.6-5.5 Chloride 103 mEq/L 94-112 Carbon Dioxide 28 mEq/L 21-32 Glucose 98 mg/dL 70-105 BUN 21 mg/dL 6-26 Creatinine 1.0 mg/dL 0.6-1.4 BUN/Creat Ratio 21.0 CALC 8.0-36.0 Calcium 10.0 mg/dL 8.6-10.2 Total Protein 6.4 g/dL 6.4-8.3 Albumin 4.3 g/dL 3.8-5.5 Globulin 2.1 g/dL 2.0-4.8 A/G Ratio 2.0 CALC 0.6-2.3 Alk. Phosphatase 37 U/L 30-110 Alt (SGPT) 20 U/L 7-35 Ast (Sgot) 22 U/L 5-34 Total Bilirubin 0.5 mg/dL 0.2-1.3 GFR Non- 57 ml/min/1.73m^ Low >=60 GFR >60 ml/min/1.73m^ >=60 Lipid Profile 05/08/2017 Cholesterol 202 mg/dL High 120-200 Triglycerides 89 mg/dL 30-200 HDL Cholesterol 82 mg/dL 30-85 LDL (Calculated) 102 CALC 0-129 VLDL Cholesterol 18 mg/dL 0-50 HDL Risk Factor 2.5 CALC 0.0-4.4 CBC Electronic Fma 05/08/2017 WBC 5.5 x10^3/UL 4.0-10.0 RBC 4.27 x10^6/UL 3.93-6.00 HGB 13.1 g/dL 12.0-17.0 HCT 39 % 35-50 MCV 91.6 fL 80.0-95.0 MCH 30.7 pg 25.6-32.2 MCHC 33.5 g/dL 32.2-36.0 RDW-CV 14.2 % 11.6-14.4 PLT 246 x10^3/UL 163-400 MPV 10.5 fL 9.4-12.4 Dai# 2.91 x10^3/UL 1.56-6.13 Lymph# 1.47 x10^3/UL 1.18-3.74 [place]ria# 0.64 x10^3/UL 0.24-0.82 Eos # 0.4 x10^3/UL 0.0-0.5 Baso # 0.05 x10^3/UL 0.01-0.08 Dai% 53.4 % 34.0-70.0 Lymph % 26.9 % 20.0-52.0 Camb[place]% 11.7 % 5.0-12.0 Eos% 7.0 % 0.7-7.0 Baso% 0.9 % 0.1-1.2 CBC Auto Diff 08/01/2016 White Blood Count 9.0 10^3/uL 3.5-10.8 Red Blood Count 3.46 10^6/uL Low 4.0-5.4 Hemoglobin 10.6 g/dL Low 12.0-16.0 Hematocrit 32 % Low 35-47 Mean Corpuscular Volume 93 fL 80-97 Mean Corpuscular Hemoglobin 31 pg 27-31 Mean Corpuscular HGB Conc 33 g/dL 31-36 Red Cell Distribution Width 16 % High 10.5-15 Platelet Count 386 10^3/uL 150-450 Mean Platelet Volume 8 um3 7.4-10.4 Abs Neutrophils 7.2 10^3/uL 1.5-7.7 Abs Lymphocytes 0.9 10^3/uL Low 1.0-4.8 Abs Monocytes 0.7 10^3/uL 0-0.8 Abs Eosinophils 0.1 10^3/uL 0-0.6 Abs Basophils 0.1 10^3/uL 0-0.2 Abs Nucleated RBC 0 10^3/uL Granulocyte % 80.3 % 38-83 Lymphocyte % 9.8 % Low 25-47 Monocyte % 8.0 % 1-9 Eosinophil % 0.9 % 0-6 Basophil % 1.0 % 0-2 Nucleated Red Blood Cells % 0 Laboratory test finding 08/01/2016 Inr/Protime 1.87 High 0.89-1.11 Partial Thrombo Time PTT 34.6 seconds 26.0-36.3 Laboratory test 08/01/2016 Urine Culture And SEE RESULT BELOW 9 finding Sensitivities Laboratory test 08/01/2016 Lactic Acid 1.0 mmol/L 0.5-2.0 10 finding Comp Metabolic Panel 08/01/2016 Sodium 139 mmol/L 133-145 Potassium 4.0 mmol/L 3.5-5.0 Chloride 106 mmol/L 101-111 Co2 Carbon Dioxide 27 mmol/L 22-32 Anion Gap 6 mmol/L 2-11 Glucose 101 mg/dL High 70-100 Blood Urea Nitrogen 25 mg/dL High 6-24 Creatinine 0.83 mg/dL 0.51-0.95 BUN/Creatinine Ratio 30.1 High 8-20 Calcium 9.2 mg/dL 8.6-10.3 Total Protein 6.4 g/dL 6.4-8.9 Albumin 3.6 g/dL 3.2-5.2 Globulin 2.8 g/dL 2-4 Albumin/Globulin Ratio 1.3 1-3 Total Bilirubin 0.40 mg/dL 0.2-1.0 Alkaline Phosphatase 41 U/L 34-104 Alt 28 U/L 7-52 Ast 28 U/L 13-39 Egfr Non- 67.0 >60 Egfr 86.2 >60 11 Urinalysis Profile 08/01/2016 Urine Color Yellow Urine Appearance Cloudy Urine Specific [place] 1.015 1.010-1.030 Urine pH 6.0 5-9 Urine Urobilinogen Negative Negative Urine Ketones 1+ Negative Urine Protein Negative Negative Urine Leukocytes 3+ Negative Urine Blood Negative Negative Urine Nitrite Negative Negative Urine Bilirubin Negative Negative Urine Glucose Negative Negative Urine White Blood Cell Trace(0-5/hpf) Absent Urine Red Blood Cell 1+(3-5/hpf) Absent Urine Bacteria Absent Absent Urine Squamous Epithelial Cell Present Absent Urine Transitional Epithelial Present Absent Urine Hyaline Casts Present Absent Laboratory test finding 08/01/2016 Magnesium 2.3 mg/dL 1.9-2.7 Troponin I 0.00 ng/mL <0.04 12 TSH (Thyroid Stim Horm) 0.93 mcIU/mL 0.34-5.60 Type & Screen 07/04/2016 Patient Blood Type O Positive Antibody Screen NEGATIVE Laboratory test finding 07/04/2016 Partial Thrombo Time 29.4 seconds 26.0 -36.3 PTT Inr/Protime 07/04/2016 Inr 0.90 0.89-1.11 Urinalysis Profile 07/04/2016 Urine Color Yellow Urine Appearance Cloudy Urine Specific [place] 1.020 1.010-1.030 Urine pH 7.0 5-9 Urine Urobilinogen Negative Negative Urine Ketones Negative Negative Urine Protein Negative Negative Urine Leukocytes 1+ Negative Urine Blood Negative Negative * * Negative 13 Urine Nitrite Negative Negative Urine Bilirubin Negative Negative Urine Glucose Negative Negative Urine White Blood Cell 1+(6-10/hpf) Absent Urine Red Blood Cell Absent Absent Urine Bacteria Absent Absent Urine Squamous Epithelial Cell Present Absent Urine Renal Epithelial Cells Present Absent Laboratory test 07/04/2016 Urine Culture And SEE RESULT BELOW 14 finding Sensitivities Comp Metabolic Panel 07/04/2016 Sodium 139 mmol/L 133-145 Potassium 3.7 mmol/L 3.5-5.0 Chloride 105 mmol/L 101-111 Co2 Carbon Dioxide 30 mmol/L 22-32 Anion Gap 4 mmol/L 2-11 Glucose 108 mg/dL High 70-100 Blood Urea Nitrogen 27 mg/dL High 6-24 Creatinine 0.92 mg/dL 0.51-0.95 BUN/Creatinine Ratio 29.3 High 8-20 Calcium 9.7 mg/dL 8.6-10.3 Total Protein 6.1 g/dL Low 6.4-8.9 Albumin 3.9 g/dL 3.2-5.2 Globulin 2.2 g/dL 2-4 Albumin/Globulin Ratio 1.8 1-3 Total Bilirubin 0.30 mg/dL 0.2-1.0 Alkaline Phosphatase 36 U/L 34-104 Alt 14 U/L 7-52 Ast 19 U/L 13-39 Egfr Non- 59.5 >60 Egfr 76.5 >60 15 CBC No Diff 07/04/2016 White Blood Count 6.2 10^3/uL 3.5-10.8 Red Blood Count 4.22 10^6/uL 4.0-5.4 Hemoglobin 12.8 g/dL 12.0-16.0 Hematocrit 39 % 35-47 Mean Corpuscular Volume 92 fL 80-97 Mean Corpuscular Hemoglobin 30 pg 27-31 Mean Corpuscular HGB Conc 33 g/dL 31-36 Red Cell Distribution Width 15 % 10.5-15 Platelet Count 189 10^3/uL 150-450 Mean Platelet Volume 10 um3 7.4-10.4 Complete Blood Count 11/09/2015 WBC 4.8 x10^3/UL 3.6-9.6 RBC 4.14 x10^6/UL 3.90-5.70 HGB 13.1 g/dL 12.1-17.2 HCT 39 % 36-50 MCV 94.0 fL 82.2-97.4 MCH 31.5 pg 27.6-33.3 MCHC 33.5 g/dL 33.0-35.5 RDW 14.2 % High 11.6-13.7 PLT 227 x10^3/UL 150-400 MPV 8.0 fL 7.4-10.4 Gran # 3.2 x10^3/UL 1.5-7.2 Lymph# 1.3 x10^3/UL 0.7-4.9 Cambria# 0.3 x10^3/UL 0.1-0.9 Gran % 66.2 % 42.2-75.2 Lymph % 27.5 % 20.5-51.1 [place]% 6.3 % 1.7-9.3 Comprehensive Metabolic Prof 11/09/2015 Sodium 143 mEq/L 134-149 Potassium 3.8 mEq/L 3.6-5.5 Chloride 106 mEq/L 94-112 Carbon Dioxide 24 mEq/L 21-32 Glucose 91 mg/dL 70-105 BUN 21 mg/dL 6-26 Creatinine 0.8 mg/dL 0.6-1.4 BUN/Creat Ratio 26.3 CALC 8.0-36.0 Calcium 9.1 mg/dL 8.6-10.2 Total Protein 6.5 g/dL 6.4-8.3 Albumin 3.9 g/dL 3.8-5.5 Globulin 2.6 g/dL 2.0-4.8 A/G Ratio 1.5 CALC 0.6-2.3 Alk. Phosphatase 42 U/L 30-110 Alt (SGPT) 23 U/L 7-35 Ast (Sgot) 27 U/L 5-34 Total Bilirubin 0.4 mg/dL 0.2-1.3 GFR Non- >60 ml/min/1.73m^ >=60 GFR >60 ml/min/1.73m^ >=60 Lipid Profile 11/09/2015 Cholesterol 163 mg/dL 120-200 Triglycerides 52 mg/dL 30-200 HDL Cholesterol 80 mg/dL 30-85 LDL (Calculated) 73 CALC 0-129 VLDL Cholesterol 10 mg/dL 0-50 HDL Risk Factor 2.0 CALC 0.0-4.4 CBC Electronic ([facility]ma) 11/03/2014 WBC 6.4 3.6-9.6 RBC 4.24 3.90-5.70 Hemoglobin ([facility]ma/CMC/CTX) 13.4 g/dL 12.1 - 17.2 Hematocrit (Fma/CMC/CTX) 39.8 % 36.1 - 50.3 Platelets 231 10^3/ul 150-400 Lymph% 24.2 % 17.0-48.0 Mixed% 10.0 Neutrophils % 65.8 Mean Corpuscular Vol 94 82.2-97.4 Mean Corpuscular Hemoglobin 31.7 27.6-33.3 Mean Corpuscular Hemo Concen 33.8 32.0-36.0 RDW 14.0 High 11.6-13.7 Mean Platelet Volume 7.2 5.5-11.0 Comprehensive Metabolic Prof 11/03/2014 Sodium 141 mEq/L 134-149 Potassium 3.6 mEq/L 3.6-5.5 Chloride 103 mEq/L 94-112 Carbon Dioxide 27 mEq/L 21-32 Glucose 96 mg/dL 70-105 BUN 19 mg/dL 6-26 Creatinine 1.0 mg/dL 0.6-1.4 BUN/Creat Ratio 19.0 CALC 8.0-36.0 Calcium 9.5 mg/dL 8.6-10.2 Total Protein 6.4 g/dL 6.4-8.3 Albumin 4.1 g/dL 3.8-5.5 Globulin 2.3 g/dL 2.0-4.8 A/G Ratio 1.8 CALC 0.6-2.3 Alk. Phosphatase 38 U/L 30-110 Alt (SGPT) 14 U/L 7-35 Ast (Sgot) 17 U/L 5-34 Total Bilirubin 0.5 mg/dL 0.2-1.3 GFR Non- 58 ml/min/1.73m^ Low >=60 GFR >60 ml/min/1.73m^ >=60 Lipid Profile 11/03/2014 Cholesterol 205 mg/dL High 120-200 Triglycerides 72 mg/dL 30-200 HDL Cholesterol 88 mg/dL High 30-85 LDL (Calculated) 103 CALC 0-129 VLDL Cholesterol 14 mg/dL 0-50 HDL Risk Factor 2.3 CALC 0.0-4.4 Complete Blood Count 10/21/2013 WBC 5.4 x10^3/UL 3.6-9.6 RBC 4.24 x10^6/UL 3.90-5.70 HGB 13.3 g/dL 12.1-17.2 HCT 40 % 36-50 MCV 93.0 fL 82.2-97.4 MCH 31.5 pg 27.6-33.3 MCHC 33.7 g/dL 33.0-35.5 RDW 12.5 % 11.6-13.7 PLT 243 x10^3/UL 150-400 MPV 7.2 fL Low 7.4-10.4 Gran # 3.5 x10^3/UL 1.5-7.2 Lymph# 1.6 x10^3/UL 0.7-4.9 [place]# 0.3 x10^3/UL 0.1-0.9 Gran % 63.7 % 42.2-75.2 Lymph % 29.7 % 20.5-51.1 [place]% 6.6 % 1.7-9.3 Comprehensive Metabolic Prof 10/21/2013 Sodium 139 mEq/L 134-149 Potassium 3.9 mEq/L 3.6-5.5 Chloride 100 mEq/L 94-112 Carbon Dioxide 25 mEq/L 21-32 Glucose 95 mg/dL 70-105 BUN 20 mg/dL 6-26 Creatinine 1.1 mg/dL 0.6-1.4 BUN/Creat Ratio 18.2 CALC 8.0-36.0 Calcium 9.6 mg/dL 8.6-10.2 Total Protein 7.4 g/dL 6.3-8.1 Albumin 4.8 g/dL 3.8-5.5 Globulin 2.6 g/dL 2.0-4.8 A/G Ratio 1.8 CALC 0.6-2.3 Alk. Phosphatase 43 U/L 30-110 Alt (SGPT) 35 U/L 7-35 Ast (Sgot) 22 U/L 5-34 Total Bilirubin 0.5 mg/dL 0.2-1.3 Lipid Profile 10/21/2013 Cholesterol 214 mg/dL High 120-200 Triglycerides 66 mg/dL 30-200 HDL Cholesterol 86 mg/dL High 30-85 16 LDL (Calculated) 115 CALC 0-129 VLDL Cholesterol 13 mg/dL 0-50 HDL Risk Factor 2.5 CALC 0.0-4.4 Laboratory test finding 10/21/2013 LDL, Direct 83 mg/dL 0-130 Surgical Pathology 10/14/2013 S RUN DATE: <SEE NOTE> Lyme Igg/M W/RFX West 11/07/2012 Lyme IgG/IgM Ab 3.19 index High 0.00- 0.90 18 Lyme Ab Interp.,Eia Positive Lyme Disease Ab, Quant, IgM 1.18 index High 0.00-0.90 19 Lyme Ab IgM Interp., Eia Positive Ua - Micro ([facility]ma) 11/07/2012 Appearance CLEAR Color YELLOW Glucose, Urine ([facility]ma/CMC/CTX) NEG Bilirubin NEG Ketones NEG SP Grav 1.015 Blood NEG PH 5.5 Protein NEG Urobil 0.2 Nitrite NEG Leukocytes ([facility]ma/CMC/[facility]) TRACE WBC ([facility]ma,[facility]) 3-5 Mucus ([facility]ma/CBC/[facility]) SM AMT /Lpf Epith FEW /Lpf Bacteria TRACE /Hpf Lyme Western Blot Ser 11/07/2012 IgG P93 Ab. Absent IgG P66 Ab. Absent IgG P58 Ab. Absent IgG P45 Ab. Absent IgG P41 Ab. Absent IgG P39 Ab. Absent IgG P30 Ab. Absent IgG P28 Ab. Absent IgG P23 Ab. Absent IgG P18 Ab. Absent Lyme IgG WB Interp. Negative 20 IgM P41 Ab. Absent IgM P39 Ab. Absent IgM P23 Ab. Present Lyme IgM WB Interp. Negative 21 Lyme Western Blot 08/26/2012 Lyme Disease IgG Ab WB Negative Negative Lyme Disease IgG Bands Present p41, kDa Lyme Disease IgM Ab WB Negative Negative Lyme Disease IgM Bands Present p41, kDa Lyme Disease Interpretation See Comment 22 Laboratory test finding 08/26/2012 Lyme Disease Serology Positive Negative 23 Lipid Profile 04/16/2012 Cholesterol 188 mg/dL 120-200 HDL 64 mg/dL 30-85 Triglycerides 58 mg/dL 30-200 HDL Risk Factor 3.0 CALC 0.0-4.4 LDL (Calculated) 113 CALC 0-129 VLDL (Calculated) 12 mg/dL 0-50 Comprehensive Metabolic Prof 04/16/2012 Albumin 4.7 g/dL 3.8-5.5 Alk. Phos. 39 U/L 30-110 Alt (SGPT) 19 U/L 7-35 Ast (Sgot) 25 U/L 5-34 BUN 19 mg/dL 6-26 Calcium 9.9 mg/dL 8.6-10.2 Chloride 105 mEq/L 94-112 Creatinine 1.0 mg/dL 0.6-1.4 Carbon Dioxide 25 mEq/L 21-32 Glucose 104 mg/dL 70-105 Sodium 142 mEq/L 134-149 Total Bilirubin 0.5 mg/dL 0.2-1.3 Total Protein 6.8 g/dL 6.3-8.1 Potassium 3.8 mEq/L 3.6-5.5 Globulin 2.0 g/dL 2.0-4.8 A/G Ratio 2.3 Calc 0.6-2.3 BUN/Creat Ratio 18.5 Calc 8.0-36.0 Comprehensive Metabolic Prof 04/11/2011 Albumin 4.4 g/dL 3.8-5.5 Alk. Phos. 33 U/L 30-110 Alt (SGPT) 16 U/L 7-35 Ast (Sgot) 22 U/L 5-34 BUN 23 mg/dL 6-26 Calcium 9.3 mg/dL 8.6-10.2 Chloride 101 mEq/L 94-112 Creatinine 0.9 mg/dL 0.6-1.4 Carbon Dioxide 22 mEq/L 21-32 Glucose 81 mg/dL 70-105 Sodium 137 mEq/L 134-149 Total Bilirubin 0.5 mg/dL 0.2-1.3 Total Protein 6.5 g/dL 6.3-8.1 Potassium 3.7 mEq/L 3.6-5.5 Globulin 2.1 g/dL 2.0-4.8 A/G Ratio 2.1 Calc 0.6-2.2 BUN/Creat Ratio 25.7 Calc 8.0-36.0 Lipid Profile 04/11/2011 Cholesterol 179 mg/dL 120-200 HDL 76 mg/dL 30-85 Triglycerides 48 mg/dL 30-200 HDL Risk Factor 2.4 CALC 0.0-4.0 LDL (Calculated) 94 CALC 0-129 VLDL (Calculated) 10 mg/dL 0-50 Laboratory test finding 08/24/2010 B12 867 pg/mL 230-1050 TSH 1.49 mIU/L 0.50-6.00 Free T4 1.09 ng/dL 0.75-1.54 Laboratory test finding 08/24/2010 Glucose Random Whole Blood 97 60-105 Laboratory test finding 01/18/2010 T Transglutaminase Igg <2 U/mL 0-5 24 CBC ([facility]ma) 01/18/2010 WBC 6.4 3.6-9.6 RBC 4.31 3.90-5.70 Hemoglobin ([facility]ma/CMC/CTX) 13.3 g/dL 12.1 - 17.2 Hematocrit ([facility]ma/CMC/CTX) 39.8 % 36.1 - 50.3 Platelets 285 10^3/ul 150-400 Lymph% 21.8 20.5-51.1 Mixed% 5.0 Neutrophils % 73.2 Mean Corpuscular Vol 92 82.2-97.4 Mean Corpuscular Hemoglobin 30.9 27.6-33.3 Mean Corpuscular Hemo Concen 33.5 33.0-36.0 RDW 13.0 11.6-13.7 Mean Platelet Volume 7.3 Low 7.4-10.4 Laboratory test finding 01/18/2010 Sed Rate ([facility]ma/CMC/[facility]) 19 Gliadin Igg/Iga AB 01/18/2010 Deamidated Gliadin Abs, IgA 4 units 0-19 25 Deamidated Gliadin Abs, IgG 2 units 0-19 26 Lipid Profile 09/23/2009 Cholesterol 179 mg/dL 120-200 HDL 67 mg/dL 30-85 Triglycerides 51 mg/dL 30-200 HDL Risk Factor 2.7 CALC Low 4.2-7.0 LDL (Calculated) 101 CALC 0-129 VLDL (Calculated) 10 mg/dL 0-50 CBC With Manual Diff 08/31/2009 White Blood Count 4.3 CUMM Low 4.8-10.8 Red Cell Count 4.13 CUMM Low 4.2-5.4 Hemoglobin 13.2 g/dL 12.0-16.0 Hematocrit 39 % 35-47 Mean Corpuscular Volume 94 um3 79-97 Mean Corpuscular Hemoglob 32 pg High 27-31 Mean Corpuscular HGB Cone 34 g/dL 32-36 Redcell Distribution WDTH 14 % 10.5-15 Platelet Count 220 CUMM 150-450 Mean Platelet Volume 9.1 um3 7.4-10.4 Polysegmented Neutrophil 46 % 38-83 Lymphocyte 37 % 25-47 Monocyte 14 % High 0-13 Eosinophil 2 % 0-6 Atypical Lymph 1 % 0-6 Absolute Neutrophil Count 1.9 Anisocytosis SLIGHT Comp Metabolic Panel 08/31/2009 Sodium 142 mmol/L 135-145 Potassium 3.9 mmol/L 3.5-5.0 Chloride 106 mmol/L 101-111 Co2 (Carbon Dioxide) 29.0 mmol/L 22-32 Anion Gap 7.0 mmol/L 2-11 27 Glucose 80 mg/dL 70-100 28 BUN 17 mg/dL 6-24 Creatinine 0.80 mg/dL 0.50-1.40 One Over Creatinine 1.20 BUN/Creatinine Ratio 21.3 High 8-20 Calcium 9.8 mg/dL 8.1-9.9 29 Total Protein 6.5 GM/DL 6.2-8.1 Albumin 4.1 GM/DL 3.2-5.2 Globulin 2.4 GM/DL 2-4 Albumin/Globulin Ratio 1.7 1-3 Bilirubin Total 0.8 mg/dL 0.4-1.5 30 Alkaline Phosphatase 45 U/L 30-110 Alt (SGPT) 19 U/L 14-54 Ast (Sgot) 23 U/L 12-42 eGFR Non- 75.8 > 60 eGFR 91.7 > 60 31 Laboratory test finding 08/31/2009 CA 27-29 14.0 U/mL <=38.0 32 Laboratory test finding 07/31/2009 BUN 17 mg/dL 6-24 Laboratory test finding 07/08/2009 TSH 1.24 mIU/L 0.50-6.00 Free T4 1.28 ng/dL 0.75-1.54 CBC (Fma) 07/08/2009 WBC 4.8 3.6-9.6 RBC 4.35 3.90-5.70 Hemoglobin (Fma/CMC/CTX) 13.3 g/dL 12.1 - 17.2 Hematocrit (Fma/CMC/CTX) 42.0 % 36.1 - 50.3 Mean Corpuscular Vol 96.6 82.2-97.4 Mean Corpuscular Hemaglobin 30.6 27.6-33.3 Mean Corpuscular Hemo Concen 31.7 Low 33.0-36.0 Platelets 196 10^3/ul 150-400 Lymph% 26.2 20.5-51.1 Mixed% 9.4 Neutrophils % 64.4 RDW 14.7 High 11.6-13.7 Mean Platelet Volume 12.3 High 7.4-10.4 Laboratory test finding 07/08/2009 Inr (Fma) 1.0 0.9-1.1 Comp Metabolic Panel 02/19/2009 Sodium 140 mmol/L 135-145 Potassium 3.4 mmol/L Low 3.5-5.0 Chloride 105 mmol/L 101-111 Co2 (Carbon Dioxide) 30.0 mmol/L 22-32 Anion Gap 5.0 mmol/L 2-11 33 Glucose 91 mg/dL 70-100 34 BUN 16 mg/dL 6-24 Creatinine 0.80 mg/dL 0.50-1.40 One Over Creatinine 1.20 BUN/Creatinine Ratio 20.0 8-20 Calcium 9.4 mg/dL 8.1-9.9 35 Total Protein 5.8 GM/DL Low 6.2-8.1 Albumin 3.6 GM/DL 3.2-5.2 Globulin 2.2 GM/DL 2-4 Albumin/Globulin Ratio 1.6 1-3 Bilirubin Total 0.6 mg/dL 0.4-1.5 36 Alkaline Phosphatase 52 U/L 30-110 Alt (SGPT) 17 U/L 14-54 Ast (Sgot) 23 U/L 12-42 eGFR Non- 75.8 > 60 eGFR 91.7 > 60 37 CBC With Manual Diff 02/19/2009 White Blood Count 6.5 CUMM 4.8-10.8 Red Cell Count 4.22 CUMM 4.2-5.4 Hemoglobin 13.1 g/dL 12.0-16.0 Hematocrit 40 % 35-47 Mean Corpuscular Volume 94 um3 79-97 Mean Corpuscular Hemoglob 31 pg 27-31 Mean Corpuscular HGB Cone 33 g/dL 32-36 Redcell Distribution WDTH 14 % 10.5-15 Platelet Count 232 CUMM 150-450 Mean Platelet Volume 9.2 um3 7.4-10.4 Polysegmented Neutrophil 63 % 38-83 Band Neutrophil 3 % 0-8 Lymphocyte 30 % 25-47 Monocyte 4 % 0-13 Absolute Neutrophil Count 4.2 RBC Morphology NORMAL Laboratory test finding 02/19/2009 CA 27-29 14.1 U/mL <=38.0 38 Lipid Profile 10/01/2008 Cholesterol 176 mg/dL 120-200 39 HDL 74 mg/dL 30-85 39 Triglycerides 48 mg/dL 30-200 39 HDL Risk Factor 2.4 CALC Low 4.2-7.0 39 LDL (Calculated) 93 CALC 0-129 39 VLDL (Calculated) 10 mg/dL 0-50 39 Comp Metabolic Panel 08/21/2008 Sodium 144 mmol/L 135-145 Potassium 4.1 mmol/L 3.5-5.0 Chloride 108 mmol/L 101-111 Co2 (Carbon Dioxide) 29.0 mmol/L 22-32 Anion Gap 7.0 mmol/L 2-11 40 Glucose 93 mg/dL 70-100 41 BUN 15 mg/dL 6-24 Creatinine 1.00 mg/dL 0.50-1.40 One Over Creatinine 1.00 BUN/Creatinine Ratio 15.0 8-20 Calcium 9.9 mg/dL 8.1-9.9 42 Total Protein 6.5 GM/DL 6.2-8.1 Albumin 4.0 GM/DL 3.2-5.2 Globulin 2.5 GM/DL 2-4 Albumin/Globulin Ratio 1.6 1-3 Bilirubin Total 0.6 mg/dL 0.4-1.5 43 Alkaline Phosphatase 51 U/L 30-110 Alt (SGPT) 18 U/L 14-54 Ast (Sgot) 23 U/L 12-42 CBC With Manual Diff 08/21/2008 White Blood Count 4.8 CUMM 4.8-10.8 Red Cell Count 4.42 CUMM 4.2-5.4 Hemoglobin 13.9 g/dL 12.0-16.0 Hematocrit 40 % 35-47 Mean Corpuscular Volume 91 um3 79-97 Mean Corpuscular Hemoglob 31 pg 27-31 Mean Corpuscular HGB Cone 34 g/dL 32-36 Redcell Distribution WDTH 13 % 10.5-15 Platelet Count 259 CUMM 150-450 Mean Platelet Volume 8.9 um3 7.4-10.4 Polysegmented Neutrophil 65 % 38-83 Lymphocyte 27 % 25-47 Monocyte 6 % 0-13 Atypical Lymph 2 % 0-6 Absolute Neutrophil Count 3.1 Anisocytosis 1+ Laboratory test finding 08/21/2008 CA 27-29 9.35 U/ml 3.5-38.6 44 Lipid Profile 12/03/2007 Cholesterol 195 mg/dL 120-200 39 HDL 76 mg/dL 30-85 39 Triglycerides 65 mg/dL 30-200 39 HDL Risk Factor 2.6 CALC Low 4.2-7.0 39 LDL (Calculated) 106 CALC 0-129 39 VLDL (Calculated) 13 mg/dL 0-50 39 Comp Metabolic Panel 08/13/2007 Sodium 140 mmol/L 135-145 Potassium 3.9 mmol/L 3.5-5.0 Chloride 105 mmol/L 101-111 Co2 (Carbon Dioxide) 30.0 mmol/L 22-32 Anion Gap 5.0 mmol/L 2-11 45 Glucose 107 mg/dL High 70-105 BUN 17 mg/dL 6-24 Creatinine 1.0 mg/dL 0.5-1.4 One Over Creatinine 1.00 BUN/Creatinine Ratio 17.0 8-20 Calcium 8.9 mg/dL 8.7-10.2 Total Protein 5.8 GM/DL Low 6.2-8.1 Albumin 3.7 GM/DL 3.2-5.2 Globulin 2.1 GM/DL 2-4 Albumin/Globulin Ratio 1.8 1-3 Bilirubin Total 0.6 mg/dL 0.4-1.5 Alkaline Phosphatase 46 U/L 30-110 Alt (SGPT) 31 U/L 14-54 Ast (Sgot) 26 U/L 12-42 CBC With Manual Diff 08/13/2007 White Blood Count 4.4 CUMM Low 4.8-10.8 Red Cell Count 3.96 CUMM Low 4.2-5.4 Hemoglobin 12.3 g/dL 12.0-16.0 Hematocrit 36 % 35-47 Mean Corpuscular Volume 91 um3 79-97 Mean Corpuscular Hemoglob 31 pg 27-31 Mean Corpuscular HGB Cone 34 g/dL 32-36 Redcell Distribution WDTH 14 % 10.5-15 Platelet Count 241 CUMM 150-450 Mean Platelet Volume 10.1 um3 7.4-10.4 Polysegmented Neutrophil 44 % 38-83 Band Neutrophil 1 % 0-8 Lymphocyte 31 % 5-47 Monocyte 15 % High 0-13 Eosenophil 5 % 0-6 Basophil 3 % High 0-2 Atypical Lymph 1 % 0-6 Absolute Neutrophil Count 1.9 Anisocytosis SLIGHT Platelet Evaluation LARGE Laboratory test finding 08/13/2007 CA 27-29 9.08 U/ml 3.5-38.6 46 Comp Metabolic Panel 01/08/2007 One Over Creatinine 1.11 Anion Gap 7.0 mmol/L 2-11 47 Albumin/Globulin Ratio 1.4 1-3 Albumin 3.9 GM/DL 3.2-5.2 Alkaline Phosphatase 48 U/L 30-110 Alt (SGPT) 23 U/L 14-54 Ast (Sgot) 25 U/L 12-42 BUN 19 mg/dL 6-24 Calcium 9.4 mg/dL 8.7-10.2 Chloride 101 mmol/L 101-111 Co2 (Carbon Dioxide) 30.0 mmol/L 22-32 Globulin 2.8 GM/DL 2-4 Glucose 86 mg/dL 70-105 Potassium 4.0 mmol/L 3.5-5.0 Sodium 138 mmol/L 135-145 Bilirubin Total 0.5 mg/dL 0.4-1.5 Total Protein 6.7 GM/DL 6.2-8.1 BUN/Creatinine Ratio 21.1 High 8-20 Creatinine 0.9 mg/dL 0.5-1.4 Laboratory test finding 01/08/2007 CA 27-29 5.90 U/ml 3.5-38.6 48 Comp Metabolic Panel 07/05/2006 One Over Creatinine 1.11 Anion Gap 7.0 mmol/L 2-11 49 Albumin/Globulin Ratio 1.5 1-3 Albumin 3.8 GM/DL 3.2-5.2 Alkaline Phosphatase 45 U/L 30-110 Alt (SGPT) 19 U/L 14-54 Ast (Sgot) 19 U/L 12-42 BUN 21 mg/dL 6-24 Calcium 9.1 mg/dL 8.7-10.2 Chloride 107 mmol/L 101-111 Co2 (Carbon Dioxide) 29.0 mmol/L 22-32 Globulin 2.6 GM/DL 2-4 Glucose 111 mg/dL High 70-105 Potassium 3.8 mmol/L 3.5-5.0 Sodium 143 mmol/L 135-145 Bilirubin Total 0.6 mg/dL 0.4-1.5 Total Protein 6.4 GM/DL 6.2-8.1 BUN/Creatinine Ratio 23.3 High 8-20 Creatinine 0.9 mg/dL 0.5-1.4 CBC With Manual Diff 07/05/2006 RBC Morphology NORMAL Absolute Neutrophil Count 3.1 Atypical Lymph 2 % 0-6 Eosenophil 3 % 0-6 Lymphocyte 29 % 5-47 Monocyte 5 % 0-13 Mean Platelet Volume 8.6 um3 7.4-10.4 Polysegmented Neutrophil 61 % 38-83 Redcell Distribution WDTH 14 % 10.5-15 Hemogram 07/05/2006 White Blood Count 5.2 CUMM 4.8-10.8 Hematocrit 38 % 35-47 Hemoglobin 13.2 g/dL 12.0-16.0 Mean Corpuscular HGB Cone 35 g/dL 32-36 Mean Corpuscular Hemoglob 31 pg 27-31 Mean Corpuscular Volume 89 um3 79-97 Platelet Count 260 CUMM 150-450 Red Cell Count 4.23 CUMM 4.2-5.4 Laboratory test 07/05/2006 CA 27-29 7 U/ML 3.5-38.6 50 finding Routine Concentrate 03/23/2006 O P: Giardia/Crypto Giardia and cryp 51 (O&P) Screen <SEE NOTE> Laboratory test 03/23/2006 Ova Parasite Concen NO OVA PARASIT 52 finding - Full <SEE NOTE> Lipid Profile ([facility]) 01/24/2006 Cholesterol 175 mg/dL 120-200 Female ([facility]) Triglyceride 64 mg/dL 30-200 HDL-Chol 60 mg/dL 30-85 LDL, Calculated ([facility]) 102 CALC 0-129 VLDL 13 0-50 HDL Risk Factor ([facility]) 2.9 CALC Low 4.2-7.0 Laboratory test finding 01/24/2006 Ferritin ([facility]) 39 NG/ML 6- 115 Lipid Profile ([facility]) 08/08/2005 Cholesterol ([facility]) 198 mg/dL 120-200 Female Triglyceride 52 mg/dL 30-200 HDL-Chol 71 mg/dL 30-85 LDL, Calculated ([facility]) 116 CALC 0-129 LDL Direct (/[facility]) - mg/dL 0-130 VLDL 10 0-50 HDL Risk Factor ([facility]) 2.8 CALC Low 4.2-7.0 Laboratory test 05/05/2005 [facility] CA27-29;CMP;LDH;CBC See Image finding Report Laboratory test 12/12/2004 [facility] LIVER FUNCTION See Image finding Report Comp Metabolic ([facility]) 07/26/2004 Glucose, Serum 95 mg/dL 70-105 Female ([facility]/CTX) BUN ([facility]) 24 mg/dL 6-26 Creatinine, Serum 1.1 mg/dL 0.6-1.4 BUN/Creatinin Ratio 22.3 8.0-36 Sodium 146 134-149 Potassium 4.6 3.6-5.5 Chloride 100 mEq/L 94-112 Co2 28 21-32 Calcium ([facility]) 10.1 mg/dL 8.6-10.2 Total Protein 7.2 g/dL 6.3-8.1 Albumin ([facility]) 4.4 3.8-5.5 Globulin 2.8 2.0-4.8 A/G Ratio (A/G Ratio) 1.5 0.6-2.2 Alkaline Phosphatase (F/C/CTX) 51 U/L 30-110 Alt (SGPT) ([facility]) 17 7-35 Ast (Sgot) ([facility]) 17 U/mL 5-34 Bilirubin, Total 0.6 mg/dL 0.2-1.3 Lipid Profile ([facility]) Female 07/26/2004 Cholesterol 210 mg/dL High 120-200 Triglyceride 71 mg/dL 30-200 HDL-Chol 67 mg/dL 30-85 LDL, Calculated ([facility]) 129 CALC 0-129 LDL, Direct - mg/dL 0-130 VLDL 14 0-50 HDL Risk Factor (a) 32 CALC High 4.2-7.0 Comp Metabolic ([facility]) 07/07/2003 Glucose, Serum ([facility]) 85 mg/dL 70- 118 BUN ([facility]) 19 mg/dL 6-26 Creatinine (a/[facility]/CTX) 0.9 mg/dL 0.6-1.4 BUN/Creatinin Ratio 20.9 8.0-36 Sodium 140 134-149 Potassium 3.9 3.6-5.5 Chloride 101 mEq/L 94-112 Co2 28 21-32 Calcium ([facility]) 10.0 mg/dL 8.6-10.0 Total Protein 6.8 g/dL 6.3-8.1 Albumin (a/[facility]) 4.6 3.8-5.5 Globulin 2.2 2.0-4.8 A/G Ratio ([facility]) 2.0 0.6-2.2 Alkaline Phosphatase (F/C/CTX) 40 U/L 30-110 Alt (SGPT) 18 10-40 Ast (Sgot) (a/[facility]) 18 U/mL 5-34 Bilirubin, Total 0.5 mg/dL 0.2-1.3 Lipid Profile ([facility]) 07/07/2003 Cholesterol 192 mg/dL 120-200 Triglyceride 66 mg/dL 30-200 HDL-Chol 61 30-85 LDL-Calculated ([facility]) 118 CALC 0-129 VLDL 13 0-50 HDL Risk Factor ([facility]) 3.1 CALC Low 4.2-7.0 Comp Metabolic ([facility]) 08/12/2002 Glucose, Serum (a/[facility]/CTX) 91 mg/dL 70- 118 BUN (a/[facility]) 15 mg/dL 7-26 Creatinine (a/[facility]) 0.8 mg/dL 0.6-1.4 BUN/Creatinin Ratio 18.6 8.0-36 Sodium 149 134-149 Potassium 4.3 3.6-5.5 Chloride 104 mEq/L 94-112 Co2 26 21-32 Calcium ([facility]) 10.0 mg/dL 8.6-10.0 Total Protein 7.8 g/dL 6.3-8.1 Albumin ([facility]) 4.6 3.8-5.5 Globulin 3.1 2.0-4.8 A/G Ratio ([facility]) 1.5 0.6-2.2 Alkaline Phosphatase (F/C/CTX) 44 U/L 30-110 Alt (SGPT) 28 10-40 Ast (Sgot) ([facility]) 17 U/mL 5-34 Bilirubin, Total 0.5 mg/dL 0.2-1.3 Lipid Profile ([facility]) 08/12/2002 Cholesterol 213 mg/dL High 120-200 Triglyceride 111 mg/dL 30-200 HDL-Chol 75 30-85 LDL-Calculated ([facility]) 116 CALC 0-129 VLDL 22 0-50 HDL Risk Factor (a) 2.8 CALC Low 4.2-7.0 Liver Function ([facility]) 04/18/2002 Total Protein 7.2 g/dL 6.3-8.1 Albumin ([facility]rex) 4.6 3.8-5.5 A/G Ratio ([facility]/Placervillex) 1.8 0.6-2.2 Globulin 2.6 2.0-4.8 Alkaline Phosphatase 53 U/L 42-98 Alt (SGPT) 19 10-40 Ast (Sgot) ([facility]) 21 U/mL 5-34 Bilirubin, Total 0.5 mg/dL 0.2-1.3 Bilirubin, Direct 0.2 mg/dL 0-0.6 Bilirubin, Indirect 0.28 ml/dl 0.10-1.0 Lipid Profile ([facility]) 04/18/2002 Cholesterol 185 mg/dL 120-200 Triglyceride 73 mg/dL 30-200 HDL-Chol 72 30-85 LDL-Calculated ([facility]) 98 CALC 0-129 VLDL 15 0-50 HDL Risk Factor ([facility]) 2.6 CALC Low 4.2-7.0 Comp Metabolic ([facility]) 12/24/2001 Albumin 4.3 3.8-5.5 Alkaline Phosphatase 53 U/L 36-117 Bilirubin, Total 0.4 mg/dL 0.2-1.3 BUN 17 7-26 Calcium 9.3 mg/dL 8.6-10.0 Creatinine 0.8 mg/dL 0.6-1.4 Glucose 92 mg/dL 70 - 118 Ast Sgot 21 U/L 5-40 Alt (SGPT) 23 10-40 Total Protein 6.7 g/dL 6.4-8.3 Sodium 144 134-149 Potassium 4.0 3.6-5.5 Chloride 103 mEq/L 94-112 Co2 27 21-32 Globulin 2.4 2.0-4.8 Albumin / Globulin Ratio 1.8 0.6-2.2 BUN/Creatinin Ratio 21.3 8.0-36 Lipid Profile ([facility]) 12/24/2001 Cholesterol 196 mg/dL 140-200 Triglyceride 125 mg/dL 30-150 VLDL 25 0-50 LDL-Calculated 103 0-160 HDL-Chol 68 35-85 Lipid Profile ([facility]) 04/22/2001 Cholesterol 218 mg/dL High 140-200 Triglyceride 107 mg/dL 30-150 VLDL 21 0-50 LDL-Calculated 121 0-160 HDL-Chol 76 35-85 Liver Function ([facility]) 04/22/2001 Albumin 4.4 3.8-5.5 Alkaline Phosphatase 61 U/L 36-117 Bilirubin, Direct 0.1 mg/dL 0-0.6 Bilirubin, Total 0.3 mg/dL 0.2-1.3 Ast (Sgot) 27 5-34 Alt (SGPT) 29 10-40 Total Protein 7.0 g/dL 6.4-8.3 Bilirubin, Indirect 0.20 ml/dl 0.10-1.0 Liver Function ([facility]) 01/11/2001 Albumin 4.3 3.8-5.5 Alkaline Phosphatase 53 U/L 36-117 Bilirubin, Direct 0.1 mg/dL 0-0.6 Bilirubin, Total 0.5 mg/dL 0.2-1.3 Ast (Sgot) 24 9-44 Alt (SGPT) 25 10-40 Total Protein 7.4 g/dL 6.4-8.3 Bilirubin, Indirect 0.40 ml/dl 0.10-1.0 Lipid Profile ([facility]) 01/11/2001 Cholesterol 195 mg/dL 140-200 Triglyceride 65 mg/dL 30-150 VLDL 13 0-50 LDL-Calculated 118 0-160 HDL-Chol 64 35-85 Liver Function ([facility]) 10/29/2000 Albumin 4.4 3.8-5.5 Alkaline Phosphatase 51 U/L 20-80 Bilirubin, Direct 0.2 mg/dL 0-0.6 Bilirubin, Total 0.5 mg/dL 0.2-1.3 Ast (Sgot) 22 9-44 Alt (SGPT) 21 10-40 Total Protein 6.5 g/dL 6.4-8.3 Bilirubin, Indirect 0.30 ml/dl 0.10-1.0 Lipid Profile ([facility]) 10/29/2000 Cholesterol 188 mg/dL 140-200 Triglyceride 78 mg/dL 30-150 VLDL 16 0-50 LDL-Calculated 97 0-160 HDL-Chol 75 35-85 Lipid Profile ([facility]) 08/29/2000 Cholesterol 255 mg/dL High 140-200 Triglyceride 97 mg/dL 30-150 VLDL 19 0-50 LDL-Calculated 179 High 0-160 HDL-Chol 57 35-85 Lipid Profile ([facility]) 03/21/2000 Cholesterol 257 mg/dL High 140-200 Triglyceride 270 mg/dL High 30-150 VLDL 54 High 0-50 LDL-Calculated INVALID 0-160 HDL-Chol 48 35-85 Laboratory test finding 03/21/2000 LDL, Direct 136.3 mg/dL High 0-130 Lipid Profile ([facility]) 12/27/1999 Cholesterol 253 mg/dL High 140-200 Triglyceride 55 mg/dL 30-150 HDL-Chol 78.0 mg/dL High 30-70 VLDL 11 mg/dL 0-50 LDL-Calculated 164 High 0-160 Lipid Profile ([facility]) 09/23/1999 Cholesterol 273 mg/dL High 140-200 Triglyceride 206 mg/dL High 30-150 HDL-Chol 64.0 mg/dL 30-70 VLDL 41 mg/dL 0-50 LDL-Calculated 168 High 0-160 Ua - Micro ([facility] Old) 06/21/1999 Appearance CLEAR LT YELLOW SP Grav 1.015 Esterase - Nitrite - pH 5.0 Protein - Glucose - Ketones - Urobil - Bilirubin - Blood - Hyaline - /Lpf Granular - /Lpf WBC'S 3-5 RBC'S 2-4 Mucus - /Lpf Epith FEW Bacteria 2+ Amorphous - /Lpf Crystals - /Lpf Comp Metabolic ([facility]) 03/23/1999 Albumin 4.1 GM/DL 3.80 - 5.50 Alkaline Phosphatase 36 U/L 39-130 Bilirubin, Total 0.3 mg/dL 0.2-1.3 BUN 15 mg/dL 10-26 Calcium 8.6 mg/dL 7.4-9.2 Creatinine 0.7 mg/dL 0.6-1.4 Glucose 87 mg/dL 70 - 118 Ast Sgot 15 U/L 9-44 Alt (SGPT) 10 U/L 0-28 Total Protein 6.6 g/dL 6.3-8.1 Sodium 139 mEq/L 134-149 Potassium 4.3 mEq/L 3.6-5.5 Chloride 101 mEq/L 94-112 Co2 26 21-32 Globulin 2.5 2.0-4.8 Albumin / Globulin Ratio 1.6 0.6-2.2 BUN/Creatinin Ratio 21.4 8.0-36 1 [facility] Severe Sepsis and Septic Shock Management Bundle Measure requires all lactic acids initially measuring >2.0 mmol/L be repeated. 2 Because ethnic data is not always readily available, this report includes an eGFR for both -Americans and non- Americans. The National Kidney Disease Education Program (NKDEP) does not endorse the use of the MDRD equation for patients that are not between the ages of 18 and 70, are , have extremes of body size, muscle mass, or nutritional status, or are non- or non-. According to the National Kidney Foundation, irrespective of diagnosis, the stage of the disease is based on the level of kidney function: Stage Description GFR(mL/min/1.73 m(2)) 1 Kidney damage with normal or decreased GFR 90 2 Kidney damage with mild decrease in GFR 60-89 3 Moderate decrease in GFR 30-59 4 Severe decrease in GFR 15-29 5 Kidney failure <15 (or dialysis) 3 Desirable: <150 Borderline High: 150-199 High: 200-499 Very High: >500 4 Desirable: <200 Borderline High: 200-239 High: >239 5 Low: <40 Desirable: 40-60 High: >60 6 Desirable: <100 Near Optimal: 100-129 Borderline High: 130-159 High: 160-189 Very High: >189 7 SEE RESULT BELOW Name: SAILAJA OCAMPO : [address]: Hermelinda Trent MD Acct: [id number] Unit: [id number] AGE: 77 Location: [facility] 443-02 Re09/20/17 Dis: 09/21/17 SEX: F Status: DIS Ton SPEC: [id number] ALFONZO: 09/20/[address]: Lamin Martins MD REQ: [id number] RECD: 09/20/17 STATUS: RUBENS PEREZ DR: Javier Cool MD _ SOURCE: URINE SPDESC: ORDERED: Urine Culture Procedure Result Reported Site Urine Culture Final 09/22/17- 0900 ML No growth of clinically significant organisms * ML - Main Lab . END OF REPORT DEPARTMENT OF PATHOLOGY, [address] [place] [address] Glynn Spear M.D. Director [facility] # [id number] Acute inflammation: >10.00 9 SEE RESULT BELOW Name: SAILAJA OCAMPO : [address]: Albania Thorne DO Acct: [id number] Unit: [id number] AGE: 76 Location: [place] [address] Re08/02/16 SEX: F Status: ADM IN SPEC: [id number] ALFONZO: 08/01/16-[address] [facility] [address]: Diana SAWYER REQ: [id number] RECD: 08/01/16 STATUS: RUBENS PEREZ DR: [facility] Javier Cool MD _ SOURCE: URINE SPDESC: ORDERED: Urine Culture Procedure Result Reported Site Urine Culture Final 08/03/16- 0934 ML No growth of clinically significant organisms * ML - MAIN LAB ([facility]) . END OF REPORT * ML=Testing performed at Main Lab DEPARTMENT OF PATHOLOGY, [address] [place] [address] Glynn Spear M.D. Director [facility] # [id number] 10 [facility] Severe Sepsis and Septic Shock Management Bundle Measure requires all lactic acids initially measuring >2.0 mmol/L be repeated. 11 Because ethnic data is not always readily available, this report includes an eGFR for both -Americans and non- Americans. The National Kidney Disease Education Program (NKDEP) does not endorse the use of the MDRD equation for patients that are not between the ages of 18 and 70, are , have extremes of body size, muscle mass, or nutritional status, or are non- or non-. According to the National Kidney Foundation, irrespective of diagnosis, the stage of the disease is based on the level of kidney function: Stage Description GFR(mL/min/1.73 m(2)) 1 Kidney damage with normal or decreased GFR 90 2 Kidney damage with mild decrease in GFR 60-89 3 Moderate decrease in GFR 30-59 4 Severe decrease in GFR 15-29 5 Kidney failure <15 (or dialysis) 12 99th percentile=0.04 ng/mL Troponin results at [facility] and [facility] are not interchangeable. 13 *Ascorbic acid is present which may interfere with detection of blood. 14 SEE RESULT BELOW Name: SAILAJA OCAMPO : [address]: Eulalia Jones MD Acct: [id number] Unit: [id number] AGE: 76 Location: LAB Re07/05/16 SEX: F Status: REG REF SPEC: [id number] ALFONZO: 07/04/16-[address] [facility] [address]: Eulalia Jones MD REQ: [id number] RECD: 07/05/16 STATUS: COMP HR DR: Javier Cool MD _ SOURCE: URINE SPDESC: ORDERED: Urine Culture COMMENTS: SURGERY DATE 07/11/16 QUERIES: Urine Source: Random Procedure Result Reported Site Urine Culture Final 07/08/16- 1047 ML No growth of clinically significant organisms * ML - MAIN LAB ([facility]) . END OF REPORT * ML=Testing performed at Main Lab DEPARTMENT OF PATHOLOGY, [facility] [employer] [place], [place] [address] Glynn Spear M.D. Director [facility] # [id number] 15 Because ethnic data is not always readily available, this report includes an eGFR for both -Americans and non- Americans. The National Kidney Disease Education Program (NKDEP) does not endorse the use of the MDRD equation for patients that are not between the ages of 18 and 70, are , have extremes of body size, muscle mass, or nutritional status, or are non- or non-. According to the National Kidney Foundation, irrespective of diagnosis, the stage of the disease is based on the level of kidney function: Stage Description GFR(mL/min/1.73 m(2)) 1 Kidney damage with normal or decreased GFR 90 2 Kidney damage with mild decrease in GFR 60-89 3 Moderate decrease in GFR 30-59 4 Severe decrease in GFR 15-29 5 Kidney failure <15 (or dialysis) 16 result reckd 17 RUN DATE: 10/15/13 [facility] LAB LIVE PAGE 1 RUN TIME: 567 [facility] [employer] [place], [place] [address] Specimen Inquiry Name: SAILAJA OCAMPO : [address]: Serjio Harp MD Acct: [id number] Unit: [id number] AGE: 73 Location: ENDO Re10/14/13 SEX: F Status: REG REF SPEC: [id number] ALFONZO: 10/14/13-[address] [facility] [address]: Serjio Harp MD REQ: [id number] RECD: 10/14/13-1230 STATUS: JASS PEREZ DR: Javier Cool MD _ ORDERED: LEVEL IV FINAL DIAGNOSIS Colon, cecum, biopsy: A. Tubular adenoma. B. No high grade dysplasia or malignancy. CLINICAL HISTORY Screening colonoscopy, history of polyps. POST-OPERATIVE DIAGNOSIS Screening colonoscopy to cecum, polyp (biopsied), tics; no repeat GROSS DESCRIPTION The specimen is received in formalin labeled Sailaja Jackifaith Ocampo, Biopsy Cecal Polyp and consists of a 0.4 x 0.3 x 0.2 cm. locke-pink irregular soft tissue fragment. Submitted entirely, one cassette. Signed (signature on file) Diana Israel MD 1713 END OF REPORT * ML=Testing performed at Main Lab DEPARTMENT OF PATHOLOGY, [address] [place] [address] Glynn Spear M.D. Director [facility] # [id number] 18 Negative <0.91 Equivocal 0.91 - 1.09 Positive >1.09 Note: The CDC currently advises that Western blot testing be performed following all equivocal or positive EIA results. Final diagnosis should include appropriate clinical findings and a positive EIA which is also positive by Western blot. 19 Negative <0.91 Equivocal 0.91 - 1.09 Positive >1.09 Note: IgM levels may peak at 3-6 weeks post infection, then gradually decline. FDA currently advises that Western Blot testing be performed following all equivocal or positive EIA results. Final diagnosis should include appropriate clinical findings and a positive EIA which is also positive by Western Blot. 20 Positive: 5 of the following Borrelia-specific bands: 18,23,28,30,39,41,45,58, 66, and 93. Negative: No bands or banding patterns which do not meet positive criteria. 21 Note: An equivocal or positive EIA result followed by a negative Western Blot result is considered NEGATIVE. An equivocal or positive EIA result followed by a positive Western Blot is considered POSITIVE by the CDC. Positive: 2 of the following bands: 23,39 or 41 Negative: No bands or banding patterns which do not meet positive criteria. Criteria for positivity are those recommended by CDC/ASTPHLD. p23=Osp C, b58=kmkiiaoyi Note: Sera from individuals with the following may cross react in the Lyme Western Blot assays: other spirochetal diseases (periodontal disease, leptospirosis, relapsing fever, yaws, and pinta); connective autoimmune (Rheumatoid Arthritis and Systemic Lupus Erythematosus and also individuals with Antinuclear Antibody); other infections ([place] Spotted Fever; Ahsan-Jackman Virus, and Cytomegalovirus). 22 Specific serologic response to B. burgdorferi infection is not detected, but cannot rule out early infection during which low or undetectable antibody levels to B. burgdorferi may be present. If clinically indicated, a new serum specimen should be submitted in 7-14 days. CDC criteria require >=5 bands for IgG or >=2 bands for IgM for the Immunoblot to be considered positive. Bands (e.g.,p41) may be detected in patients without Lyme disease, and patterns not meeting the CDC criteria should be interpreted with caution. Immunoblot should be ordered only on specimens that are positive or equivocal by a FDA-licensed Lyme disease antibody screening test (e.g., EIA). Test Performed by: [place] [address] Travel Rn: Keyshawn Perez III, M.D. 23 Not diagnostic. Supplemental testing ordered by reflex. Test Performed by: [place] [address] Travel Rn: Keyshawn Perez III, M.D. 24 Negative 0 - 5 Weak Positive 6 - 9 Positive >9 25 Negative 0 - 19 Weak Positive 20 - 30 Moderate to Strong Positive >30 26 Negative 0 - 19 Weak Positive 20 - 30 Moderate to Strong Positive >30 27 Anion gap measurement may be of limited value in the presence of any alkalosis, especially in a combined acid base disorder. . 28 Note change in reference range as of 11/07/07. The change was based on recommendations from the [place] [employer]. 29 Please note change in reference range effective 07 . 30 A metabolite of Naproxen, O-desmethylnaproxen, has been shown to interfere with the Jendrassik-Magness method for measuring total bilirubin. Samples from patients who have taken Naproxen have shown spurious elevation in total bilirubin levels. 31 Because ethnic data is not always readily available, this report includes an eGFR for both -Americans and non- Americans. The National Kidney Disease Education Program (NKDEP) does not endorse the use of the MDRD equation for patients that are not between the ages of 18 and 70, are , have extremes of body size, muscle mass, or nutritional status, or are non- or non-. According to the National Kidney Foundation, irrespective of diagnosis, the stage of the disease is based on the level of kidney function: Stage Description GFR(mL/min/1.73 m(2)) 1 Kidney damage with normal or decreased GFR 90 2 Kidney damage with mild decrease in GFR 60-89 3 Moderate decrease in GFR 30-59 4 Severe decrease in GFR 15-29 5 Kidney failure <15 (or dialysis) 32 The testing method is a chemiluminometric immunoassay manufactured by [employer] and performed on the [employer] Centaur. Values obtained with different assay methods or kits may be different and cannot be used interchangeably. Test results cannot be interpreted as absolute evidence for the presence or absence of malignant disease. Test Performed by: [facility] Dpt of Lab Med and Pathology [address] [place] [address] Travel Rn: Keyshawn Perez III, M.D. 33 Anion gap measurement may be of limited value in the presence of any alkalosis, especially in a combined acid base disorder. . 34 Note change in reference range as of 11/07/07. The change was based on recommendations from the [place] [employer]. 35 Please note change in reference range effective 07 . 36 A metabolite of Naproxen, O-desmethylnaproxen, has been shown to interfere with the Jendrassik-Magness method for measuring total bilirubin. Samples from patients who have taken Naproxen have shown spurious elevation in total bilirubin levels. 37 Because ethnic data is not always readily available, this report includes an eGFR for both -Americans and non- Americans. The National Kidney Disease Education Program (NKDEP) does not endorse the use of the MDRD equation for patients that are not between the ages of 18 and 70, are , have extremes of body size, muscle mass, or nutritional status, or are non- or non-. According to the National Kidney Foundation, irrespective of diagnosis, the stage of the disease is based on the level of kidney function: Stage Description GFR(mL/min/1.73 m(2)) 1 Kidney damage with normal or decreased GFR 90 2 Kidney damage with mild decrease in GFR 60-89 3 Moderate decrease in GFR 30-59 4 Severe decrease in GFR 15-29 5 Kidney failure <15 (or dialysis) 38 The testing method is a chemiluminometric immunoassay manufactured by [employer] and performed on the [employer] Centaur. Values obtained with different assay methods or kits may be different and cannot be used interchangeably. Test results cannot be interpreted as absolute evidence for the presence or absence of malignant disease. Test Performed by: [facility] Dpt of Lab Med and Pathology [address] [id number] Travel Rn: Keyshawn Perez III, M.D. 39 FASTING 40 Anion gap measurement may be of limited value in the presence of any alkalosis, especially in a combined acid base disorder. . 41 Note change in reference range as of 11/07/07. The change was based on recommendations from the [place] [employer]. 42 Please note change in reference range effective 07 . 43 A metabolite of Naproxen, O-desmethylnaproxen, has been shown to interfere with the Jendrassik-Marycruz method for measuring total bilirubin. Samples from patients who have taken Naproxen have shown spurious elevation in total bilirubin levels. 44 NOTE: THIS ASSAY IS NOW BEING PERFORMED IN HOUSE. PLEASE NOTICE THE CHANGE IN THE REFERENCE RANGE. ASSAY BY CHEMILUMINESCENCE MICROPARTICLE IMMUNOASSAY ON THE JEAN ACS:180SE. VALUES OBTAINED WITH DIFFERENT METHODS OR KITS CANNOT BE USED INTERCHANGEABLY FOR PATIENT MONITORING. RESULTS CANNOT BE INTERPRETED ABSOLUTE EVIDENCE OF THE PRESENCE OR ABSENCE OF MALIGNANCY. THE TEST IS NOT INTERPRETABLE IN . 45 Anion gap measurement may be of limited value in the presence of any alkalosis, especially in a combined acid base disorder. . 46 NOTE: THIS ASSAY IS NOW BEING PERFORMED IN HOUSE. PLEASE NOTICE THE CHANGE IN THE REFERENCE RANGE. ASSAY BY CHEMILUMINESCENCE MICROPARTICLE IMMUNOASSAY ON THE JEAN ACS:180SE. VALUES OBTAINED WITH DIFFERENT METHODS OR KITS CANNOT BE USED INTERCHANGEABLY FOR PATIENT MONITORING. RESULTS CANNOT BE INTERPRETED ABSOLUTE EVIDENCE OF THE PRESENCE OR ABSENCE OF MALIGNANCY. THE TEST IS NOT INTERPRETABLE IN . 47 Anion gap measurement may be of limited value in the presence of any alkalosis, especially in a combined acid base disorder. . 48 NOTE: THIS ASSAY IS NOW BEING PERFORMED IN HOUSE. PLEASE NOTICE THE CHANGE IN THE REFERENCE RANGE. ASSAY BY CHEMILUMINESCENCE MICROPARTICLE IMMUNOASSAY ON THE JEAN ACS:180SE. VALUES OBTAINED WITH DIFFERENT METHODS OR KITS CANNOT BE USED INTERCHANGEABLY FOR PATIENT MONITORING. RESULTS CANNOT BE INTERPRETED ABSOLUTE EVIDENCE OF THE PRESENCE OR ABSENCE OF MALIGNANCY. THE TEST IS NOT INTERPRETABLE IN . 49 Anion gap measurement may be of limited value in the presence of any alkalosis, especially in a combined acid base disorder. . 50 NOTE: THIS ASSAY IS NOW BEING PERFORMED IN HOUSE. PLEASE NOTICE THE CHANGE IN THE REFERENCE RANGE. ASSAY BY CHEMILUMINESCENCE MICROPARTICLE IMMUNOASSAY ON THE JEAN ACS:180SE. VALUES OBTAINED WITH DIFFERENT METHODS OR KITS CANNOT BE USED INTERCHANGEABLY FOR PATIENT MONITORING. RESULTS CANNOT BE INTERPRETED ABSOLUTE EVIDENCE OF THE PRESENCE OR ABSENCE OF MALIGNANCY. THE TEST IS NOT INTERPRETABLE IN . 51 Giardia and cryptosporidium antigen testing performed by immunoassay. If patient is immunocompromised or has traveled to or is from a developing country, a full ova and parasite exam with microscopic (OPMIC) is recommended. All samples will be held one month in case full ova and parasite testing is requested. Contact the Microbiology Department at [phone]. N^NEGATIVE BY IMMUNOASSAY^CRY N^NEGATIVE BY IMMUNOASSAY^PERLA 52 NO OVA PARASITES OBSERVED BY CHOLO ACETATE CONCENTRATION. NO CYSTS /OR TROPHOZOITES OBSERVED BY TRICHROME STAIN. CRYPTOSPORIDIUM NOT ROUTINELY PERFORMED WITH OVA AND PARASITE TESTING. Procedures Date CPT Code Description Status 12/15/2016 Mammogram Completed 09/05/2016 Bone Mineral Density Test Completed 06/20/2016 49944 Electrocardiogram Complete Completed 12/03/2015 Mammogram Completed 10/29/2014 Mammogram Completed 10/28/2013 Mammogram Completed 10/14/2013 Colonoscopy Completed 09/20/2010 Mammogram Completed 08/17/2009 Mammogram Completed 09/15/2008 Mammogram Completed 11/27/2007 74490 Holter Monitor Completed 09/06/2007 Mammogram Completed 07/20/2006 Mammogram Completed 04/05/1999 74817 Electrocardiogram Complete Completed Encounters Type Date Location Provider CPT E/M Dx Office Visit 08/27/2017 10:10a Main Office Javier Cool M.D. 89463 R42 I10 Office Visit 08/27/2017 1:45p Main Office Javier Cool M.D. 10588 R42 I10 Office Visit 05/08/2017 1:20p [facility] Javier Cool M.D. 79266 I10 M25.561 G47.00 Office Visit 04/05/2017 3:30p [place] [address] L23.3 Office Visit 10/31/2016 1:20p [facility] Javier Cool M.D. 11372 I10 E78.00 Office Visit 09/05/2016 2:10p [facility] Javier Cool M.D. 17421 M81.0 Office Visit 08/11/2016 11:20a Main Office Javier Cool M.D. 98246 R55 M25.561 I10 E78.00 M81.0 Office Visit 06/20/2016 2:20p [facility] Javier Cool M.D. 64422 M25.561 I10 E78.00 Z01.818 Office Visit 05/02/2016 1:00p [facility] Javier Cool M.D. 14150 I10 G47.00 H92.09 Office Visit 11/09/2015 1:00p [facility] Javier Cool M.D. 51159 I10 E78.0 Office Visit 05/11/2015 1:00p [facility] Javier Cool M.D. 18549 I10 E78.0 Office Visit 12/28/2014 2:45p [facility] UGO Viera 87355 M62.830 Z23 Office Visit 11/03/2014 1:00p [facility] Javier Cool M.D. 21880 401.1 272.0 Office Visit 05/05/2014 1:00p [facility] Javier Cool M.D. 09429 401.1 272.0 Office Visit 10/21/2013 1:00p [facility] Javier Cool M.D. 84998 401.1 272.0 272.1 Office Visit 02/05/2013 7:00p Main Office Javier Cool M.D. 91552 913.4 989.5 E906.4 Office Visit 11/07/2012 1:45p Main Office Melissa Nikolay Solis-Jamil 70427 724.5 Office Visit 10/15/2012 3:10p [facility] Javier Cool M.D. 74675 401.1 272.0 Office Visit 09/26/2012 5:30p Main Office UGO [place]iera 57099 736.6 Office Visit 08/26/2012 12:15p [place] [address] E906.4 916.4 Office Visit 04/16/2012 3:00p [facility] Javier Cool M.D. 12319 V06.1 V06.5 401.1 272.0 Office Visit 10/10/2011 1:00p [facility] Javier Cool M.D. 04066 401.1 781.1 Office Visit 04/11/2011 1:00p [facility] Javier Cool M.D. 06924 272.0 401.1 Office Visit 08/24/2010 3:10p Main Office Javier Cool M.D. 61125 782.0 Office Visit 01/18/2010 1:20p [facility] Javier Cool M.D. 79741 366.9 787.91 V72.83 Office Visit 09/21/2009 11:10a [facility] Javier Cool M.D. 79656 272.0 Office Visit 07/08/2009 1:30p [facility] Jade Escobar M.D. 50490 528.9 787.3 Office Visit 10/01/2008 1:20p [facility] Javier Cool M.D. 12547 401.1 272.0 783.21 Office Visit 03/31/2008 3:10p [facility] Javier Cool M.D. 48696 729.5 Office Visit 02/25/2008 1:10p [facility] Javier Cool M.D. 78269 955.2 Office Visit 11/26/2007 3:10p [facility] Javier Cool M.D. 52775 272.0 401.1 Office Visit 04/23/2007 1:10p [facility] Javier Cool M.D. 69882 786.50 Office Visit 01/21/2007 2:30p [facility] Nikolay Knox-Jamil 38851 786.2 V04.81 Office Visit 07/24/2006 11:00a [facility] Javier Cool M.D. 25941 786.2 Office Visit 03/17/2006 2:00p [facility] Office Diana Haywood 72070 129 M.DJohn Office Visit 01/23/2006 4:20p [facility] Javier Cool M.D. 85574 V04.81 780.52 272.0 719.45 Office Visit 08/02/2005 3:00p [facility] Javier Cool M.D. 78076 401.9 780.52 272.0 719.46 Office Visit 07/26/2004 10:10a [facility] Javier Cool M.D. 61316 401.9 272.0 Office Visit 05/16/2004 3:40p [facility] Javier Cool M.D. 03076 786.2 Office Visit 04/26/2004 2:30p [facility] Melissa SolisNikolay-C 56735 466.0 Office Visit 03/25/2004 3:10p [facility] Javier Cool M.D. 18252 401.9 272.0 780.52 Office Visit 07/07/2003 11:00a [facility] Javier Cool M.D. 18166 401.9 272.0 Office Visit 11/10/2002 11:15a [facility] Tana PadillaNikolay-C 95856 959.5 Office Visit 10/16/2002 2:20p [facility] Gennaro Hinkle M.D. 94158 719.45 789.00 Office Visit 08/12/2002 1:10p [facility] Javier Cool M.D. 14455 401.9 272.4 Office Visit 04/18/2002 11:00a [facility] Javier Cool M.D. 22781 724.5 401.1 272.0 Office Visit 12/24/2001 9:00a [facility] Javier Cool M.D. 20198 Office Visit 06/18/2001 9:40a [facility] Javier Cool M.D. 10729 Office Visit 10/08/2000 11:20a [facility] Javier Cool M.D. 35423 Office Visit 08/07/2000 9:40a [facility] Javier Cool M.D. 77864 Office Visit 12/27/1999 10:00a [facility] Javier Cool M.D. 10734 Plan of Care Future Appointment(s):02/26/2018 1:00 pm - Javier Cool M.D. at [facility] Ebldfv6111/06/2017 1:20 pm - Javier Cool M.D. at [facility] Nabicb6809/27/2017 - Javier Bales MDG45.9 Transient cerebral ischemic attack, [id number] Peripheral vascular disease, unspecifiedNew Medication: Atorvastatin Calcium 80 mgComments:let's refer you to Vascular surgery to get an opinion about the Brachiocephalic blockage.AllComments:~B_~U_Medication Management~b_~u_ Patient Understands medications she's taking? Yes No Are there Barriers to Adherence? Yes No Has the patient been asked about herbal supplements and therapies, and OTC meds? Yes No
[2017-09-28 15:34] VITALS: BP 139/56
== END 2017-09-28 15:39 | disposition home or self-care (01) ==
LOC: ED 13:27
DX: R20.0 Anesthesia of skin (principal); R20.2 Paresthesia of skin; F41.9 Anxiety disorder, unspecified; Z86.73 Personal history of transient ischemic attack (TIA), and cerebral infarction without residual deficits
CPT/HCPCS: 36415; 80048; 85025; 93005; 96360; 96361; 99282

== ENCOUNTER 2017-12-02 05:24 | Emergency (ER) | payer MEDICARE, OTHER ==
--- NOTE | 2017-12-02 06:25 | ED ---
Upper Extremity Pain - HPI Summary HPI Summary: Pt presents w/ Lt arm pain that woke her from sleep. 03/28. Intermittent and worse w/ movement. Feels this along the posterior shoulder and arm down to elbow at times. Denies injury as well as numbness, tingling, weakness. No change in activity but does admit to a h/o rotator cuff issues w/ one of her shoulders - does not recall which one. Was lying on her Lt side when she woke w / pain. She is here as she is concerned about this being a cardiac symptom. She was had a TIA last month. That presented with difficulty with speech and left-sided arm numbness. She does not have either of those symptoms today. Additionally, she denies fatigue, fever, chills, chest pain, shortness of breath , jaw pain, nausea, vomiting, abdominal pain, back pain. She does take Lipitor , lisinopril and aspirin and her blood pressure is elevated today provider assigned however patient denies headache or change in vision. She has not tried anything for her symptoms prior to arrival as they're quite minor. Just wanted it checked out. She does not follow with a rn bone marrow transplant nor neurologist. Her PCP is Dr. Cool. - History of Current Complaint Chief Complaint: EDExtremityUpper Stated Complaint: LT ARM PAIN Time Seen by Provider: 12/02/17 05:58 Hx Obtained From: Patient, Family/[employer] - - Allergies/Home Medications Allergies/Adverse Reactions: Allergies Allergy/AdvReac Type Severity Reaction Status Date / Time shellfish derived Allergy Severe Difficulty Verified 12/02/17 05:30 Breathing grape Allergy Difficulty Verified 12/02/17 05:30 Breathing grape seed Allergy Difficulty Verified 12/02/17 05:30 Breathing kiwi Allergy Difficulty Verified 12/02/17 05:30 Breathing PMH/Surg Hx/FS Hx/Imm Hx Previously Healthy: Yes Endocrine/Hematology History: Denies: Hx Anticoagulant Therapy - ASA daily, Hx Diabetes Cardiovascular History: Reports: Hx Hypertension Denies: Hx Pacemaker/ICD Comment Only: Other Cardiovascular Problems/Disorders - heart murmur Respiratory History: Reports: Hx Asthma, Other Respiratory Problems/Disorders - Chronic cough GI History: Reports: Hx Gastroesophageal Reflux Disease, Other GI Disorders - LACTOSE INTOLERANCE History: Denies: Hx Renal Disease Musculoskeletal History: Reports: Hx Arthritis - HIPS, KNEES, SHOULDERS, Hx Osteoporosis, Hx Scoliosis, Other Musculoskeletal History - 2005 LEFT TKR, OSTEOARTHRITIS RIGHT KNEE, EFFUSION Sensory History: Reports: Hx Contacts or Glasses Denies: Hx Cataracts, Hx Hearing Aid Opthamlomology History: Reports: Hx Contacts or Glasses Denies: Hx Cataracts Neurological History: Reports: Hx Migraine - AURA ONLY, NO HEADACHE Denies: Hx Headaches, Other Neuro Impairments/Disorders - PAIN CLINIC PT. Psychiatric History: Denies: Hx Panic Disorder - Cancer History Cancer Type, Location and Year: BREAST Hx Chemotherapy: Yes - 1999 RIGHT BREAST CA Hx Radiation Therapy: Yes - BREAST - Surgical History Surgery Procedure, Year, and Place: PARTIAL SEGMENTAL MASTECTOMY RIGHT BREAST 2011 [facility],. TUBAL LIGATION 1974 [place]. LEFT TOTAL KNEE REPLACEMENT 2004 [place]. BILATERAL CATARACTS 2011 [facility]. RIGHT TOTAL KNEE JUNE 2016 Hx Anesthesia Reactions: Yes - USUALLY EXPERIENCES WEAKNESS, DIZZINESS Infectious Disease History: No Infectious Disease History: Denies: Hx Clostridium Difficile, Hx Hepatitis, Hx Human Immunodeficiency Virus (HIV), History Other Infectious Disease, Traveled Outside the [place] in Last 30 Days - Family History Known Family History: Positive: Cardiac Disease, Hypertension Negative: Diabetes - Social History Occupation: Retired Lives: With Family Alcohol Use: Rare Hx Substance Use: No Substance Use Type: Reports: None Hx Tobacco Use: No Smoking Status (MU): Never Smoked Tobacco Have You Smoked in the Last Year: No Review of Systems Constitutional: Negative Negative: Fever, Chills, Fatigue Eyes: Negative Positive: Epistaxis Cardiovascular: Negative Negative: Palpitations, Chest Pain Respiratory: Negative Negative: Shortness Of Breath, Cough Gastrointestinal: Negative Negative: Vomiting, Nausea Genitourinary: Negative Positive: Arthralgia, Myalgia Skin: Negative Neurological: Negative Negative: Headache, Weakness, Paresthesia, Numbness, Syncope, Slurred Speech Psychological: Normal All Other Systems Reviewed And Are Negative: Yes Physical Exam Triage Information Reviewed: Yes Vital Signs On Initial Exam: Initial Vitals Temp Pulse Resp BP Pulse Ox 97.5 F 68 16 159/84 98 12/02/17 05:25 12/02/17 05:25 12/02/17 05:25 12/02/17 05:25 12/02/17 05:25 Vital Signs Reviewed: Yes Appearance: Positive: Well-Appearing, No Pain Distress, Well-Nourished Skin: Positive: Warm, Skin Color Reflects Adequate Perfusion, Dry, Cold - no erythema, no ecchymosis over affected area Head/Face: Positive: Normal Head/Face Inspection Eyes: Positive: EOMI ENT: Positive: Hearing grossly normal Neck: Positive: Supple, Nontender Respiratory/Lung Sounds: Positive: Clear to Auscultation, Breath Sounds Present. Negative: Rales, Rhonchi, Wheezes Cardiovascular: Positive: RRR, Pulses are Symmetrical in both Upper and Lower Extremities, Murmur, S1, S2. Negative: Leg Edema Left, Leg Edema Right Abdomen Description: Positive: Nontender, No Organomegaly, Soft Bowel Sounds: Positive: Present Musculoskeletal: Positive: Strength/ROM Intact, Pain @ - Lt infraspinatus m and tendon insertion TTP - same area of pain Neurological: Positive: Normal, Sensory/Motor Intact, Alert, Oriented to Person Place, Time, CN Intact II-III, Facial Symmetry, Speech Normal. Negative: Babinski Bilateral, Pronator Drift Present Psychiatric: Positive: Normal Diagnostics - Vital Signs Vital Signs Temp Pulse Resp BP Pulse Ox 12/02/17 05:25 97.5 F 68 16 159/84 98 - Laboratory Result Diagrams: 12/02/17 06:32 12/02/17 06:32 Lab Statement: Any lab studies that have been ordered have been reviewed, and results considered in the medical decision making process. Discharge - Sign-Out/Discharge Documenting (check all that apply): Patient Departure - Discharge Plan Condition: Stable Disposition: HOME Patient Education Materials: Shoulder Pain (ED) Referrals: Javier Cool MD [Primary Care Provider] - Additional Instructions: Suspect tendon/muscle strain, possibly while sleeping. Rest, ice for first 24 - 48 hours. After this you may try heat with gentle stretches followed by ice. You may take acetaminophen as needed for pain as well as topical analgesics ( ie. bengay, etc). If symptoms persist or worsen, follow-up with PCP. *IF you develop chest pain, shortness of breath, fatigue, headache, change in vision, nausea, flushing, weakness, numbness, change in speech/memory/confusion , return to the ED - Billing Disposition and Condition Condition: STABLE Disposition: Home
[2017-12-02 06:40] LABS: ABS Basophils 0.1 10^3/ul (0-0.2); ABS Eosinophils 0.3 10^3/ul (0-0.6); ABS Lymphocytes 2.2 10^3/ul (1.0-4.8); ABS Nucleated RBC 0 10^3/ul; Hematocrit 38 % (35-47); Hemoglobin 12.8 g/dl (12.0-16.0); Lymphocyte % 28.5 % (25-47); Mean Corpuscular HGB Conc 34 g/dl (31-36); Mean Corpuscular Hemoglobin 31 pg (27-31); Mean Corpuscular Volume 92 fL (80-97); Mean Platelet Volume 8.5 um3 (7.4-10.4); Nucleated Red Blood Cells % 0.1; Platelet Count 217 10^3/ul (150-450); Red Blood Count 4.14 10^6/ul (4.00-5.40); Red Cell Distribution Width 14 % (10.5-15); White Blood Count 7.6 10^3/ul (3.5-10.8)
[2017-12-02 06:48] LABS: INR 0.89 (0.77-1.02)
[2017-12-02 07:01] LABS: EGFR Non-African American 42.9 (>60)
[2017-12-02] MEDS ORDERED: NS 0.9% 500 ML* 500 ML IV ONE (08:02)
[2017-12-02 10:22] VITALS: BP 130/60
== END 2017-12-02 10:23 | disposition home or self-care (01) ==
LOC: ED 05:24
CPT/HCPCS: 36415; 80053; 83605; 83735; 84484; 85025; 85610; 85730; 93005

== ENCOUNTER 2018-04-23 18:26 | Emergency (ER) | payer MEDICARE, OTHER ==
--- OUTSIDE RECORDS SUMMARY | 2018-04-23 18:36 | XMS REPORT | Continuity of Care Document ---
:1940 External Reference #:[id number] Author Name Chaim Hernandez, OD Address [address] [place] [address] Care Team Providers Name Role Phone Travon SANDRA, Javier Care Team Information Cattle Manager Unavailable Travon SANDRA, Javier Primary Care Physician Unavailable Payers Type Date Identification Numbers Payment Provider Subscriber Policy Number: [id number] [employer] [place]campo PayID: [id number] [address] [place] [address] Policy Number: [id number] [facility] [place] [facility] PayID: [id number] [address] [place] [address] Advance Directives Description No Information Available Problems Date Description Provider Status Onset: 01/11/2015 Presbyopia Chaim Astorga O.D. Active Onset: 01/11/2015 Regular astigmatism Chaim Astorga O.D. Active Onset: 01/11/2015 Hypermetropia Chaim Astorga O.D. Active Onset: 01/11/2015 Presence of intraocular lens Chaim Astorga O.D. Active Onset: 01/11/2015 Vitreous degeneration Chaim Astorga O.D. Active Onset: 03/10/2014 Status Post Surgery Chaim Astorga O.D. Active Onset: 01/08/2014 After-cataract with vision obscured Dung Judd M.D. Active Family History Date Family Member(s) Problem(s) Comments General Blindness General Cataract General High BP General Aunt, Brother Father Heart Disease Father High BP Mother High BP Mother Cancer Social History Type Date Description Comments Sex Unknown ETOH Use Denies alcohol use Tobacco Use Start: Unknown Patient has never smoked Smoking Status Reviewed: 04/03/18 Patient has never smoked Allergies, Adverse Reactions, Alerts Description No Known Drug Allergies Medications Medication Date Status Form Strength Qnty SIG Indications Ordering Provider Nifedical XL /0 Active Tablets ER 60mg Travon SANDRA, 000 24HR Javier Simvastatin Active Tablets 20mg Travon SANDRA, 000 Javier Lisinopril Active Tablets 5mg Travon SANDRA, 000 Javier Cuca Allergy Active Tablets 60mg Unknown 000 Azelastine HCL Active Solution 0.1% Unknown (Nasal) 000 Trazodone HCL Hx Tablets 50mg Travon SANDRA, 000 - Javier 016 Azelastine HCL Hx Solution 137mcg/Spra Unknown 000 - y 015 Fluticasone Hx Suspension 50mcg/Act Travon SANDRA, Propionate 000 - Javier 016 Immunizations Description No Information Available Vital Signs Date Vital Result Comment 04/03/2018 2:49pm Intraocular Pressure Right Eye 16 mmHg Intraocular Pressure Left Eye 16 mmHg 03/23/2017 11:07am Intraocular Pressure Right Eye 17 mmHg Intraocular Pressure Left Eye 17 mmHg 01/19/2016 2:52pm Intraocular Pressure Right Eye 16 mmHg Intraocular Pressure Left Eye 16 mmHg 01/11/2015 1:25pm Intraocular Pressure Right Eye 15 mmHg Intraocular Pressure Left Eye 15 mmHg 03/10/2014 12:08pm Intraocular Pressure Right Eye 15 mmHg Intraocular Pressure Left Eye 15 mmHg 01/08/2014 2:22pm Intraocular Pressure Right Eye 18 mmHg Intraocular Pressure Left Eye 19 mmHg Results Description No Information Available Procedures Date Code Description Status 04/03/2018 27099 Refraction Completed 04/03/2018 33499 Eye Exam Est Comprehensive Completed 03/23/2017 73462 Ophthalmoscopy Subsequent Completed 03/23/2017 55222 Eye Exam Est Intermediate Completed 01/19/2016 17470 Ophthalmoscopy Subsequent Completed 01/19/2016 62802 Eye Exam Est Intermediate Completed 01/11/2015 11661 Ophthalmoscopy Subsequent Completed 01/11/2015 59263 Refraction Completed 01/11/2015 27558 Eye Exam Est Comprehensive Completed 03/05/2014 14788 Remove Secondary Cataract, Laser (Yag) Completed 02/25/2014 26282 Remove Secondary Cataract, Laser (Yag) Completed 01/08/2014 23440 Eye Exam Est Intermediate Completed 08/26/2010 51448 Eye Exam Est Comprehensive Completed 08/26/2010 48175 Refraction Completed 04/07/2010 94501 Fundus Photography W/Interpretation & Report Completed 04/07/2010 69535 Ophthalmoscopy Initial Completed 04/07/2010 24368 Eye Exam Est Intermediate Completed 01/31/2010 31285 Extracapsular Cataract Extraction W/Intraocular Lens Completed 01/24/2010 38476 Extracapsular Cataract Extraction W/Intraocular Lens Completed 12/21/2009 83193 Ophthalmic Biometry By Partial Coherence Interferometry Completed W/Intra 12/21/2009 92131 Eye Exam Est Comprehensive Completed 05/24/2009 09022 Refraction Completed 05/24/2009 67104 Eye Exam Est Comprehensive Completed 06/18/2008 72538 Refraction Completed 06/18/2008 89969 Eye Exam Est Comprehensive Completed 06/18/2007 39279 Eye Exam New Comprehensive Completed Encounters Description No Information Available Plan of Treatment 04/03/2018 - Chaim Hernandez, ODZ96.1 Presence of intraocular lensH52.4 [id number] Vitreous degeneration, bilateralFollow up:yearly full, sooner PRN
--- NOTE | 2018-04-23 20:04 | ED ---
Dizziness - HPI Summary HPI Summary: Pt is a 78 y/o F presenting to the ED with a chief complaint of a spell this past week. Today, she was told to come to the ED by her physician. About three days ago, she had a spell, she felt lightheaded, not like herself, spacey, tingly, and out of it, about three days ago, accompanied by high blood pressure that lasted about 15 minutes. Since then, she has been fine. - History Of Current Complaint Chief Complaint: EDNeurologicalDeficit Stated Complaint: CARDIAC ISSUES Time Seen by Provider: 04/23/18 19:46 Hx Obtained From: Patient Onset/Duration: Resolved, Suddenly Timing: Intermittent Episode Lasting - ~15 minutes, three days ago Severity Initially: Mild Severity Currently: None Character: Lightheaded, Weak Aggravating Factor(s): Nothing Alleviating Factor(s): Nothing Associated Signs And Symptoms: Positive: Other: - spacey, tingly, "not like herself" - Allergies/Home Medications Allergies/Adverse Reactions: Allergies Allergy/AdvReac Type Severity Reaction Status Date / Time shellfish derived Allergy Severe Difficulty Verified 01/29/18 11:10 Breathing grape Allergy Difficulty Verified 01/29/18 11:10 Breathing grape seed Allergy Difficulty Verified 01/29/18 11:10 Breathing kiwi Allergy Difficulty Verified 01/29/18 11:10 Breathing Home Medications: Home Medications Azelastine/Fluticasone DAVE(NF [Dymista(NF)] 1 spray BOTH NARES BID 04/23/18 [ History Confirmed 04/23/18] Fexofenadine (NF) [Cuca 180 (NF)] 180 mg PO DAILY 04/23/18 [History Confirmed 04/23/18] Lisinopril [Zestril 5 MG-] 5 mg PO DAILY 04/23/18 [History Confirmed 04/23/18] PMH/Surg Hx/FS Hx/Imm Hx Previously Healthy: No Endocrine/Hematology History: Denies: Hx Anticoagulant Therapy - ASA daily, Hx Diabetes Cardiovascular History: Reports: Hx Hypertension Denies: Hx Pacemaker/ICD Comment Only: Other Cardiovascular Problems/Disorders - heart murmur Respiratory History: Reports: Hx Asthma, Other Respiratory Problems/Disorders - Chronic cough GI History: Reports: Hx Gastroesophageal Reflux Disease, Other GI Disorders - LACTOSE INTOLERANCE History: Denies: Hx Renal Disease Musculoskeletal History: Reports: Hx Arthritis - HIPS, KNEES, SHOULDERS, Hx Osteoporosis, Hx Scoliosis, Other Musculoskeletal History - 2005 LEFT TKR, OSTEOARTHRITIS RIGHT KNEE, EFFUSION Sensory History: Reports: Hx Contacts or Glasses Denies: Hx Cataracts, Hx Hearing Aid Opthamlomology History: Reports: Hx Contacts or Glasses Denies: Hx Cataracts Neurological History: Reports: Hx Migraine - AURA ONLY, NO HEADACHE, Hx Transient Ischemic Attacks (TIA) Denies: Hx Headaches, Other Neuro Impairments/Disorders - PAIN CLINIC PT. Psychiatric History: Denies: Hx Panic Disorder - Cancer History Cancer Type, Location and Year: BREAST Hx Chemotherapy: Yes - 1999 RIGHT BREAST CA Hx Radiation Therapy: Yes - BREAST - Surgical History Surgery Procedure, Year, and Place: [place]IAL SEGMENTAL [place] [facility] [place]. LEFT TOTAL KNEE REPLACEMENT 2004 [place]. [place] [facility] [place] RIGHT TOTAL KNEE [place]UNE 2016 Hx Anesthesia Reactions: Yes - USUALLY EXPERIENCES WEAKNESS, DIZZINESS Infectious Disease History: No Infectious Disease History: Denies: Hx Clostridium Difficile, Hx Hepatitis, Hx Human Immunodeficiency Virus (HIV), History Other Infectious Disease, Traveled Outside the [place] in Last 30 Days - Family History Known Family History: Positive: Cardiac Disease, Hypertension Negative: Diabetes - Social History Alcohol Use: None Hx Substance Use: No Substance Use Type: Reports: None Hx Tobacco Use: No Smoking Status (MU): Never Smoked Tobacco Have You Smoked in the Last Year: No Review of Systems Negative: Fever Negative: Abdominal Pain All Other Systems Reviewed And Are Negative: Yes Physical Exam - Summary Physical Exam Summary: VITAL SIGNS: Reviewed. GENERAL: Patient is a well-developed and nourished female who is lying comfortable in the stretcher. Patient is not in any acute respiratory distress. HEAD AND FACE: No signs of trauma. No ecchymosis, hematomas or skull depressions. No sinus tenderness. EYES: PERRLA, EOMI x 2, No injected conjunctiva, no nystagmus. EARS: Hearing grossly intact. Ear canals and tympanic membranes are within normal limits. MOUTH: Oropharynx within normal limits. NECK: Supple, trachea is midline, no adenopathy, no JVD, no carotid bruit, no c- spine tenderness, neck with full ROM. CHEST: Symmetric, no tenderness at palpation LUNGS: Clear to auscultation bilaterally. No wheezing or crackles. CVS: Regular rate and rhythm, S1 and S2 present, no murmurs or gallops appreciated. ABDOMEN: Soft, non-tender. No signs of distention. No rebound no guarding, and no masses palpated. Bowel sounds are normal. EXTREMITIES: FROM in all major joints, no edema, no cyanosis or clubbing. NEURO: Alert and oriented x 3. No acute neurological deficits. Speech is normal and follows commands. SKIN: Dry and warm Triage Information Reviewed: Yes Vital Signs On Initial Exam: Initial Vitals Temp Pulse Resp BP Pulse Ox 97.9 F 92 20 162/95 97 04/23/18 18:33 04/23/18 18:33 04/23/18 18:33 04/23/18 18:33 04/23/18 18:33 Vital Signs Reviewed: Yes Diagnostics - Vital Signs Vital Signs Temp Pulse Resp BP Pulse Ox 04/23/18 18:33 97.9 F 92 20 162/95 97 - Laboratory Result Diagrams: 04/23/18 19:24 04/23/18 19:24 Lab Statement: Any lab studies that have been ordered have been reviewed, and results considered in the medical decision making process. - EKG 2012 Cardiac Rate: NL - 60bpm EKG Rhythm: Sinus Rhythm ST Segment: Non-Specific - in inferior lead Ectopy: None Dizzy Course/Dx - Course Course Of Treatment: Pt is a 78 y/o F presenting to the ED for a spell she had a few days ago. She saw her doctor today who instructed her to come to the ED due to this episode of about 15 minutes where she felt dizzy, lightheaded, out of it, and not herself. She notes her bp was high and that she has a hx of a TIA. The pt is asymptomatic and stable in the ED. Per Dr. Diaz's recommendation, I will be sending the pt home with recommendations to increase her aspirin Rx to 162mg. I also will recommend increasing her zestril from 5mg to 10mg. It could also be a mild case of hypertensive encephalopathy due to the pt's sx improving after the pt's blood pressure improved. Dx include HTN and TIA. - Diagnoses Provider Diagnoses: TIA (transient ischemic attack), HTN (hypertension) Discharge - Sign-Out/Discharge Documenting (check all that apply): Patient Departure Patient Received Moderate/Deep Sedation with Procedure: No - Discharge Plan Condition: Stable Disposition: HOME Referrals: Javier Cool MD [Primary Care Provider] - Additional Instructions: PLEASE FOLLOW UP WITH YOUR PRIMARY CARE PROVIDER IN 1-2 DAYS. INCREASE ASPIRIN DOSAGE FROM 81MG TO 162MG, AND ZESTRIL FROM 5MG TO 10MG. RETURN TO THE ED WITH ANY NEW OR WORSENING SYMPTOMS. - Attestation Statements Document Initiated by Scribe: Yes Documenting Scribe: Kaitlin Bhat Provider For Whom Scribe is Documenting (Include Credential): Robbie Benavidez MD. Scribe Attestation: IKaitlin, scribed for Robbie Benavidez MD. on 04/23/18 at 2134. Status of Scribe Document: Ready Consult Consult: 2026 - Spoke with Dr. Diaz of neurology about the pt's present condition, who recommended increasing the pt's dose of aspirin from 81mg PO daily to 162mg PO daily.
[2018-04-23 20:28] LABS: ABS Basophils 0.1 10^3/ul (0-0.2); ABS Eosinophils 0.2 10^3/ul (0-0.6); ABS Lymphocytes 1.5 10^3/ul (1.0-4.8); ABS Monocytes 0.8 10^3/ul (0-0.8); ABS Nucleated RBC 0 10^3/ul; Eosinophil % 3.4 %; Hematocrit 37 % (35-47); Hemoglobin 12.5 g/dl (12.0-16.0); Lymphocyte % 26.6 %; Mean Corpuscular HGB Conc 33 g/dl (31-36); Mean Corpuscular Hemoglobin 31 pg (27-31); Mean Corpuscular Volume 93 fL (80-97); Mean Platelet Volume 8.4 fL (7.4-10.4); Nucleated Red Blood Cells % 0.1; Platelet Count 212 10^3/ul (150-450); Red Blood Count 4.02 10^6/ul (4.00-5.40); Red Cell Distribution Width 14 % (10.5-15); White Blood Count 5.5 10^3/ul (3.5-10.8)
[2018-04-23] MEDS ORDERED: Aspirin 81 mg CHEW TAB* 81 MG TAB.CHEW PO ONE (20:28)
[2018-04-23 20:49] LABS: Activated Partial Thrombo Time 29.9 seconds (26.0-36.3); Albumin 3.8 g/dL (3.2-5.2); Albumin/Globulin Ratio 1.7 (1-3); BUN/Creatinine Ratio 35.6 (8-20); Calcium 9.9 mg/dL (8.6-10.3); EGFR African American 76.4 (>60); EGFR Non-African American 63.1 (>60); Globulin 2.3 g/dL (2-4); INR 0.92 (0.77-1.02); Magnesium 2.2 mg/dL (1.9-2.7); Total Bilirubin 0.3 mg/dL (0.2-1.0); Total Protein 6.1 g/dL (6.4-8.9)
[2018-04-23 21:50] VITALS: BP 157/60
== END 2018-04-23 21:52 | disposition home or self-care (01) ==
LOC: ED 18:26
DX: G45.9 Transient cerebral ischemic attack, unspecified (principal); I10 Essential (primary) hypertension; J45.909 Unspecified asthma, uncomplicated; K21.9 Gastro-esophageal reflux disease without esophagitis; Z85.3 Personal history of malignant neoplasm of breast
CPT/HCPCS: 36415; 80053; 83735; 85025; 85610; 85730; 93005; 99283; A9270-GY

== ENCOUNTER 2020-02-14 16:33 | Inpatient (IN) ==
[2020-02-14] MEDS ORDERED: NS 0.9% 1000 ml BAG 1,000 ML IV ONE (17:25)
[2020-02-14 17:58] LABS: ABS Basophils 0.1 10^3/ul (0-0.2); ABS Eosinophils 0.1 10^3/ul (0-0.6); ABS Monocytes 0.8 10^3/ul (0-0.8); ABS Neutrophils 3.2 10^3/ul (1.5-7.7); Eosinophil % 1.4 %; Hematocrit 37 % (35-47); Hemoglobin 12.5 g/dL (12.0-16.0); Lymphocyte % 19.6 %; Mean Corpuscular HGB Conc 34 g/dL (31-36); Mean Corpuscular Hemoglobin 31 pg (27-31); Mean Corpuscular Volume 92 fL (80-97); Mean Platelet Volume 8.6 fL (7.4-10.4); Nucleated Red Blood Cells % 0.1; Platelet Count 220 10^3/uL (150-450); Red Blood Count 4.06 10^6 /uL (3.70-4.87); Red Cell Distribution Width 15 % (10-15); White Blood Count 5.1 10^3/uL (3.5-10.8)
[2020-02-14 18:14] LABS: Albumin 3.9 g/dL (3.2-5.2); Albumin/Globulin Ratio 1.6 (1-3); BUN/Creatinine Ratio 22.5 (8-20); C Reactive Protein 1.58 mg/L (<8.01); Calcium 9.7 mg/dL (8.6-10.3); EGFR African American 63.3 (>60); EGFR Non-African American 52.3 (>60); Globulin 2.5 g/dL (2-4); Potassium 4.1 mmol/L (3.5-5.0); Total Bilirubin 0.4 mg/dL (0.2-1.0); Total Protein 6.4 g/dL (6.4-8.9)
[2020-02-14 19:00] LABS: Erythrocyte Sed Rate 40 mm/Hr (0-29)
[2020-02-15] MEDS: Heparin 5000 UNITS/ML 1 mL VIAL SUBCUT SCH ×2 (13:25→21:31)
[2020-02-16] MEDS: Heparin 5000 UNITS/ML 1 mL VIAL SUBCUT SCH ×3 (08:11→20:58)
[2020-02-16 09:53] LABS: ABS Basophils 0.1 10^3/ul (0-0.2); ABS Eosinophils 0.3 10^3/ul (0-0.6); ABS Lymphocytes 1.9 10^3/ul (1.0-4.8); ABS Monocytes 0.7 10^3/ul (0-0.8); ABS Neutrophils 2.7 10^3/ul (1.5-7.7); Eosinophil % 5.6 %; Hematocrit 40 % (35-47); Hemoglobin 13.2 g/dL (12.0-16.0); Lymphocyte % 33.1 %; Mean Corpuscular HGB Conc 33 g/dL (31-36); Mean Corpuscular Hemoglobin 31 pg (27-31); Mean Corpuscular Volume 92 fL (80-97); Mean Platelet Volume 8.6 fL (7.4-10.4); Platelet Count 235 10^3/uL (150-450); Red Blood Count 4.32 10^6 /uL (3.70-4.87); Red Cell Distribution Width 15 % (10-15); White Blood Count 5.7 10^3/uL (3.5-10.8)
[2020-02-16 10:09] LABS: BUN/Creatinine Ratio 23.2 (8-20); Calcium 9.7 mg/dL (8.6-10.3); EGFR African American 68.7 (>60); EGFR Non-African American 56.7 (>60); Potassium 3.4 mmol/L (3.5-5.0)
[2020-02-16] MEDS ORDERED: Potassium Chlor 20 meq TAB.ER PO ONE (10:33)
[2020-02-16] MEDS ORDERED: KCL 20 MEQ/100 ML IVPREMIX 20 MEQ/100 ML BAG IV ONE (10:33)
[2020-02-17 06:19] LABS: ABS Basophils 0.1 10^3/ul (0-0.2); ABS Eosinophils 0.2 10^3/ul (0-0.6); ABS Lymphocytes 2.1 10^3/ul (1.0-4.8); ABS Monocytes 0.7 10^3/ul (0-0.8); ABS Neutrophils 3.3 10^3/ul (1.5-7.7); Eosinophil % 3.7 %; Hematocrit 35 % (35-47); Hemoglobin 11.7 g/dL (12.0-16.0); Lymphocyte % 31.8 %; Mean Corpuscular HGB Conc 34 g/dL (31-36); Mean Corpuscular Hemoglobin 31 pg (27-31); Mean Corpuscular Volume 91 fL (80-97); Mean Platelet Volume 8.4 fL (7.4-10.4); Platelet Count 220 10^3/uL (150-450); Red Blood Count 3.82 10^6 /uL (3.70-4.87); Red Cell Distribution Width 15 % (10-15); White Blood Count 6.5 10^3/uL (3.5-10.8)
[2020-02-17] MEDS: Heparin 5000 UNITS/ML 1 mL VIAL SUBCUT SCH ×2 (06:22→13:23)
[2020-02-17 06:23] LABS: BUN/Creatinine Ratio 29.4 (8-20); Calcium 8.9 mg/dL (8.6-10.3); EGFR African American 78.1 (>60); EGFR Non-African American 64.5 (>60); HDL Cholesterol 71.9 mg/dL
[2020-02-17 15:36] VITALS: BP 141/100
[2020-02-18 01:06] LABS: Anaplasma phagocytophilum Negative (Negative); B. miyamotoi PCR, B Negative (Negative); Babesia divergens/MO-1 Negative (Negative); Babesia ducani Negative (Negative); Ehrlichia chaffeensis Negative (Negative); Ehrlichia ewingii/canis Negative (Negative); Ehrlichia muris eauclairensis Negative (Negative)
== END 2020-02-17 17:40 | disposition home or self-care (01) | DRG 65 ==
LOC: ED 16:33 → MEDTELE 21:25
PROVIDERS: ADMIT Hospitalist; ATTEND Internal Medicine

== ENCOUNTER 2021-05-26 09:08 | Observation (INO) ==
[2021-05-26] MEDS ORDERED: ceFAZolin 1 GM X ONE DOSE (AddVan) IVPB ×2 (10:30→10:45)
[2021-05-26] MEDS ORDERED: methylPREDNISolone 125 mg 2 ML VIAL IV ONE (10:31)
[2021-05-26] MEDS ORDERED: diPHENhydraMINE IV 50 MG/ML 1 ml VIAL (BENADRYL) IV ONE (10:34)
[2021-05-26] MEDS ORDERED: diPHENhydraMINE IV 50 MG/ML 1 ml VIAL (BENADRYL) ONE (10:36)
[2021-05-26] MEDS ORDERED: Midazolam 5 mg/5 ml VIAL 1 mg/ml 5 ml VIAL (5 mg) ONE ×2 (10:47→11:38)
[2021-05-26] MEDS ORDERED: Iohexol 300 (CONTRAST) 10 ML SDV ONE ×2 (10:48→12:01)
[2021-05-26] MEDS ORDERED: Lidocaine 1% MPF 5 ML VIAL ONE ×2 (10:48→11:40)
[2021-05-26] MEDS ORDERED: fentaNYL 100 mcg/2 ml 50 MCG/ML VIAL ONE (10:48)
[2021-05-26] MEDS ORDERED: Iohexol 180 (CONTRAST) 10 ML SDV IV ONE (12:00)
[2021-05-26] MEDS ORDERED: Atropine 0.1 MG/ML 10 ml SYR (1 mg) ONE (12:12)
[2021-05-26] MEDS ORDERED: FEXOFENADINE 180 MG PO PRN (12:51)
[2021-05-26] MEDS: ceFAZolin 500 MG VIAL 500 MG in NS 0.9% 50 ML 50 ML IVPB SCH (18:05)
[2021-05-27] MEDS: ceFAZolin 500 MG VIAL 500 MG in NS 0.9% 50 ML 50 ML IVPB SCH ×3 (01:42→16:56)
[2021-05-27] MEDS: CMCS: Lactase Enzyme (NF) 3,000 UNIT TAB PO SCH (08:27)
[2021-05-28] MEDS: ceFAZolin 500 MG VIAL 500 MG in NS 0.9% 50 ML 50 ML IVPB SCH ×2 (00:15→09:27)
[2021-05-28] MEDS: CMCS: Lactase Enzyme (NF) 3,000 UNIT TAB PO SCH (09:26)
[2021-05-28 15:55] VITALS: BP 102/50
== END 2021-05-28 14:15 | disposition home or self-care (01) ==
LOC: CHICATH 09:08 → MEDTELE 09:08
PROVIDERS: ADMIT Internal Medicine; ATTEND Internal Medicine

== ENCOUNTER 2023-11-05 16:53 | Observation (INO) ==
[2023-11-05 17:58] LABS: ABS Basophils 0.1 10^3/uL (0.0-0.1); ABS Eosinophils 0.2 10^3/uL (0.0-0.5); ABS Lymphocytes 1.1 10^3/uL (1.0-4.8); ABS Monocytes 0.7 10^3/uL (0.0-0.9); ABS Neutrophils 3.1 10^3/uL (1.5-7.6); Eosinophil % 3.3 %; Hematocrit 36.9 % (35-45); Hemoglobin 12.2 g/dL (11.5-14.3); Lymphocyte % 21.8 %; Mean Corpuscular Hemoglobin 29.9 pg (27-33); Mean Corpuscular Hgb Conc 33.1 g/dL (31-36); Mean Corpuscular Volume 90.3 fL (80-97); Mean Platelet Volume 8.1 fL (7.5-11.2); Platelet Count 214 10^3/uL (150-450); Red Blood Count 4.08 10^6/uL (3.63-4.92); Red Cell Distribution Width 18.5 % (12-17); White Blood Count 5.2 10^3/uL (3.8-11.8)
[2023-11-05 18:07] LABS: INR 1.46 (0.83-1.13)
[2023-11-05 18:50] LABS: Albumin 3.9 g/dL (3.2-5.2); Albumin/Globulin Ratio 1.9 (1-3); Calcium 9.7 mg/dL (8.6-10.3); Creatinine, Serum 1.26 mg/dL (0.51-0.95); Globulin 2.1 g/dL (2-4); Magnesium 2.3 mg/dL (1.9-2.7); Potassium 4.5 mmol/L (3.5-5.0); Total Bilirubin 0.5 mg/dL (0.2-1.0); eGFR CKD-EPI 42.6 (>60)
[2023-11-05 19:03] LABS: TSH Ultra Thyroid Stim Horm 1.52 mcIU/mL (0.34-5.60)
[2023-11-05 20:31] LABS: High Sensitivity Troponin 1 Hr 16 pg/mL (<15)
[2023-11-05] MEDS: Iodixanol (CONTRAST) 320 MG/ML 100 ML SDV IV ONE (21:57)
[2023-11-06 02:59] LABS: HDL Cholesterol 62.8 mg/dL
[2023-11-06] MEDS: CMCS: Ranolazine 500 mg TAB ER (NF) PO SCH (09:49)
[2023-11-06] MEDS: Isosorbide Mononit ER 30mg TAB PO SCH (09:49)
[2023-11-06] MEDS: Sulfur Hexaflouride MICROSPHR 25 MG VIAL IV ONE (13:11)
[2023-11-07 06:25] LABS: Hematocrit 36.8 % (35-45); Hemoglobin 12.3 g/dL (11.5-14.3); Mean Corpuscular Hemoglobin 29.9 pg (27-33); Mean Corpuscular Hgb Conc 33.4 g/dL (31-36); Mean Corpuscular Volume 89.7 fL (80-97); Platelet Count 209 10^3/uL (150-450); Red Cell Distribution Width 18.5 % (12-17); White Blood Count 6.4 10^3/uL (3.8-11.8)
[2023-11-07 06:37] LABS: Calcium 8.9 mg/dL (8.6-10.3); Creatinine, Serum 1.29 mg/dL (0.51-0.95); Potassium 4.1 mmol/L (3.5-5.0); eGFR CKD-EPI 41.4 (>60)
[2023-11-08 08:18] LABS: Calcium 8.9 mg/dL (8.6-10.3); Creatinine, Serum 1.19 mg/dL (0.51-0.95); Magnesium 2.2 mg/dL (1.9-2.7); Potassium 4.1 mmol/L (3.5-5.0); eGFR CKD-EPI 45.7 (>60)
[2023-11-08 14:09] VITALS: BP 135/60
== END 2023-11-08 17:18 | disposition home or self-care (01) ==
LOC: EDHOLD 16:53 → ED 16:53 → SUATTDRO 11-06 00:39 → MEDTELE 11-06 04:38
PROVIDERS: ADMIT Internal Medicine; ATTEND Internal Medicine